=== PATIENT | male | born 1990 | race Caucasian/White ===

== ENCOUNTER 2016-10-09 20:04 | Emergency (ER) | payer OTHER ==
[2016-10-09 20:27] VITALS: BP 140/80; PULSE 103; RESP 18; TEMP 99.4
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
--- NOTE | 2016-10-09 21:24 | XR ---
EXAMINATION TYPE: XR foot complete LT DATE OF EXAM: 10/09/2016 9:04 PM COMPARISON: NONE HISTORY: Pain TECHNIQUE: 3 views FINDINGS: I see no fracture nor dislocation. Metatarsals are intact. There are no erosions. IMPRESSION: Negative left foot exam.
== END 2016-10-09 21:42 | disposition home or self-care (01) ==
LOC: EC 20:04
DX: S90.32XA Contusion of left foot, initial encounter (principal); W17.89XA Other fall from one level to another, initial encounter; F41.9 Anxiety disorder, unspecified; F32.9 Major depressive disorder, single episode, unspecified; F17.200 Nicotine dependence, unspecified, uncomplicated; F12.90 Cannabis use, unspecified, uncomplicated; Z91.030 Bee allergy status; Z88.8 Allergy status to other drugs, medicaments and biological substances; Z79.899 Other long term (current) drug therapy
CPT/HCPCS: 99283

== ENCOUNTER 2016-10-19 11:38 | Emergency (ER) | payer OTHER ==
[2016-10-19 11:59] VITALS: TEMP 97
[2016-10-19 15:32] VITALS: BP 145/68; PULSE 56; RESP 18
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
[2016-10-19] MEDS: ONDANSETRON 4 MG ODT STARTER PACK 2 TAB BTL PO STA (15:39)
== END 2016-10-19 15:43 | disposition home or self-care (01) ==
LOC: EC 11:38
DX: R11.2 Nausea with vomiting, unspecified (principal); F90.9 Attention-deficit hyperactivity disorder, unspecified type; F41.9 Anxiety disorder, unspecified; F32.9 Major depressive disorder, single episode, unspecified; F17.200 Nicotine dependence, unspecified, uncomplicated; Z79.899 Other long term (current) drug therapy; Z88.8 Allergy status to other drugs, medicaments and biological substances; Z91.030 Bee allergy status
CPT/HCPCS: 99283; S0119

== ENCOUNTER 2016-10-21 20:57 | Emergency (ER) | payer OTHER ==
[2016-10-21] MEDS ORDERED: SODIUM CHLORIDE 0.9% 2,000 ML IV STA (21:20)
[2016-10-21] MEDS ORDERED: METOCLOPRAMIDE 5 MG/ML 2 ML VIAL IVP STA (21:20)
[2016-10-21] MEDS ORDERED: diphenhydrAMINE 50 MG/ML 1 ML VIAL IVP STA (21:20)
[2016-10-21 22:06] LABS: Aty Lym Flag Moderate; CH 32.4; CHCM 35.5; HCT 42.4 % (39.0-53.0); HDW 2.37; HGB 14.9 gm/dL (13.0-17.5); Immature Gran Flag Slight; MCH 32.1 pg (25.0-35.0); MCV 91.5 fL (80.0-100.0); Mean Platelet Volume 7.6; RBC 4.63 m/uL (4.30-5.90); RDW 12.1 % (11.5-15.5); WBC 4.5 k/uL (3.8-10.6); WBC (Perox) 4.63
[2016-10-21 22:07] LABS: Appearance,Urine Clear (Clear); Bilirubin,Urine Negative (Negative); Glucose,Urine (UA) Negative (Negative); Ketones,Urine Negative (Negative); Leukocyte Esterase,Urine Negative (Negative); Nitrite,Urine Negative (Negative); PH, Urine 5.5 (5.0-8.0); Protein,Urine Trace (Negative); Specific Gravity,Urine 1.024 (1.001-1.035); UA Billing (MACRO vs. MICRO) CHEM
[2016-10-21 22:15] LABS: ALT 85 U/L (21-72); AST 98 U/L (17-59); Alkaline Phosphatase 82 U/L (38-126); Amylase 51 U/L (30-110); Anion Gap 14 mmol/L; Blood Urea Nitrogen 18 mg/dL (9-20); Calcium 8.7 mg/dL (8.4-10.2); Carbon Dioxide 22 mmol/L (22-30); Chloride 105 mmol/L (98-107); Glucose 101 mg/dL (74-99); Non-African American GFR(MDRD) >60 (>60 ml/min/1.73 sqM); Potassium 3.5 mmol/L (3.5-5.1); Sodium 141 mmol/L (137-145); Total Bilirubin 0.8 mg/dL (0.2-1.3); Total Protein 7.8 g/dL (6.3-8.2)
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
--- NOTE | 2016-10-21 22:25 | XR ---
EXAM: XR KUB, 2 views INDICATION: 26-year-old male with pain. COMPARISON: None. FINDINGS: Single frontal view of the abdomen demonstrates nonspecific air-fluid levels in the distribution of the large intestine which may represent ileus or a nonspecific colitis/enteritis. Distal colonic obstruction is felt less likely. No evidence of organomegaly, abnormal calcifications or obvious soft tissue masses. The osseous structures are intact. IMPRESSION: Nonspecific colonic air-fluid levels without evidence of colonic or small bowel dilatation. Findings may represent ileus or nonspecific colitis/enteritis. Distal colonic obstruction is felt less likely.
[2016-10-21 22:42] LABS: Add Differential Manual Differential
[2016-10-21 22:45] LABS: Nucleated Red Blood Cells 0 /100 WBC (0-0); Total Cells Counted 100
[2016-10-21 22:47] LABS: Manual Review Performed
[2016-10-21] MEDS ORDERED: ONDANSETRON 4 MG/2 ML VIAL IVP STA (22:59)
[2016-10-21 23:40] VITALS: BP 143/71; PULSE 87; RESP 18; TEMP 97.1
== END 2016-10-21 23:40 | disposition home or self-care (01) ==
LOC: EC 20:57
DX: K52.9 Noninfective gastroenteritis and colitis, unspecified (principal); F41.9 Anxiety disorder, unspecified; F32.9 Major depressive disorder, single episode, unspecified; F17.200 Nicotine dependence, unspecified, uncomplicated; Z79.899 Other long term (current) drug therapy; Z91.030 Bee allergy status; Z88.8 Allergy status to other drugs, medicaments and biological substances; F12.90 Cannabis use, unspecified, uncomplicated
CPT/HCPCS: 96374; 96375; 99284; 36415; 80053; 82150; 83690; 85025; 81003; 74000; 96361; J1200; J2765; J2405

== ENCOUNTER 2016-12-15 23:13 | Emergency (ER) | payer OTHER ==
[2016-12-15 23:30] VITALS: TEMP 100.3
[2016-12-16] MEDS ORDERED: cefTRIAXone 1,000 MG VIAL (IM USE) IM STA (00:22)
[2016-12-16] MEDS ORDERED: ACETAMINOPHEN TAB 500 MG TAB PO STA (00:26)
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
[2016-12-16 00:44] VITALS: BP 128/69; PULSE 101; RESP 18
--- NOTE | 2016-12-16 01:09 | XR ---
EXAM: XR Chest, 2 Views CLINICAL HISTORY: Reason: Cough/fever TECHNIQUE: Frontal and lateral views of the chest. COMPARISON: 04/08/16. FINDINGS: Lungs: Mild basilar opacities, possible atelectasis. No consolidation. Pleural space: Unremarkable. No pneumothorax. Heart: Unremarkable. Mediastinum: Unremarkable. Bones/joints: Unremarkable. IMPRESSION: Mild basilar opacities, possible atelectasis. No consolidation.
== END 2016-12-16 00:42 | disposition home or self-care (01) ==
LOC: EC 23:13
DX: J45.909 Unspecified asthma, uncomplicated (principal); R09.81 Nasal congestion; F90.9 Attention-deficit hyperactivity disorder, unspecified type; F32.9 Major depressive disorder, single episode, unspecified; F41.9 Anxiety disorder, unspecified; F17.200 Nicotine dependence, unspecified, uncomplicated; Z79.899 Other long term (current) drug therapy; Z91.030 Bee allergy status; Z88.8 Allergy status to other drugs, medicaments and biological substances
CPT/HCPCS: 71020; 99283; 96372; J0696

== ENCOUNTER → 2017-02-03 | Outpatient (CLI) | payer OTHER ==
--- NOTE | 2017-02-03 12:25 | CT ---
EXAMINATION TYPE: CT chest wo con DATE OF EXAM: 02/03/2017 COMPARISON: Radiographs 12/16/2016 HISTORY: 26-year-old male complains of cough and abnormal CXR. TECHNIQUE: Contiguous axial scanning of the chest without IV contrast. Coronal and sagittal reconstru ctions performed. CT DLP: 556 mGycm Automated exposure control for dose reduction was used. FINDINGS: The heart is normal size without pericardial effusion. Aorta is normal caliber with bovine configuration to the aortic arch. There is soft tissue density in the anterior mediastinum compatible with residual thymus in this rela tively young patient. No thoracic lymphadenopathy allowing for noncontrast technique. Evaluation of the lungs shows minimal diffuse bronchial wall thickening. No consolidation or pleural effusion. Visualized upper abdomen shows no gross abnormality. Bones: Disc/osteophyte complex at T12-L1 mildly narrowing the spinal canal. No osseous destructive pr ocess. No osseous destructive process. IMPRESSION: 1. MINIMAL BRONCHIAL WALL THICKENING COULD REFLECT BRONCHITIS OR CHRONIC ASTHMA. 2. OTHERWISE, NO SPECIFIC ABNORMALITY SEEN.
== END | disposition home or self-care (01) ==
LOC: RADCTMAIN 11:37
PROVIDERS: ATTEND Internal Medicine Pulmonary Disease
DX: J98.09 Other diseases of bronchus, not elsewhere classified (principal); R06.02 Shortness of breath; R05 Cough
CPT/HCPCS: 71250

== ENCOUNTER 2017-02-07 21:14 | Emergency (ER) | payer OTHER ==
[2017-02-07] MEDS ORDERED: KETOROLAC 30 MG/ML 1 ML VIAL IVP STA (21:34)
[2017-02-07] MEDS ORDERED: diphenhydrAMINE 50 MG/ML 1 ML VIAL IVP STA (21:34)
[2017-02-07] MEDS ORDERED: SODIUM CHLORIDE 0.9% 1,000 ML IV ONE ×2 (21:34→23:44)
[2017-02-07] MEDS ORDERED: METOCLOPRAMIDE 5 MG/ML 2 ML VIAL IVP STA (21:34)
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
[2017-02-08 00:18] VITALS: BP 142/63; PULSE 97; RESP 16; TEMP 97.9
== END 2017-02-08 00:17 | disposition home or self-care (01) ==
LOC: EC 21:14 → SUPCPDRO 21:14 → EC 02-08 00:17
DX: G43.909 Migraine, unspecified, not intractable, without status migrainosus (principal); J45.909 Unspecified asthma, uncomplicated; F41.9 Anxiety disorder, unspecified; F32.9 Major depressive disorder, single episode, unspecified; F90.9 Attention-deficit hyperactivity disorder, unspecified type; F17.200 Nicotine dependence, unspecified, uncomplicated; Z79.899 Other long term (current) drug therapy; Z79.51 Long term (current) use of inhaled steroids; Z91.030 Bee allergy status; Z88.8 Allergy status to other drugs, medicaments and biological substances
CPT/HCPCS: 99283 ×2; 96374 ×2; 96375 ×3; 96361 ×3; J1200; J2765; J1885

== ENCOUNTER 2017-02-09 19:35 | Emergency (ER) | payer OTHER ==
[2017-02-09 19:45] VITALS: TEMP 99
[2017-02-09] MEDS ORDERED: SODIUM CHLORIDE 0.9% 1,000 ML IV ONE (20:23)
[2017-02-09 20:42] LABS: Appearance,Urine Clear (Clear); Basophils % (A) 0 %; Bilirubin,Urine Negative (Negative); CH 32.5; CHCM 35.1; Eosinophils # (A) 0.2 k/uL (0-0.7); Eosinophils % (A) 2 %; Glucose,Urine (UA) Negative (Negative); HCT 37.8 % (39.0-53.0); HDW 2.22; HGB 13.1 gm/dL (13.0-17.5); Ketones,Urine Negative (Negative); Leukocyte Esterase,Urine Negative (Negative); Luc # (Auto) 0.33; Luc % (Auto) 4; Lymphocytes % (A) 23 %; MCH 32.2 pg (25.0-35.0); MCHC 34.7 g/dL (31.0-37.0); MCV 93.1 fL (80.0-100.0); Mean Platelet Volume 8.4; Monocytes # (A) 0.8 k/uL (0-1.0); Monocytes % (A) 9 %; Neutrophils # (A) 5.4 k/uL (1.3-7.7); Neutrophils % (A) 62 %; Nitrite,Urine Negative (Negative); PH, Urine 6.5 (5.0-8.0); Protein,Urine Trace (Negative); RBC 4.07 m/uL (4.30-5.90); RDW 13.3 % (11.5-15.5); Specific Gravity,Urine 1.024 (1.001-1.035); UA Billing (MACRO vs. MICRO) CHEM; WBC 8.7 k/uL (3.8-10.6); WBC (Perox) 8.86
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
[2017-02-09 20:51] LABS: ALT 29 U/L (21-72); AST 19 U/L (17-59); Alkaline Phosphatase 64 U/L (38-126); Amylase 48 U/L (30-110); Anion Gap 13 mmol/L; Blood Urea Nitrogen 15 mg/dL (9-20); Carbon Dioxide 25 mmol/L (22-30); Chloride 104 mmol/L (98-107); Glucose 96 mg/dL (74-99); Non-African American GFR(MDRD) >60 (>60 ml/min/1.73 sqM); Potassium 3.8 mmol/L (3.5-5.1); Sodium 142 mmol/L (137-145); Total Bilirubin 0.7 mg/dL (0.2-1.3); Total Protein 6.6 g/dL (6.3-8.2)
[2017-02-09 20:54] VITALS: BP 120/88; PULSE 86; RESP 18
== END 2017-02-09 21:30 | disposition home or self-care (01) ==
LOC: EC 19:35
DX: R11.2 Nausea with vomiting, unspecified (principal); J45.909 Unspecified asthma, uncomplicated; F90.9 Attention-deficit hyperactivity disorder, unspecified type; F32.9 Major depressive disorder, single episode, unspecified; F41.9 Anxiety disorder, unspecified; F17.200 Nicotine dependence, unspecified, uncomplicated; Z79.51 Long term (current) use of inhaled steroids; Z79.899 Other long term (current) drug therapy; Z91.030 Bee allergy status; Z88.8 Allergy status to other drugs, medicaments and biological substances
CPT/HCPCS: 36415; 80053; 81003; 82150; 83690; 85025; 96360; 99284

== ENCOUNTER 2017-03-03 16:55 | Emergency (ER) | payer OTHER ==
[2017-03-03 17:00] VITALS: BP 141/88; PULSE 110; RESP 18; TEMP 100.5
[2017-03-03] MEDS ORDERED: ONDANSETRON 4 MG/2 ML VIAL IVP STA (18:54)
[2017-03-03] MEDS ORDERED: SODIUM CHLORIDE 0.9% 1,000 ML IV STA (18:54)
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
--- NOTE | 2017-03-03 19:31 | XR ---
EXAMINATION TYPE: XR chest 2V DATE OF EXAM: 03/03/2017 COMPARISON: 12/16/2016 HISTORY: Abdominal pain and vomiting TECHNIQUE: Frontal and lateral views of the chest are obtained. FINDINGS: Heart and mediastinum are normal. Lungs are clear. Diaphragm is normal. There is probably an old left clavicle fracture. Bony thorax is intact. IMPRESSION: No active cardiopulmonary disease. No change.
--- NOTE | 2017-03-03 19:33 | XR ---
EXAMINATION TYPE: XR KUB DATE OF EXAM: 03/03/2017 COMPARISON: 10/21/2016 HISTORY: Abdominal pain TECHNIQUE: 2 views FINDINGS: Bowel gas pattern is normal. There is no sign of intestinal obstruction or pneumoperitoneum . Fecal pattern is normal. Lung bases are clear. There are no pathologic calcifications. IMPRESSION: Nonacute abdomen. There is clearing of the large bowel fluid levels compared to last exam .
[2017-03-03 19:35] LABS: Basophils % (A) 1 %; CH 33.1; CHCM 35.1; Eosinophils # (A) 0.2 k/uL (0-0.7); Eosinophils % (A) 2 %; HCT 45.9 % (39.0-53.0); HDW 2.13; HGB 15.4 gm/dL (13.0-17.5); Luc # (Auto) 0.24; Luc % (Auto) 3; Lymphocytes % (A) 27 %; MCH 31.8 pg (25.0-35.0); MCHC 33.6 g/dL (31.0-37.0); MCV 94.7 fL (80.0-100.0); Monocytes # (A) 0.5 k/uL (0-1.0); Monocytes % (A) 6 %; Neutrophils # (A) 4.6 k/uL (1.3-7.7); Neutrophils % (A) 61 %; RBC 4.85 m/uL (4.30-5.90); RDW 13.7 % (11.5-15.5); WBC 7.5 k/uL (3.8-10.6); WBC (Perox) 7.35
[2017-03-03 19:37] LABS: Appearance,Urine Clear (Clear); Bilirubin,Urine Negative (Negative); Glucose,Urine (UA) Negative (Negative); Ketones,Urine Negative (Negative); Leukocyte Esterase,Urine Negative (Negative); Nitrite,Urine Negative (Negative); PH, Urine 6.5 (5.0-8.0); Protein,Urine Negative (Negative); Specific Gravity,Urine 1.017 (1.001-1.035); UA Billing (MACRO vs. MICRO) CHEM; Urobilinogen,Urine <2.0 mg/dL (<2.0)
[2017-03-03 19:50] LABS: ALT 31 U/L (21-72); AST 18 U/L (17-59); Alkaline Phosphatase 69 U/L (38-126); Amylase 39 U/L (30-110); Anion Gap 13 mmol/L; Blood Urea Nitrogen 10 mg/dL (9-20); Calcium 9.4 mg/dL (8.4-10.2); Carbon Dioxide 23 mmol/L (22-30); Chloride 106 mmol/L (98-107); Glucose 88 mg/dL (74-99); Non-African American GFR(MDRD) >60 (>60 ml/min/1.73 sqM); Sodium 142 mmol/L (137-145); Total Bilirubin 0.6 mg/dL (0.2-1.3); Total Protein 7.3 g/dL (6.3-8.2)
== END 2017-03-03 20:33 | disposition home or self-care (01) ==
LOC: EC 16:55
DX: K21.9 Gastro-esophageal reflux disease without esophagitis (principal); R11.2 Nausea with vomiting, unspecified; J45.909 Unspecified asthma, uncomplicated; F90.9 Attention-deficit hyperactivity disorder, unspecified type; F32.9 Major depressive disorder, single episode, unspecified; F41.9 Anxiety disorder, unspecified; F17.200 Nicotine dependence, unspecified, uncomplicated; Z79.51 Long term (current) use of inhaled steroids; Z79.899 Other long term (current) drug therapy; Z88.8 Allergy status to other drugs, medicaments and biological substances; Z91.030 Bee allergy status
CPT/HCPCS: 36415; 93005; 80053; 82150; 83605; 83690; 85025; 81003; 87040; 71020; 74000; 99284; 96374; 96361; J2405

== ENCOUNTER 2017-03-09 19:05 | Inpatient (IN) | payer MEDICAID, OTHER ==
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
[2017-03-09] MEDS ORDERED: MAGNESIUM HYDROXIDE 2,400 MG/10 ML CUP PO PRN (23:17)
[2017-03-09] MEDS ORDERED: ZIPRASIDONE 20 MG VIAL IM PRN (23:17)
[2017-03-09] MEDS ORDERED: LORazepam 1 MG TAB PO PRN (23:17)
[2017-03-09] MEDS ORDERED: ACETAMINOPHEN TAB 325 MG TAB PO PRN (23:17)
[2017-03-09] MEDS ORDERED: MAG HYDROX/AL HYDROX/SIMETH 30 ML CUP PO PRN (23:17)
[2017-03-09 23:54] VITALS: BMI 21.5
[2017-03-10 08:40] LABS: Basophils % (A) 1 %; CH 33.1; CHCM 34.9; Eosinophils # (A) 0.2 k/uL (0-0.7); Eosinophils % (A) 5 %; HCT 44.5 % (39.0-53.0); HDW 2.19; HGB 15.1 gm/dL (13.0-17.5); Luc # (Auto) 0.22; Luc % (Auto) 4; Lymphocytes # (A) 2.1 k/uL (1.0-4.8); Lymphocytes % (A) 41 %; MCH 32.4 pg (25.0-35.0); MCV 95.1 fL (80.0-100.0); Mean Platelet Volume 8.2; Monocytes # (A) 0.4 k/uL (0-1.0); Monocytes % (A) 8 %; Neutrophils # (A) 2.1 k/uL (1.3-7.7); Neutrophils % (A) 41 %; RBC 4.68 m/uL (4.30-5.90); RDW 13.3 % (11.5-15.5); WBC 5.1 k/uL (3.8-10.6); WBC (Perox) 4.76
[2017-03-10 09:05] LABS: ALT 28 U/L (21-72); AST 14 U/L (17-59); Alkaline Phosphatase 58 U/L (38-126); Anion Gap 10 mmol/L; Bilirubin, Delta 0.2 mg/dL (0.0-0.2); Blood Urea Nitrogen 13 mg/dL (9-20); Calcium 9.4 mg/dL (8.4-10.2); Carbon Dioxide 27 mmol/L (22-30); Chloride 106 mmol/L (98-107); Glucose 85 mg/dL (74-99); Non-African American GFR(MDRD) >60 (>60 ml/min/1.73 sqM); Potassium 4.9 mmol/L (3.5-5.1); Sodium 143 mmol/L (137-145); Total Bilirubin 0.9 mg/dL (0.2-1.3); Total Protein 7.1 g/dL (6.3-8.2)
[2017-03-10] MEDS: NICOTINE 14MG/24HR PATCH TRANSDERM SCH (09:51)
[2017-03-10] MEDS: LISINOPRIL 5 MG TAB PO SCH (10:09)
[2017-03-10] MEDS: BECLOMETHASONE DIP 80 MCG/PUFF INHALER INHALATION SCH ×2 (12:26→19:05)
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
[2017-03-10] MEDS: ALBUTEROL INHALER 60 PUFF/8 GM INHALER INHALATION PRN (19:05)
[2017-03-10] MEDS: OXYBUTYNIN CHLORIDE 5 MG TAB PO SCH (20:54)
[2017-03-10] MEDS ORDERED: QUEtiapine 200 MG TAB PO SCH (21:00)
[2017-03-11] MEDS: OXYBUTYNIN CHLORIDE 5 MG TAB PO SCH ×2 (08:10→20:45)
[2017-03-11] MEDS: NICOTINE 14MG/24HR PATCH TRANSDERM SCH (08:10)
[2017-03-11] MEDS: LISINOPRIL 5 MG TAB PO SCH (08:10)
[2017-03-11] MEDS: BECLOMETHASONE DIP 80 MCG/PUFF INHALER INHALATION SCH (09:40)
[2017-03-11 09:57] LABS: Appearance,Urine Clear (Clear); Bilirubin,Urine Negative (Negative); Glucose,Urine (UA) Negative (Negative); Ketones,Urine Negative (Negative); Leukocyte Esterase,Urine Negative (Negative); Nitrite,Urine Negative (Negative); PH, Urine 6.5 (5.0-8.0); Protein,Urine Negative (Negative); Specific Gravity,Urine 1.028 (1.001-1.035); UA Billing (MACRO vs. MICRO) CHEM
[2017-03-11] MEDS: QUEtiapine 200 MG TAB PO SCH ×3 (13:43→20:45)
--- NOTE | 2017-03-12 08:03 | PN ---
PROGRESS NOTE DATE OF SERVICE: 03/11/2017. CHIEF COMPLAINT: The patient was admitted due to increasing depression with suicide thoughts. He had been living in a correction though was evicted. He stated he tried to hang himself on a tree but the branch broke. He has had a history of suicide attempts in the past. INTERVAL HISTORY: The patient has been doing fair. He had a quiet evening last night. He slept fair today. He has been up. He tends to isolate. He continues to have anxiety complaints. He notes that when he followed by [facility] he had been on Seroquel 400 mg a day which he felt helped mainly with sleep. Note that Dr. Klein restarted Seroquel with a plan to possibly titrate up on his medication. The patient states that he does feel that in the past Seroquel has helped him both with some of his anxiety and depression issues as well as sleepy. Also does have a history of apparent manic episodes and has been diagnosed with bipolar disorder. He says that Seroquel does not make him excessively sleepy in the daytime. He feels it helps keep his thoughts clear and somewhat slowed down. He has not had change in his general health. He tolerates the psychotropic medication. MENTAL STATUS: Patient gave fair eye contact. He was a little restless. Speech was clear. He answered questions with brief responses. He had a quiet manner. His affect was blunted. His mood reserved. He seemed somewhat distressed. ASSESSMENT: I will continue the current diagnosis and treatment plan. I will increase the patient's Seroquel I discussed with the patient that we could increase his dose to 200 mg 3 times a day. I encouraged the patient to monitor to see how he does as far as any daytime sedation. I discussed with the patient the importance of trying to make groups to help with addressing some of his stress issues and helping to develop coping skills. We will continue to focus on stabilization and discharge planning. MMGONZALESL / SARAYN: [id number] /
[2017-03-12] MEDS: LISINOPRIL 5 MG TAB PO SCH (08:20)
[2017-03-12] MEDS: OXYBUTYNIN CHLORIDE 5 MG TAB PO SCH ×2 (08:20→20:03)
[2017-03-12] MEDS: NICOTINE 14MG/24HR PATCH TRANSDERM SCH (08:20)
[2017-03-12] MEDS: BECLOMETHASONE DIP 80 MCG/PUFF INHALER INHALATION SCH ×3 (08:52→21:33)
[2017-03-12] MEDS: QUEtiapine 200 MG TAB PO SCH ×3 (09:50→20:03)
[2017-03-13] MEDS: LISINOPRIL 5 MG TAB PO SCH (08:33)
[2017-03-13] MEDS: NICOTINE 14MG/24HR PATCH TRANSDERM SCH (08:33)
[2017-03-13] MEDS: BECLOMETHASONE DIP 80 MCG/PUFF INHALER INHALATION SCH ×3 (08:59→21:13)
[2017-03-13] MEDS: OXYBUTYNIN CHLORIDE 5 MG TAB PO SCH ×2 (09:49→20:29)
--- NOTE | 2017-03-13 11:25 | PN ---
PROGRESS NOTE DATE OF SERVICE: 03/12/2017. CHIEF COMPLAINT: The patient was admitted due to increasing depression with suicide thoughts. He had been living in a longterm though was evicted. He stated he tried to hang himself on a tree but the branch broke. He has a history of suicide attempts in the past. INTERVAL HISTORY: The patient had a quiet evening last night. He slept through the night. He said he has been very tired today and has slept much of the day. He has not been attending groups. He tends to be withdrawn and keeps to himself. He will come out and socialize a little with others. He says that he has been quite tired much of the time and that this is been how things are for him for quite a while prior to coming into the hospital. He is not clear that medications may be causing sedation. He has not had change in his general health. He reports that he has had no problems with his medications. MENTAL STATUS: Patient sat without restlessness. Eye contact was fair. Psychomotor activity is slowed. Speech was monotone. He answered questions with brief responses. His thoughts were clear. Affect blunted. Mood reserved. He was somewhat distressed. ASSESSMENT: I will continue the current diagnosis and general treatment plan. I will change his Seroquel. Will give him Seroquel XR 100 mg in the morning, Seroquel XR 100 mg at 4:00 pm and regular Seroquel 200 mg at bedtime. The patient does note that the suicidal thoughts have abated. He says anxiety is less. We talked about discharge planning which would include setting up some kind of a family meeting or contact with a support person. Will continue to focus on stabilization and discharge planning. DALIA / SARAYN: [id number] / CLAIRE
--- NOTE | 2017-03-13 11:52 | P.PN ---
Progress Note - Text Interval History: Patient is a 26-year-old male who was seen today and he reports that he is still feeling depressed, stated this was because his brother visited yesterday was only able to stay for 5 minutes. Patient states that he continues to miss everyone who is dyed in his family or was close to him. Patient states that there is no change in his depression and he feels the same as he does on admission patient reported that he is not having any suicidal thoughts and no auditory hallucinations. Patient states that his stomach is upset today. Mental Status: Appearance/Attitude: Patient is appropriately dressed, makes intermittent eye contact and is cooperative. Behavior: Patient does not display any psychomotor agitation or retardation. Speech/Language: Patient's speech is spontaneous, normal volume and rhythm and is coherent. Thought Process: Patient was goal-directed, is no evidence of circumstantial or tangential thought no loose associations or flight of ideas. Thought Content: Patient denies any auditory or visual hallucinations no delusions or paranoid ideation were elicited. The patient reports that he continues to feel depressed, missing everyone who has and states that he feels the same as he did on admission. Patient states that he is eating and sleeping well. Suicidal/Homicidal Ideation: Patient denies any current suicidal or homicidal ideation. Sensorium/Cognition: Patient is alert and oriented to person, place, and time and his memory is grossly intact. Mood/Affect: Patient's mood remains depressed, and his affect is blunted. Insight/Judgement: Patient's insight and judgment are fair. Assessment: Patient continues to report feeling depressed, missing everyone who has in the past and upset that his brother can only visit for 5 minutes yesterday. Patient reports no complaints of side effects from the medication but states that he was given Seroquel during the day and is feeling a little sleepy this morning. Patient states that his stomach is upset today and he is unable to tell me why. Plan: Will discontinue Seroquel extended release twice a day during the day, he received 1 dose this morning he can receive 200 mg of Seroquel immediate release at bedtime and tomorrow will begin Seroquel 300 mg at bedtime. Patient was on a dose of 400 mg at bedtime in the past. Patient was encouraged to attend and participate in groups and activities. Patient continues to require hospitalization to stabilize his mood.
[2017-03-13] MEDS: QUEtiapine 200 MG TAB PO SCH (20:29)
[2017-03-14] MEDS: OXYBUTYNIN CHLORIDE 5 MG TAB PO SCH ×2 (08:30→21:10)
[2017-03-14] MEDS: NICOTINE 14MG/24HR PATCH TRANSDERM SCH (08:30)
[2017-03-14] MEDS: LISINOPRIL 5 MG TAB PO SCH (08:30)
[2017-03-14] MEDS: BECLOMETHASONE DIP 80 MCG/PUFF INHALER INHALATION SCH ×2 (09:30→21:23)
--- NOTE | 2017-03-14 13:17 | P.PN ---
Progress Note - Text Interval History: Patient is a 26-year-old male who was seen today and initially refused to speak with me but then did come back to the interview room. Patient reported that he did not sleep well last evening and had a dream in which he committed suicide. Patient states he has ongoing nightmares that disrupt his sleep. Patient also left his nicotine patch on last evening. Patient reports that he continues to feel depressed and irritable and has been spending time in his room due to the noise that is on the unit. Patient reports no current suicidal ideation but states he continues to feel depressed and irritable. Mental Status: Appearance/Attitude: Patient is neatly and appropriately dressed , makes good eye contact and is cooperative. Behavior: Patient does not display any psychomotor agitation or retardation. Speech/Language: Patient is spontaneous in his speech is of normal volume and rhythm and he is coherent. Thought Process: Patient is goal-directed and there is no evidence of circumstantial or tangential thought and no loose associations or flight of ideas Thought Content: Patient denies any auditory or visual hallucinations no delusions or paranoid ideation are elicited. Patient states his sleep is still disrupted by nightmares and last night he had one in which he committed suicide. Patient states that he continues to feel irritable and dislikes all the noise on the inpatient unit. Patient states his appetite is good. Suicidal/Homicidal Ideation: Patient denies any current suicidal or homicidal ideation. Sensorium/Cognition: Patient is alert and oriented to person, place, and time and his memory is grossly intact. Mood/Affect: Patient's mood is slightly irritable and his affect is blunted. Insight/Judgement: Patient's insight and judgment are fair. Assessment: Patient and I discussed his poor sleep and his continued nightmares that he states he has had for a number of years without any relief. Patient also kept his nicotine patch on through the out the evening as well. Patient reports he continues to feel irritable and has been avoiding going to groups and staying in his room due to the amount of noise on the inpatient unit. Patient is not reporting any side effects from the medication. Plan: Patient and I discussed increasing his Seroquel to 300 mg at bedtime tonight his prior dose was 400 mg. I also discussed with him removing his nicotine patch at night before he goes to bed. Because of his nightmares I discussed the use and side effects of prazosin with the patient and will begin 1 mg at bedtime the patient was cautioned to sit at the edge of the bed when he gets up at night as he is already on another antihypertensive medication. Patient will continue to remain in the hospital due to his continued depression , irritability.
[2017-03-14] MEDS ORDERED: QUEtiapine 100 MG TAB PO SCH (21:00)
[2017-03-14] MEDS: PRAZOSIN 1 MG CAP PO SCH (21:10)
[2017-03-14] MEDS: ALBUTEROL INHALER 60 PUFF/8 GM INHALER INHALATION PRN (21:23)
[2017-03-15] MEDS: NICOTINE 14MG/24HR PATCH TRANSDERM SCH (08:34)
[2017-03-15] MEDS: OXYBUTYNIN CHLORIDE 5 MG TAB PO SCH ×2 (08:34→20:47)
[2017-03-15] MEDS: LISINOPRIL 5 MG TAB PO SCH (08:34)
[2017-03-15] MEDS: BECLOMETHASONE DIP 80 MCG/PUFF INHALER INHALATION SCH ×2 (09:32→21:18)
--- NOTE | 2017-03-15 10:55 | P.PN ---
Progress Note - Text Interval History: Patient is 26-year-old male who is seen today and he reports that he had much fewer nightmares last evening after beginning presently. He states that he is no longer having any suicidal thoughts and is feeling much less depressed. Patient reports no side effects from the president seen and reports no complaints of dizziness or lightheadedness. He states his sleep was interrupted due to staff coming into the room at night to check on patient's. Patient states that he is eating well. Patient continues to not attend groups stating that he doesn't like to be around a lot of people. Patient states that he is waiting for a intake to [facility] for inpatient rehab. Mental Status: Appearance/Attitude: Patient is appropriately dressed, makes good eye contact and is cooperative. Behavior: Patient does not display any psychomotor agitation or retardation. Speech/Language: Patient's speech is spontaneous and of normal volume and rhythm and he is coherent. Thought Process: Patient is goal directed and there is no evidence of circumstantial or tangential thought and no loose associations or flight of ideas. Thought Content: Patient denies any auditory or visual hallucinations no delusions or paranoid ideation were elicited. Patient states that he is feeling less depressed, reports much fewer nightmares last evening but states his sleep is still interrupted due to staff checking on patient's. Suicidal/Homicidal Ideation: Patient denies any current suicidal or homicidal ideation. Sensorium/Cognition: Patient is alert and oriented to person, place, and time and his memory is grossly intact. Mood/Affect: Patient's mood is less depressed and his affect is slightly brighter. Insight/Judgement: Patient's insight and judgment are fair. Assessment: Patient reports a good response to president seen with a decrease in the number of nightmares that he had last evening but his sleep is still interrupted, he reports no suicidal ideation and states that he is feeling less depressed. Patient voiced that he wishes to consider inpatient rehab at [facility] and is waiting for a call back from them for an intake date. Patient states he used marijuana and alcohol to cope. Plan: Patient will continue on prazosin 1 mg at bedtime to target his nightmares and will increase his Seroquel to 400 mg at bedtime his prior dose to target his depression. Patient and I discussed discharge plans he states that he will be living in a custodial but has contacted [facility] and is waiting for a call back for an intake appointment to go to inpatient rehab care. Patient and I discussed possible discharge plans as Monday. Patient was encouraged to attend groups and activities]
[2017-03-15] MEDS: PRAZOSIN 1 MG CAP PO SCH (20:47)
[2017-03-15 20:51] VITALS: RESP 16
[2017-03-15] MEDS ORDERED: QUEtiapine 400 MG TAB PO SCH (21:00)
[2017-03-16 06:54] VITALS: TEMP 98
[2017-03-16] MEDS: LISINOPRIL 5 MG TAB PO SCH (08:07)
[2017-03-16] MEDS: NICOTINE 14MG/24HR PATCH TRANSDERM SCH (08:07)
[2017-03-16] MEDS: OXYBUTYNIN CHLORIDE 5 MG TAB PO SCH (08:08)
[2017-03-16] MEDS: BECLOMETHASONE DIP 80 MCG/PUFF INHALER INHALATION SCH (08:22)
--- NOTE | 2017-03-16 09:55 | P.DS ---
Providers Date of admission: 03/09/17 22:50 Expected date of discharge: 03/16/17 Attending physician: Lesley Frias MD Consults: 03/09/17 23:17 Consult Physician Routine Consulting Provider: Froylan Clement Consult Reason/Comments: medical management Do you want consulting provider notified?: Yes, Notify in am Primary care physician: Sofy Marie [facility] Course: Discharge Diagnoses: Bipolar type I disorder, current episode depressed; cannabis use disorder in early remission; alcohol use disorder in early remission Reason for Admission: Patient is a 26-year-old male who presented to the emergency room reporting that he had suicidal ideation and a recent attempt to try to hang himself from a tree branch but it broke and a friend called EMS. Patient states that he been living in a fci and they had asked him to leave prior to admission when they stated that he lied to them about being at [facility] yesterday, apparently they wanted the patient to assist in filling envelopes with flyers. Patient reported that he had seen his therapist at [facility] but had not been taking his medications for the last month. Patient had been living at [facility] from May until the beginning of February 2017 when he left there. Patient states after he left he did have an episode of drinking alcohol that was laced with Ambien and lost his medications at the friend's house. Patient states he had not taken any of his medications even though he did refill the prescription since early February. Patient states he been feeling depressed off the medication and attempted to hang himself from a tree branch but the branch broke. Patient has a history of multiple suicide attempts in the past at least 10 times by his estimation. This is his fourth hospital stay and his last was in April 2016. Patient had been followed at [facility] and had been taking Seroquel 400 mg at bedtime and using Neurontin for the pain in his leg but he reported it was not effective. Hospital Course: Patient was admitted on a voluntary basis, routine laboratory studies were ordered, medical consultation was obtained and the patient was placed on routine observation. Patient was ordered group and activity therapy which she attended infrequently due to not liking being in groups. Patient and I reviewed his medication and we discussed restarting the Seroquel which was slowly titrated to his prior dose of 400 mg at bedtime. His Neurontin was not restarted as the patient did not feel it was helpful for him. Patient reported that he was having nightmares about prior traumas and so was begun on prazosin 1 mg at bedtime. Patient was also continued on his lisinopril, inhalers and Ditropan for his medical problems. Patient responded well to the prazosin with reported no further nightmares and his sleep improved. Patient on the Seroquel slowly improved, no further suicidal ideation and he reported he was no longer feeling depressed. Patient was sleeping and eating well. Patient continued to spend most of his time in his room stating that he disliked the noise on the unit as well as not liking group and activity therapy. Discharge Mental Status:Appearance/Attitude: Patient is neatly and appropriately dressed, makes good eye contact and is cooperative. Behavior: Patient does not display any psychomotor agitation or retardation. Speech/Language: Patient's speech is spontaneous and of normal volume and rhythm and he is coherent. Thought Process: Patient is goal directed, is no evidence of circumstantial or tangential thought and no loose associations or flight of ideas. Thought Content: Patient denies any auditory or visual hallucinations no delusions or paranoid ideation are elicited. Patient reports that he is no longer having any nightmares about prior traumas and his sleep has improved. Patient remains somewhat isolative stating that he doesn't like the noise on the unit and dislikes groups. Patient is eating well. Suicidal/Homicidal Ideation: Patient denies any current suicidal or homicidal ideation. Sensorium/Cognition: Patient is alert and oriented to person, place, and time and his memory is grossly intact. Mood/Affect: Patient's mood is euthymic and his affect is slightly blunted. Patient states he is no longer feeling depressed. Insight/Judgement: Patient's insight and judgment are fair. Laboratory Last Values WBC 5.1 k/uL (3.8-10.6) 03/10/17 07:57 RBC 4.68 m/uL (4.30-5.90) 03/10/17 07:57 Hgb 15.1 gm/dL (13.0-17.5) 03/10/17 07:57 Hct 44.5 % (39.0-53.0) 03/10/17 07:57 MCV 95.1 fL (80.0-100.0) 03/10/17 07:57 MCH 32.4 pg (25.0-35.0) 03/10/17 07:57 MCHC 34.0 g/dL (31.0-37.0) 03/10/17 07:57 RDW 13.3 % (11.5-15.5) 03/10/17 07:57 Plt Count 198 k/uL (150-450) 03/10/17 07:57 Neutrophils % 41 % 03/10/17 07:57 Lymphocytes % 41 % 03/10/17 07:57 Monocytes % 8 % 03/10/17 07:57 Eosinophils % 5 % 03/10/17 07:57 Basophils % 1 % 03/10/17 07:57 Neutrophils # 2.1 k/uL (1.3-7.7) 03/10/17 07:57 Lymphocytes # 2.1 k/uL (1.0-4.8) 03/10/17 07:57 Monocytes # 0.4 k/uL (0-1.0) 03/10/17 07:57 Eosinophils # 0.2 k/uL (0-0.7) 03/10/17 07:57 Basophils # 0.0 k/uL (0-0.2) 03/10/17 07:57 Sodium 143 mmol/L (137-145) 03/10/17 07:57 Potassium 4.9 mmol/L (3.5-5.1) 03/10/17 07:57 Chloride 106 mmol/L (98-107) 03/10/17 07:57 Carbon Dioxide 27 mmol/L (22-30) 03/10/17 07:57 Anion Gap 10 mmol/L 03/10/17 07:57 BUN 13 mg/dL (9-20) 03/10/17 07:57 Creatinine 0.93 mg/dL (0.66-1.25) 03/10/17 07:57 Est GFR (MDRD) Af Amer >60 (>60 ml/min/1.73 sqM) 03/10/17 07:57 Est GFR (MDRD) Non-Af >60 (>60 ml/min/1.73 sqM) 03/10/17 07:57 Glucose 85 mg/dL (74-99) 03/10/17 07:57 Calcium 9.4 mg/dL (8.4-10.2) 03/10/17 07:57 Total Bilirubin 0.9 mg/dL (0.2-1.3) 03/10/17 07:57 Conjugated Bilirubin 0.0 mg/dL (0.0-0.3) 03/10/17 07:57 Unconjugated Bilirubin 0.7 mg/dL (0.0-1.1) 03/10/17 07:57 Delta Bilirubin 0.2 mg/dL (0.0-0.2) 03/10/17 07:57 AST 14 U/L (17-59) L 03/10/17 07:57 ALT 28 U/L (21-72) 03/10/17 07:57 Alkaline Phosphatase 58 U/L (38-126) 03/10/17 07:57 Total Protein 7.1 g/dL (6.3-8.2) 03/10/17 07:57 Albumin 4.4 g/dL (3.5-5.0) 03/10/17 07:57 TSH 2.060 mIU/L (0.465-4.680) 03/10/17 07:57 Urine Color Yellow 03/11/17 09:45 Urine Appearance Clear (Clear) 03/11/17 09:45 Urine pH 6.5 (5.0-8.0) 03/11/17 09:45 Ur Specific [place] 1.028 (1.001-1.035) 03/11/17 09:45 Urine Protein Negative (Negative) 03/11/17 09:45 Urine Glucose (UA) Negative (Negative) 03/11/17 09:45 Urine Ketones Negative (Negative) 03/11/17 09:45 Urine Blood Negative (Negative) 03/11/17 09:45 Urine Nitrite Negative (Negative) 03/11/17 09:45 Urine Bilirubin Negative (Negative) 03/11/17 09:45 Urine Urobilinogen 2.0 mg/dL (<2.0) 03/11/17 09:45 Ur Leukocyte Esterase Negative (Negative) 03/11/17 09:45 Urine Opiates Screen Not Detected (NotDetected) 03/09/17 19:23 Ur Oxycodone Screen Not Detected (NotDetected) 03/09/17 19:23 Urine Methadone Screen Not Detected (NotDetected) 03/09/17 19:23 Ur Propoxyphene Screen Not Detected (NotDetected) 03/09/17 19:23 Ur Barbiturates Screen Not Detected (NotDetected) 03/09/17 19:23 U Tricyclic Antidepress Not Detected (NotDetected) 03/09/17 19:23 Ur Phencyclidine Scrn Not Detected (NotDetected) 03/09/17 19:23 Ur Amphetamines Screen Not Detected (NotDetected) 03/09/17 19:23 U Methamphetamines Scrn Not Detected (NotDetected) 03/09/17 19:23 U Benzodiazepines Scrn Not Detected (NotDetected) 03/09/17 19:23 Urine Cocaine Screen Not Detected (NotDetected) 03/09/17 19:23 U Marijuana (THC) Screen Not Detected (NotDetected) 03/09/17 19:23 Risk Assessment: Patient's risk for self-harm remains high due to his prior suicide attempts, prior use of alcohol and drugs and noncompliance with medication Discharge Plan: Patient states he will be living in a fci as he has no place to live. Patient and I also discussed the need for follow-up at [facility] and compliance with his medication. Patient will continue on Seroquel 400 mg at bedtime, prazosin 1 mg at bedtime and will also continue on lisinopril, his inhalers and Ditropan for his medical problems. Patient also requested nicotine patches as he wishes to stop smoking. Patient and I also discussed the importance of remaining sober and not drinking or using drugs. Patient will be followed up at [facility] and he was encouraged to be compliant with medications and appointments.Patient was also encouraged to followup with his PCP in the next week. Patient Condition at Discharge: Stable Plan - Discharge Summary New Discharge Prescriptions: New Nicotine 14Mg/24Hr Patch [Habitrol] 1 patch TRANSDERM DAILY #14 patch Prazosin [Minipress] 1 mg PO HS #14 cap Continue Albuterol Inhaler [Ventolin Hfa Inhaler] 1 - 2 puff INHALATION RT-Q4H PRN 30 Days PRN Reason: Shortness Of Breath Beclomethasone Dipropionate [Qvar 80 mcg] 2 puff INHALATION RT-BID 30 Days Lisinopril [Prinivil] 5 mg PO DAILY #14 Oxybutynin Chloride 5 mg PO BID #28 QUEtiapine FUMARATE [SEROquel] 400 mg PO HS #14 Discontinued Gabapentin [Neurontin] 300 mg PO QAM Gabapentin [Neurontin] 600 mg PO HS Omeprazole [PriLOSEC] 20 mg PO AC-BRKFST #14 cap Ondansetron Odt [Zofran Odt] 4 mg PO Q8HR PRN #10 tab PRN Reason: Nausea Discharge Medication List Albuterol Inhaler [Ventolin Hfa Inhaler] 1 - 2 puff INHALATION RT-Q4H PRN 30 Days 03/16/17 [Rx] Beclomethasone Dipropionate [Qvar 80 mcg] 2 puff INHALATION RT-BID 30 Days 03/16 [Rx] Lisinopril [Prinivil] 5 mg PO DAILY #14 03/16/17 [Rx] Nicotine 14Mg/24Hr Patch [Habitrol] 1 patch TRANSDERM DAILY #14 patch 03/16/17 [ Rx] Oxybutynin Chloride 5 mg PO BID #28 03/16/17 [Rx] Prazosin [Minipress] 1 mg PO HS #14 cap 03/16/17 [Rx] QUEtiapine FUMARATE [SEROquel] 400 mg PO HS #14 03/16/17 [Rx] Follow up Appointment(s)/Referral(s): Sofy Marie MD [Primary Care Provider] - 1-2 days Discharge Disposition: HOME SELF-CARE
[2017-03-16 10:04] VITALS: BP 119/69; PULSE 79
== END 2017-03-16 13:31 | disposition home or self-care (01) | DRG 885 ==
LOC: EC 19:05 → 3MHU 22:50
PROVIDERS: ADMIT Psychiatry & Neurology Psychiatry; ATTEND Psychiatry & Neurology Psychiatry
DX: F31.9 Bipolar disorder, unspecified (principal); D72.1 Eosinophilia; R45.851 Suicidal ideations; I10 Essential (primary) hypertension; F43.10 Post-traumatic stress disorder, unspecified; F90.9 Attention-deficit hyperactivity disorder, unspecified type; J45.991 Cough variant asthma; N32.81 Overactive bladder; F17.200 Nicotine dependence, unspecified, uncomplicated; F20.9 Schizophrenia, unspecified; F12.90 Cannabis use, unspecified, uncomplicated; Z79.899 Other long term (current) drug therapy; Z83.3 Family history of diabetes mellitus; Z91.14 Patient's other noncompliance with medication regimen; Z91.5 Personal history of self-harm; Z81.8 Family history of other mental and behavioral disorders; Z81.4 Family history of other substance abuse and dependence; Z88.8 Allergy status to other drugs, medicaments and biological substances; Z91.030 Bee allergy status; Z91.19 Patient's noncompliance with other medical treatment and regimen; F41.9 Anxiety disorder, unspecified
CPT/HCPCS: 80053; 80306; 81003; 82075; 82248; 84443; 85025; 94640; 99285

== ENCOUNTER 2017-05-18 12:19 | Emergency (ER) | payer OTHER ==
[2017-05-18] MEDS ORDERED: ONDANSETRON 4 MG/2 ML VIAL IVP STA (13:08)
[2017-05-18] MEDS ORDERED: SODIUM CHLORIDE 0.9% 1,000 ML IV ONE (13:08)
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
[2017-05-18 13:22] LABS: Basophils % (A) 0 %; CH 32.1; CHCM 34.1; Eosinophils # (A) 0.1 k/uL (0-0.7); Eosinophils % (A) 2 %; HCT 43.4 % (39.0-53.0); HDW 2.12; HGB 14.4 gm/dL (13.0-17.5); Luc # (Auto) 0.14; Luc % (Auto) 2; Lymphocytes # (A) 1.6 k/uL (1.0-4.8); Lymphocytes % (A) 25 %; MCH 31.4 pg (25.0-35.0); MCHC 33.3 g/dL (31.0-37.0); MCV 94.4 fL (80.0-100.0); Mean Platelet Volume 7.5; Monocytes # (A) 0.5 k/uL (0-1.0); Monocytes % (A) 8 %; Neutrophils % (A) 62 %; RBC 4.59 m/uL (4.30-5.90); RDW 12.1 % (11.5-15.5); WBC 6.4 k/uL (3.8-10.6); WBC (Perox) 6.33
[2017-05-18 13:34] LABS: ALT 27 U/L (21-72); AST 16 U/L (17-59); Alkaline Phosphatase 63 U/L (38-126); Anion Gap 11 mmol/L; Blood Urea Nitrogen 12 mg/dL (9-20); Calcium 9.3 mg/dL (8.4-10.2); Carbon Dioxide 28 mmol/L (22-30); Chloride 102 mmol/L (98-107); Glucose 92 mg/dL (74-99); Non-African American GFR(MDRD) >60 (>60 ml/min/1.73 sqM); Potassium 3.6 mmol/L (3.5-5.1); Sodium 141 mmol/L (137-145); Total Bilirubin 0.5 mg/dL (0.2-1.3); Total Protein 7.6 g/dL (6.3-8.2)
[2017-05-18] MEDS ORDERED: ONDANSETRON 4 MG ODT STARTER PACK 2 TAB BTL PO STA (14:29)
[2017-05-18 14:36] VITALS: BP 119/62; PULSE 88; RESP 16; TEMP 97
== END 2017-05-18 14:37 | disposition home or self-care (01) ==
LOC: EC 12:19
DX: K52.9 Noninfective gastroenteritis and colitis, unspecified (principal); F17.200 Nicotine dependence, unspecified, uncomplicated; Z88.8 Allergy status to other drugs, medicaments and biological substances; Z91.030 Bee allergy status
CPT/HCPCS: 36415; 80053; 85025; 99284; 96374; 96361; J2405; S0119

== ENCOUNTER 2017-08-29 14:24 | Emergency (ER) | payer OTHER ==
[2017-08-29 14:29] VITALS: BP 127/88; PULSE 96; RESP 18; TEMP 98.3
[2017-08-29] MEDS ORDERED: FAMOTIDINE 20 MG TAB PO STA (14:41)
[2017-08-29] MEDS ORDERED: diphenhydrAMINE 25 MG CAP PO STA (14:41)
[2017-08-29] MEDS ORDERED: predniSONE 50 MG TAB PO STA (14:41)
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
== END 2017-08-29 15:06 | disposition home or self-care (01) ==
LOC: EC 14:24
DX: T78.40XA Allergy, unspecified, initial encounter (principal); F17.200 Nicotine dependence, unspecified, uncomplicated; Z91.030 Bee allergy status; Z88.8 Allergy status to other drugs, medicaments and biological substances
CPT/HCPCS: 99283; J7512

== ENCOUNTER 2017-09-07 23:26 | Emergency (ER) | payer OTHER ==
[2017-09-07 23:30] VITALS: RESP 16; TEMP 98.9
[2017-09-07] MEDS ORDERED: METOCLOPRAMIDE 5 MG/ML 2 ML VIAL IVP STA (23:57)
[2017-09-07] MEDS ORDERED: SUMAtriptan SUCCINATE 6 MG/0.5 ML VIAL SQ STA (23:57)
[2017-09-07] MEDS ORDERED: diphenhydrAMINE 50 MG/ML 1 ML VIAL IVP STA (23:57)
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
[2017-09-08 01:09] VITALS: BP 117/59; PULSE 90
== END 2017-09-08 01:08 | disposition home or self-care (01) ==
LOC: EC 23:26
DX: G43.909 Migraine, unspecified, not intractable, without status migrainosus (principal); F17.200 Nicotine dependence, unspecified, uncomplicated; Z88.8 Allergy status to other drugs, medicaments and biological substances; Z91.030 Bee allergy status
CPT/HCPCS: 99283; 96374; 96375; 96372; J3030; J1200; J2765

== ENCOUNTER 2017-09-12 15:38 | Emergency (ER) | payer OTHER ==
[2017-09-12 15:49] VITALS: TEMP 98.1
[2017-09-12 16:33] LABS: Basophils % (A) 1 %; Eosinophils # (A) 0.2 k/uL (0-0.7); Eosinophils % (A) 2 %; HCT 44.9 % (39.0-53.0); HGB 15.4 gm/dL (13.0-17.5); Lymphocytes # (A) 2.4 k/uL (1.0-4.8); Lymphocytes % (A) 35 %; MCH 31.1 pg (25.0-35.0); MCHC 34.4 g/dL (31.0-37.0); MCV 90.4 fL (80.0-100.0); Mean Platelet Volume 7.5; Monocytes # (A) 0.6 k/uL (0-1.0); Monocytes % (A) 8 %; Neutrophils # (A) 3.5 k/uL (1.3-7.7); Neutrophils % (A) 51 %; Platelet Count 265 k/uL (150-450); RBC 4.97 m/uL (4.30-5.90); RDW 12.5 % (11.5-15.5); WBC 6.9 k/uL (3.8-10.6)
[2017-09-12 16:42] LABS: ALT 25 U/L (21-72); AST 21 U/L (17-59); Albumin 4.8 g/dL (3.5-5.0); Alkaline Phosphatase 81 U/L (38-126); Amylase 60 U/L (30-110); Anion Gap 13 mmol/L; Blood Urea Nitrogen 15 mg/dL (9-20); Calcium 9.6 mg/dL (8.4-10.2); Carbon Dioxide 25 mmol/L (22-30); Chloride 105 mmol/L (98-107); Glucose 88 mg/dL (74-99); Lipase 146 U/L (23-300); Potassium 3.8 mmol/L (3.5-5.1); Sodium 143 mmol/L (137-145); Total Bilirubin 0.7 mg/dL (0.2-1.3)
[2017-09-12 16:51] LABS: INR 1.1 (<1.2); Prothrombin Time 10.4 sec (9.0-12.0)
[2017-09-12 16:55] LABS: Creatine Kinase 154 U/L (55-170)
[2017-09-12 16:56] VITALS: RESP 18
[2017-09-12 17:09] LABS: Creatine Kinase MB 0.7 ng/mL (0.0-2.4); Troponin I <0.012 ng/mL (0.000-0.034)
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
[2017-09-12] MEDS ORDERED: cloNIDine 0.1 MG/24HR PATCH 1 PATCH PATCH TRANSDERM STA (17:21)
--- NOTE | 2017-09-12 17:34 | XR ---
EXAMINATION: XR chest 2V DATE AND TIME: 09/12/2017 5:11 PM ORDERING PROVIDER: Alexis Carrera CLINICAL INDICATION: Chest Pain with tightness, nausea TECHNIQUE: PA and lateral COMPARISON: 03/03/2017 DESCRIPTION: The lungs are clear. The pleural spaces are negative. The cardiac silhouette is not enlarged. The mediastinal and pleural silhouettes are unremarkable. The skeletal structures are intact without focal findings. The soft tissues are unremarkable. IMPRESSION: NO ACUTE PROCESS.
[2017-09-12 17:42] VITALS: BP 144/80; PULSE 78
== END 2017-09-12 17:52 | disposition home or self-care (01) ==
LOC: EC 15:38
DX: F19.939 Other psychoactive substance use, unspecified with withdrawal, unspecified (principal); F14.90 Cocaine use, unspecified, uncomplicated; F10.239 Alcohol dependence with withdrawal, unspecified; R07.9 Chest pain, unspecified; F17.200 Nicotine dependence, unspecified, uncomplicated; Z79.899 Other long term (current) drug therapy; Z88.8 Allergy status to other drugs, medicaments and biological substances; Z91.030 Bee allergy status
CPT/HCPCS: 36415; 71046; 80053; 82150; 82550; 82553; 83690; 83735; 84484; 85025; 85610; 85730; 93005; 99285

== ENCOUNTER 2017-11-24 08:22 | Emergency (ER) | payer OTHER ==
[2017-11-24 08:36] VITALS: BP 156/90; RESP 16; TEMP 97.8
[2017-11-24] MEDS ORDERED: ALBUTEROL NEBULIZED 2.5 MG/3 ML INHALATION STA (08:41)
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
[2017-11-24 09:01] VITALS: PULSE 72
--- NOTE | 2017-11-24 09:17 | XR ---
EXAMINATION TYPE: XR chest 1V portable DATE OF EXAM: 11/24/2017 COMPARISON: 09/12/2017 HISTORY: Chest pain TECHNIQUE: Single frontal view of the chest is obtained. FINDINGS: There is no focal air space opacity, pleural effusion, or pneumothorax seen. The cardiac silhouette size is within normal limits. The osseous structures are intact. IMPRESSION: No acute cardiopulmonary process, unchanged from the prior.
== END 2017-11-24 09:41 | disposition home or self-care (01) ==
LOC: EC 08:22
DX: J06.9 Acute upper respiratory infection, unspecified (principal); J45.909 Unspecified asthma, uncomplicated; F17.200 Nicotine dependence, unspecified, uncomplicated; Z88.8 Allergy status to other drugs, medicaments and biological substances; Z91.030 Bee allergy status
CPT/HCPCS: 71045; 94640; 99284

== ENCOUNTER 2017-12-05 13:10 | Inpatient (IN) | payer MEDICAID, OTHER ==
[2017-12-05] MEDS ORDERED: DIPH,PERTUS(ACELL)TETVAC-LF 0.5 ML VIAL IM ONE (13:32)
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
[2017-12-05 13:58] LABS: Amphetamine Screen,Urine Not Detected (NotDetected); Barbiturate Screen,Urine Not Detected (NotDetected); Benzodiazepines Screen,Urine Not Detected (NotDetected); Cocaine Screen,Urine Not Detected (NotDetected); Methadone Screen, Urine Not Detected (NotDetected); Opiate Screen,Urine Not Detected (NotDetected); Oxycodone Screen, Urine Not Detected (NotDetected); Phencyclidine Screen,Urine Not Detected (NotDetected); Tricyclic Antidepressant,Urine Not Detected (NotDetected); Urn Cannabinoid Scrn Detected (NotDetected)
[2017-12-05] MEDS ORDERED: ACETAMINOPHEN TAB 325 MG TAB PO PRN (17:59)
[2017-12-05] MEDS ORDERED: ZIPRASIDONE 20 MG VIAL IM PRN (17:59)
[2017-12-05] MEDS ORDERED: MAGNESIUM HYDROXIDE 2,400 MG/10 ML CUP PO PRN (17:59)
[2017-12-05] MEDS ORDERED: MAG HYDROX/AL HYDROX/SIMETH 30 ML CUP PO PRN (17:59)
[2017-12-05] MEDS ORDERED: ASPIRIN-ACET-CAFF 250-250-65MG 1 EACH TAB PO PRN (18:01)
[2017-12-05 18:18] LABS: Appearance,Urine Clear (Clear); Bilirubin,Urine Negative (Negative); Blood,Urine Negative (Negative); Color,Urine Yellow; Glucose,Urine (UA) Negative (Negative); Ketones,Urine Negative (Negative); Leukocyte Esterase,Urine Negative (Negative); Nitrite,Urine Negative (Negative); PH, Urine 8.5 (5.0-8.0); Protein,Urine Negative (Negative); Specific Gravity,Urine 1.018 (1.001-1.035); Urobilinogen,Urine <2.0 mg/dL (<2.0)
[2017-12-05 19:11] VITALS: BMI 19.5
[2017-12-05] MEDS ORDERED: hydrOXYzine PAMOATE 25 MG CAP PO STA (21:54)
[2017-12-06] MEDS ORDERED: IBUPROFEN 600 MG TAB PO PRN (08:22)
[2017-12-06] MEDS: NICOTINE 21MG/24HR PATCH TRANSDERM SCH (08:49)
[2017-12-06 11:23] LABS: Basophils % (A) 0 %; Eosinophils # (A) 0.2 k/uL (0-0.7); Eosinophils % (A) 4 %; HCT 45.4 % (39.0-53.0); HGB 15.3 gm/dL (13.0-17.5); Lymphocytes # (A) 1.9 k/uL (1.0-4.8); Lymphocytes % (A) 36 %; MCH 31.8 pg (25.0-35.0); MCHC 33.8 g/dL (31.0-37.0); MCV 93.9 fL (80.0-100.0); Monocytes # (A) 0.5 k/uL (0-1.0); Monocytes % (A) 9 %; Neutrophils # (A) 2.5 k/uL (1.3-7.7); Neutrophils % (A) 47 %; Platelet Count 264 k/uL (150-450); RBC 4.83 m/uL (4.30-5.90); RDW 12.9 % (11.5-15.5); WBC 5.3 k/uL (3.8-10.6)
[2017-12-06 11:30] LABS: ALT 27 U/L (21-72); AST 16 U/L (17-59); Albumin 4.8 g/dL (3.5-5.0); Alkaline Phosphatase 55 U/L (38-126); Anion Gap 14 mmol/L; Blood Urea Nitrogen 13 mg/dL (9-20); Calcium 9.5 mg/dL (8.4-10.2); Carbon Dioxide 24 mmol/L (22-30); Chloride 104 mmol/L (98-107); Glucose 87 mg/dL (74-99); Potassium 4.4 mmol/L (3.5-5.1); Sodium 142 mmol/L (137-145); Total Bilirubin 0.7 mg/dL (0.2-1.3); Total Protein 7.6 g/dL (6.3-8.2)
[2017-12-06] MEDS: SUMAtriptan SUCCINATE 50 MG TAB PO PRN (12:47)
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
[2017-12-06] MEDS ORDERED: hydrOXYzine PAMOATE 25 MG CAP PO PRN (15:44)
[2017-12-06] MEDS ORDERED: QUEtiapine 50 MG TAB PO PRN (15:48)
[2017-12-06] MEDS ORDERED: QUEtiapine 200 MG TAB PO SCH (21:00)
[2017-12-07] MEDS: NICOTINE 21MG/24HR PATCH TRANSDERM SCH (08:48)
[2017-12-07] MEDS: hydrOXYzine PAMOATE 25 MG CAP PO PRN (12:39)
--- NOTE | 2017-12-07 13:58 | P.PN ---
Subjective Progress Note Date: 12/07/17 Principal diagnosis: Unspecified depressive disorder, cannabis use disorder, methamphetamine use disorder, opiate use disorder, antisocial personality disorder I reviewed the medical record, interviewed the patient and discuss his treatment and treatment plan during team meeting. He told the manager social responsibility that he will not return to a long-term and plans to contact family for assistance after his discharge. He complained about leg pain and gave a dramatic description to emphasize the severity of the pain. He appeared to accept my explanation that I would not prescribe opiate pain medication unless recommended by the medical practice manager. He complained about the behavior of a patient on the unit. He complained that she "is upsetting me" and requested "something other than Seroquel" to "calm me down". He becamse acutely distressed when I asked him if he knew that [facility] plans to submit a petition to probate court for substance abuse treatment. He repeatedly denied that he has a substance use problem. He smokes marijuana to treat his chronic pain and takes hallucinogenic 's because he is "part ". He denied the need for substance abuse treatment and expressed frustration with [facility]. We discussed treatment options for his complaints of subjective distress and agreed to discontinue when necessary Seroquel and began a trial of Vistaril 50 mg every 8 hours when necessary. Objective - Vital Signs Vital signs: Vital Signs Temp 97.4 F L 12/07/17 06:17 Pulse 47 L 12/07/17 06:17 Resp 16 12/07/17 06:17 BP 95/56 12/07/17 06:17 Pulse Ox 98 12/05/17 18:55 Intake & Output 12/06/17 12/07/17 12/07/17 18:59 06:59 18:59 Weight 63.758 kg - Psychiatric Psychiatric Comment(s): He presented as a thin casually groomed young male who was pleasant on approach. He made eye contact and attended to the interview. He had no distinguishing features or prominent physical abnormalities. He had a blunted facial expression. He is alert and oriented to person, place and time. He showed no abnormality of psychomotor activity and no abnormal movements. His speech was spontaneous and the rate, rhythm and volume were consistent with his affect. He was angry and labile. He denied current suicidal ideation or wishes. He denied homicidal ideation. He denied feeling hopeless, helpless or worthless. He ruminated about his pain, need for narcotic pain medications and feelings that he is misjudged and misunderstood. He did not express phobias, ideas reference, paranoid ideation or delusional thoughts. His thinking was abstract and associations were coherent, logical and goal directed. He did not express clang associations, perseverations, neologisms or blocking. He denied hallucinations and did not appear to be responding to internal stimuli - Labs CBC & Chem 7: 12/06/17 11:00 12/06/17 11:00 Assessment and Plan (1) Depression Current Visit: No Status: Acute Priority: Medium Code(s): F32.9 - MAJOR DEPRESSIVE DISORDER, SINGLE EPISODE, UNSPECIFIED SNOMED Code(s): 46395512 (2) Suicidal ideation Current Visit: No Status: Resolved Priority: Low Code(s): R45.851 - SUICIDAL IDEATIONS SNOMED Code(s): 4847254 (3) Cannabis use disorder, mild, abuse Current Visit: Yes Status: Chronic Priority: Medium Code(s): F12.10 - CANNABIS ABUSE, UNCOMPLICATED SNOMED Code(s): 81697093 Plan: Continue inpatient psychiatric hospitalization due to continued irritability and mood lability. Increase Seroquel to 400 mg at bedtime. Discontinue Seroquel 50 mg twice a day when necessary for anxiety or agitation. Begin Vistaril 50 milligrams by mouth every 8 hours when necessary for anxiety. Avoid use of narcotic medications. Encourage continued participation in therapeutic groups and activities. Consider discharge 12/08/2017 with follow- up through [facility]. Evaluate clinical status response to treatment on a daily basis.
[2017-12-07] MEDS ORDERED: QUEtiapine 400 MG TAB PO SCH (21:00)
[2017-12-08 06:43] VITALS: BP 105/65; PULSE 52; RESP 14; TEMP 97.3
[2017-12-08] MEDS: SUMAtriptan SUCCINATE 50 MG TAB PO PRN (07:05)
[2017-12-08] MEDS: NICOTINE 21MG/24HR PATCH TRANSDERM SCH (08:37)
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
[2017-12-08] MEDS: hydrOXYzine PAMOATE 25 MG CAP PO PRN (11:57)
[2017-12-08] MEDS ORDERED: QUEtiapine 200 MG TAB PO SCH (21:00)
== END 2017-12-08 12:10 | disposition home or self-care (01) | DRG 881 ==
LOC: EC 13:10 → 3MHU 17:35
PROVIDERS: ADMIT Psychiatry & Neurology Psychiatry; ATTEND Psychiatry & Neurology Psychiatry
DX: F32.9 Major depressive disorder, single episode, unspecified (principal); R45.851 Suicidal ideations; Q21.1 Atrial septal defect; F11.10 Opioid abuse, uncomplicated; F12.10 Cannabis abuse, uncomplicated; F15.10 Other stimulant abuse, uncomplicated; F17.200 Nicotine dependence, unspecified, uncomplicated; F43.10 Post-traumatic stress disorder, unspecified; F51.04 Psychophysiologic insomnia; F60.2 Antisocial personality disorder; F90.9 Attention-deficit hyperactivity disorder, unspecified type; G43.909 Migraine, unspecified, not intractable, without status migrainosus; G89.29 Other chronic pain; Z59.0 Homelessness; Z79.899 Other long term (current) drug therapy; Z81.8 Family history of other mental and behavioral disorders; Z83.3 Family history of diabetes mellitus; W34.00XS Accidental discharge from unspecified firearms or gun, sequela; Z79.82 Long term (current) use of aspirin; M79.605 Pain in left leg; K21.9 Gastro-esophageal reflux disease without esophagitis; Z56.0 Unemployment, unspecified; Z76.5 Malingerer [conscious simulation]; G62.9 Polyneuropathy, unspecified; F41.9 Anxiety disorder, unspecified; Z88.8 Allergy status to other drugs, medicaments and biological substances; Z91.030 Bee allergy status; Z71.6 Tobacco abuse counseling
CPT/HCPCS: 80053; 80306; 81003; 82075; 84443; 85025; 99285

== ENCOUNTER 2018-01-03 14:06 | Emergency (ER) | payer OTHER ==
[2018-01-03 14:28] VITALS: RESP 18; TEMP 98.2
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
--- NOTE | 2018-01-03 15:18 | CT ---
EXAMINATION TYPE: CT brain wo con DATE OF EXAM: 01/03/2018 COMPARISON: 04/08/2016 HISTORY: [place] after fall with head injury x1 day ago CT DLP: 1043.[address] of the brain was performed. The ventricles, basal cisterns and sulci overlying the cerebral convexities demonstrate a normal appe arance. There is no evidence for intracranial hemorrhage or sulcal effacement. No mass effects are seen. Osseous calvarium is intact. Chronic sinusitis changes. If symptoms persist consider MRI as clinically warranted. IMPRESSION: 1. No acute intracranial process is seen at this time.
[2018-01-03 15:34] VITALS: BP 126/74; PULSE 84
== END 2018-01-03 15:38 | disposition home or self-care (01) ==
LOC: EC 14:06
DX: S09.90XA Unspecified injury of head, initial encounter (principal); R11.10 Vomiting, unspecified; F17.200 Nicotine dependence, unspecified, uncomplicated; Z79.899 Other long term (current) drug therapy; Z88.8 Allergy status to other drugs, medicaments and biological substances; Z91.030 Bee allergy status; W01.190A Fall on same level from slipping, tripping and stumbling with subsequent striking against furniture, initial encounter; Y92.000 Kitchen of unspecified non-institutional (private) residence as the place of occurrence of the external cause
CPT/HCPCS: 70450; 99283

== ENCOUNTER 2018-01-19 10:55 | Emergency (ER) | payer OTHER ==
[2018-01-19 11:02] VITALS: BP 136/90; PULSE 71; RESP 16; TEMP 98.2
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
--- NOTE | 2018-01-19 11:39 | XR ---
EXAMINATION TYPE: XR chest 2V DATE OF EXAM: 01/19/2018 COMPARISON: NONE HISTORY: Chest pain TECHNIQUE: Frontal and lateral views of the chest are obtained. FINDINGS: There is no focal air space opacity. No evidence for pneumothorax. No pleural effusion. The cardiac silhouette size is within normal limits. The osseous structures are grossly intact. IMPRESSION: 1. No acute cardiopulmonary process.
== END 2018-01-19 11:57 | disposition home or self-care (01) ==
LOC: EC 10:55
DX: J20.9 Acute bronchitis, unspecified (principal); F17.200 Nicotine dependence, unspecified, uncomplicated; Z79.899 Other long term (current) drug therapy; Z88.8 Allergy status to other drugs, medicaments and biological substances; Z91.030 Bee allergy status
CPT/HCPCS: 71046; 99283

== ENCOUNTER 2018-11-19 22:07 | Emergency (ER) | payer OTHER ==
[2018-11-19 22:11] VITALS: RESP 18
[2018-11-19] MEDS ORDERED: SODIUM CHLORIDE 0.9% 1,000 ML IV STA (23:07)
[2018-11-19] MEDS ORDERED: KETOROLAC 30 MG/ML 1 ML VIAL IVP STA (23:07)
[2018-11-19] MEDS ORDERED: ONDANSETRON 4 MG/2 ML VIAL IVP STA (23:07)
[2018-11-19] MEDS ORDERED: SODIUM CHLORIDE 0.9% 500 ML 500 ML IV STA (23:07)
[2018-11-19 23:39] LABS: Basophils % (A) 0 %; Eosinophils # (A) 0.3 k/uL (0-0.7); Eosinophils % (A) 4 %; HCT 42.3 % (39.0-53.0); HGB 14.3 gm/dL (13.0-17.5); Lymphocytes # (A) 2.3 k/uL (1.0-4.8); Lymphocytes % (A) 34 %; MCH 31.4 pg (25.0-35.0); MCHC 33.9 g/dL (31.0-37.0); MCV 92.7 fL (80.0-100.0); Mean Platelet Volume 7.7; Monocytes # (A) 0.5 k/uL (0-1.0); Monocytes % (A) 7 %; Neutrophils # (A) 3.6 k/uL (1.3-7.7); Neutrophils % (A) 53 %; Platelet Count 230 k/uL (150-450); RBC 4.56 m/uL (4.30-5.90); RDW 13.6 % (11.5-15.5); WBC 6.7 k/uL (3.8-10.6)
[2018-11-19 23:55] LABS: ALT 17 U/L (21-72); AST 27 U/L (17-59); Albumin 4.4 g/dL (3.5-5.0); Alkaline Phosphatase 52 U/L (38-126); Amylase 101 U/L (30-110); Anion Gap 11 mmol/L; Blood Urea Nitrogen 8 mg/dL (9-20); Calcium 9.2 mg/dL (8.4-10.2); Carbon Dioxide 21 mmol/L (22-30); Chloride 107 mmol/L (98-107); Glucose 85 mg/dL (74-99); Lipase 751 U/L (23-300); Potassium 4.2 mmol/L (3.5-5.1); Sodium 139 mmol/L (137-145); Total Bilirubin 0.7 mg/dL (0.2-1.3); Total Protein 6.9 g/dL (6.3-8.2)
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
[2018-11-20 01:19] LABS: Amphetamine Screen,Urine Not Detected (NotDetected); Barbiturate Screen,Urine Detected (NotDetected); Benzodiazepines Screen,Urine Not Detected (NotDetected); Cocaine Screen,Urine Not Detected (NotDetected); Methadone Screen, Urine Not Detected (NotDetected); Opiate Screen,Urine Not Detected (NotDetected); Oxycodone Screen, Urine Not Detected (NotDetected); Phencyclidine Screen,Urine Not Detected (NotDetected); Tricyclic Antidepressant,Urine Not Detected (NotDetected); Urn Cannabinoid Scrn Detected (NotDetected)
[2018-11-20 01:20] LABS: Appearance,Urine Clear (Clear); Bilirubin,Urine Negative (Negative); Blood,Urine Negative (Negative); Color,Urine Yellow; Glucose,Urine (UA) Negative (Negative); Ketones,Urine Trace (Negative); PH, Urine 6.5 (5.0-8.0); Protein,Urine Negative (Negative); Specific Gravity,Urine 1.018 (1.001-1.035)
[2018-11-20 01:21] LABS: Leukocyte Esterase,Urine Negative (Negative); Nitrite,Urine Negative (Negative); Urobilinogen,Urine <2.0 mg/dL (<2.0)
[2018-11-20] MEDS ORDERED: IBUPROFEN 600 MG STARTER PACK 4 TAB BTL PO STA (02:10)
[2018-11-20 02:51] VITALS: BP 122/76; PULSE 73; TEMP 98.4
== END 2018-11-20 02:41 | disposition home or self-care (01) ==
LOC: EC 22:07
DX: B34.9 Viral infection, unspecified (principal); R00.1 Bradycardia, unspecified; R20.2 Paresthesia of skin; Z87.891 Personal history of nicotine dependence; Z88.8 Allergy status to other drugs, medicaments and biological substances; Z91.030 Bee allergy status; Z79.899 Other long term (current) drug therapy
CPT/HCPCS: 36415; 93005; 80053; 82150; 82550; 83690; 85025; 81003; 80306; 99284; 96374; 96375; 96361 ×2; J2405; J1885

== ENCOUNTER 2018-11-30 11:20 | Inpatient (IN) | payer MEDICAID, OTHER ==
[2018-11-30] MEDS ORDERED: SODIUM CHLORIDE 0.9% 1,000 ML IV STA (11:28)
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
[2018-11-30 11:59] LABS: Basophils % (A) 1 %; Eosinophils # (A) 0.2 k/uL (0-0.7); Eosinophils % (A) 4 %; HCT 40.6 % (39.0-53.0); HGB 13.4 gm/dL (13.0-17.5); Lymphocytes # (A) 1.9 k/uL (1.0-4.8); Lymphocytes % (A) 34 %; MCH 30.6 pg (25.0-35.0); MCHC 33.1 g/dL (31.0-37.0); MCV 92.4 fL (80.0-100.0); Mean Platelet Volume 7.2; Monocytes # (A) 0.4 k/uL (0-1.0); Monocytes % (A) 7 %; Neutrophils # (A) 2.9 k/uL (1.3-7.7); Neutrophils % (A) 52 %; Platelet Count 196 k/uL (150-450); RBC 4.39 m/uL (4.30-5.90); WBC 5.5 k/uL (3.8-10.6)
[2018-11-30 12:02] LABS: Appearance,Urine Clear (Clear); Bilirubin,Urine Negative (Negative); Blood,Urine Negative (Negative); Color,Urine Light Yellow; Glucose,Urine (UA) Negative (Negative); Ketones,Urine Negative (Negative); Leukocyte Esterase,Urine Negative (Negative); Nitrite,Urine Negative (Negative); PH, Urine 7.5 (5.0-8.0); Protein,Urine Negative (Negative); Specific Gravity,Urine 1.008 (1.001-1.035); Urobilinogen,Urine <2.0 mg/dL (<2.0)
[2018-11-30 12:13] LABS: Amphetamine Screen,Urine Not Detected (NotDetected); Barbiturate Screen,Urine Not Detected (NotDetected); Benzodiazepines Screen,Urine Detected (NotDetected); Cocaine Screen,Urine Not Detected (NotDetected); Methadone Screen, Urine Not Detected (NotDetected); Opiate Screen,Urine Not Detected (NotDetected); Oxycodone Screen, Urine Not Detected (NotDetected); Phencyclidine Screen,Urine Not Detected (NotDetected); Tricyclic Antidepressant,Urine Not Detected (NotDetected); Urn Cannabinoid Scrn Detected (NotDetected)
[2018-11-30 12:14] LABS: ALT 14 U/L (21-72); AST 16 U/L (17-59); Acetaminophen <10.0 ug/mL; Albumin 3.8 g/dL (3.5-5.0); Alcohol <10 mg/dL; Alkaline Phosphatase 46 U/L (38-126); Anion Gap 5 mmol/L; Blood Urea Nitrogen 13 mg/dL (9-20); Calcium 8.9 mg/dL (8.4-10.2); Carbon Dioxide 26 mmol/L (22-30); Chloride 109 mmol/L (98-107); Glucose 87 mg/dL (74-99); Potassium 4.3 mmol/L (3.5-5.1); Salicylate <1.0 mg/dL; Sodium 140 mmol/L (137-145); Total Bilirubin 0.5 mg/dL (0.2-1.3)
[2018-11-30] MEDS ORDERED: ZIPRASIDONE 20 MG VIAL IM PRN ×2 (17:38→18:31)
[2018-11-30] MEDS ORDERED: MAG HYDROX/AL HYDROX/SIMETH 30 ML CUP PO PRN ×2 (17:38→18:31)
[2018-11-30] MEDS ORDERED: NICOTINE 14MG/24HR PATCH TRANSDERM SCH (17:45)
[2018-11-30] MEDS ORDERED: MAGNESIUM HYDROXIDE 2,400 MG/10 ML CUP PO PRN (18:31)
[2018-11-30 18:58] VITALS: BMI 19.3
[2018-12-01 08:13] LABS: ALT 18 U/L (21-72); AST 20 U/L (17-59); Albumin 3.8 g/dL (3.5-5.0); Alkaline Phosphatase 50 U/L (38-126); Anion Gap 5 mmol/L; Blood Urea Nitrogen 15 mg/dL (9-20); Calcium 8.7 mg/dL (8.4-10.2); Carbon Dioxide 28 mmol/L (22-30); Chloride 108 mmol/L (98-107); Cholesterol 110 mg/dL (<200); Glucose 81 mg/dL (74-99); HDL Cholesterol 36 mg/dL (40-60); LDL Cholesterol,Calculated 59 mg/dL (0-99); Potassium 4.7 mmol/L (3.5-5.1); Sodium 141 mmol/L (137-145); Total Bilirubin 0.3 mg/dL (0.2-1.3); Triglycerides 76 mg/dL (<150)
[2018-12-01] MEDS: NICOTINE 14MG/24HR PATCH TRANSDERM SCH (08:51)
[2018-12-01] MEDS: OLANZapine 2.5 MG TAB PO SCH ×3 (11:34→21:55)
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
[2018-12-01] MEDS: IBUPROFEN 600 MG TAB PO PRN (14:20)
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
[2018-12-01 18:58] LABS: Hemoglobin A1C 5.6 % (4.0-6.0)
[2018-12-02] MEDS: NICOTINE 14MG/24HR PATCH TRANSDERM SCH (08:53)
[2018-12-02] MEDS: OLANZapine 2.5 MG TAB PO SCH ×2 (08:53→16:49)
[2018-12-02] MEDS: IBUPROFEN 600 MG TAB PO PRN ×2 (14:26→19:20)
[2018-12-02] MEDS: OLANZapine 5 MG TAB PO SCH (21:25)
--- NOTE | 2018-12-02 21:25 | PN ---
DATE OF SERVICE : 12/02/2018 PROGRESS NOTE CHIEF COMPLAINT: The patient was anxious and depressed. He had taken about 30 tablets of Klonopin 0.5 mg over a 12 hour. He was sedated. INTERVAL HISTORY: Patient has been doing fair. He had a quiet evening for the most part last night. He comes out in the day area. Sometimes he can get loud and intense. His mood fluctuates. He slept fairly well last night. Today he has been up. He attends groups and generally is appropriate in groups. When he is out in the milieu, he can tend to get into intense conversations where he is laughing and joking. He minimizes problems and issues that he has had including issues precipitating his hospitalization. He has not shown much insight in regards to the several hospitalizations he has had over the last 4 years. Sometimes he will have regressive behavior. At other times he can be fairly grandiose. His moods seem to reflect his thought process and he does have some ups and downs in moods. He tolerates his psychotropic medications. MENTAL STATUS: Patient gave fair eye contact. Psychomotor activity was restless. He answered questions appropriately. His thoughts were clear. It is noted that he continues to speak in a somewhat slow measured voice and continues to show some slurring. Whether or not this is related to his baseline speech pattern or whether this continues to be the affect of Klonopin over exposure remains to be seen. His affect was intense. His mood dysphoric. He seemed moderately distressed. He continues to show some disordered thinking and his cognition was clear. ASSESSMENT: I will continue the current diagnosis and treatment plan. I will increase Zyprexa to 2.5 mg twice a day, 5 mg at bedtime. I would look to titrate up further as appropriate. I discussed his medication and treatment planning. We will continue to focus on stabilization and discharge planning. MMODL / IJN: [id number] / CLAIRE
[2018-12-03] MEDS: NICOTINE 14MG/24HR PATCH TRANSDERM SCH (08:56)
[2018-12-03] MEDS ORDERED: OLANZapine 2.5 MG TAB PO SCH (09:00)
[2018-12-03] MEDS: NICOTINE 21MG/24HR PATCH TRANSDERM SCH (12:31)
[2018-12-03] MEDS: OLANZapine 2.5 MG TAB PO SCH (14:52)
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
[2018-12-03] MEDS: OLANZapine 5 MG TAB PO SCH (19:32)
[2018-12-03] MEDS: IBUPROFEN 600 MG TAB PO PRN (21:45)
[2018-12-04] MEDS: NICOTINE 21MG/24HR PATCH TRANSDERM SCH (09:27)
[2018-12-04] MEDS: OLANZapine 2.5 MG TAB PO SCH ×2 (09:27→14:30)
[2018-12-04] MEDS: IBUPROFEN 600 MG TAB PO PRN ×2 (09:28→14:31)
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
[2018-12-04] MEDS: OLANZapine 5 MG TAB PO SCH (20:02)
[2018-12-05 06:15] VITALS: TEMP 97.6
[2018-12-05] MEDS: OLANZapine 2.5 MG TAB PO SCH ×2 (08:12→13:36)
[2018-12-05] MEDS: NICOTINE 21MG/24HR PATCH TRANSDERM SCH (08:12)
--- NOTE | 2018-12-05 10:53 | P.PN ---
Progress Note - Text Interval history: The patient's found in group he follows me to an interview room. He indicates his mood is stabilizing. He states he realizes that he cannot take Klonopin again. Staff report that the patient has been cooperative in groups. I reviewed his psychiatric evaluation and subsequent progress notes. Medications were reviewed. He speaks at length about being prescribed numerous medications in the past. Mental status exam: The patient is a thin male appearing his stated age. He has adequate hygiene grooming. Eye contact is appropriate speech is fluent spontaneous nonpressured. He reports currently no suicidal or homicidal ideation intent or plan. It's possible that he does have some delusional thought content. Thought process can be circumstantial, linear at times. He demonstrates no verbal or physical aggressiveness. Insight and judgment limited. He is reporting no auditory or visual hallucinations. Plan: The patient will continue on the Zyprexa as written. We will monitor him for safety. I am now assuming his care and will observe his behavior over the next 24 hours. We'll consider discharging him as soon as tomorrow. Vital signs reviewed.
[2018-12-05] MEDS: IBUPROFEN 600 MG TAB PO PRN (21:57)
[2018-12-05] MEDS: OLANZapine 5 MG TAB PO SCH (21:57)
[2018-12-06 07:02] VITALS: BP 108/58; PULSE 53; RESP 16
[2018-12-06] MEDS: NICOTINE 21MG/24HR PATCH TRANSDERM SCH (09:34)
--- NOTE | 2018-12-06 09:34 | P.DS ---
Providers Date of admission: 11/30/18 17:32 Expected date of discharge: 12/06/18 Attending physician: Saran Talbert Consults: 11/30/18 18:31 Consult Physician Routine Consulting Provider: Castro Galvan Consult Reason/Comments: H&P FOR MENTAL HEALTH CONSULT Do you want consulting provider notified?: Yes Primary care physician: Castro Galvan - Discharge Diagnosis(es) (1) Depression Current Visit: Yes Status: Acute Priority: High (2) Cannabis use disorder, moderate, dependence Current Visit: Yes Status: Acute Priority: Medium Hospital Course: Brief summary of admission note: This patient is a 28-year-old male who was brought to the hospital by police. It was reported that he had overdosed with approximately 30 tablets of Klonopin over a 12 hour period. Once he was medically cleared he was admitted to the psychiatric unit. He has had other psychiatric admissions in the past and his diagnoses have included major depressive disorder bipolar disorder and substance use disorder. He had indicated that the Klonopin was recently prescribed to him by his primary care physician Dr. Galvan. On the Monday prior to his admission the patient had been feeling down. He reported that his girlfriend had been demonstrating some concerning behavior and he was troubled by this. He reports he started taking a few the Klonopin and as the day progressed he continued taking them. At some time during that day he had superficially cut his left anterior forearm. He reported he had no idea how he got to the hospital and did not remember taking all the pills. For full details please refer to the psychiatric evaluation note. Summary of hospital course: The patient was admitted to the mental health unit voluntarily. He was initially evaluated and treated by Dr. Melara. The patient was started on Zyprexa and the dosage was titrated during the course of the admission. The patient's has been participating in group activities he has reported a progressive improvement of symptoms while here. I assumed care of the patient starting yesterday. He states that he has no suicidal or homicidal ideation. He has been demonstrating an ability to meet his own activities of daily living. He was seen by his primary care physician while admitted to the mental health unit. He is demonstrated no agitated behavior. He indicates having no one available to participate in a support meeting. He plans to return to the same home where he rents a room. He states that it his plan to secure a vehicle and then permanently moved to [place] to be with his brother. He will reside in the area until then. Mental status exam: The patient is alert he is a thin male appearing his stated age. He is dressed in his own clothing hygiene grooming adequate. Speech is fluent spontaneous nonpressured. He is pleasant and cooperative throughout the interaction. He is reporting no suicidal or homicidal ideation intent or plan. His superficial laceration wounds are healing without sign of infection. He is reporting no auditory or visual hallucinations or any specific delusions. There is no observed evidence of psychosis. He does not appear hypomanic or manic. He remains oriented to person place and date. He demonstrates no verbal or physical aggressiveness he demonstrates no involuntary repetitive movements. Affect is euthymic and appropriately expressive. Insight and judgment grossly intact. Impressions 1. Depression unspecified, rule out major depressive disorder, rule out bipolar disorder, rule out ADHD, marijuana use disorder, history of alcohol use disorder in remission 2. Reported history of head injuries Plan: The patient will be discharged mental health unit today. He plans to reside to the same residence where he rents a room on by his uncle. He will continue on Zyprexa we will reduce the dose to 15 mg at bedtime. He is instructed to abstain from any use of alcohol marijuana or any illicit drugs. H e indicates he will likely not stop using marijuana. We discussed that use of substances can precipitate mood symptoms and elevate his safety risk. He does not wish to participate in inpatient chemical dependency treatment. Social work will arrange his outpatient mental health follow-up. At this time there is no imminent safety risk is appropriate for transition to outpatient care. He is instructed to return to the hospital with any acute safety concerns. Patient Condition at Discharge: Stable Plan - Discharge Summary Discharge Rx Participant: No New Discharge Prescriptions: New Nicotine 21Mg/24Hr Patch [Habitrol] 1 patch TRANSDERM DAILY #14 patch OLANZapine [ZyPREXA] 15 mg PO HS #30 tablet Discontinued clonazePAM [KlonoPIN] 0.5 mg PO TID PRN PRN Reason: Anxiety Butalb/APAP/Caff 50-325-40Mg [Fioricet 50-325-40] 1 tab PO DAILY PRN PRN Reason: Migraine Headache SUMAtriptan SUCCINATE [Imitrex] 100 mg PO DAILY PRN PRN Reason: Migraine Headache Discharge Medication List Nicotine 21Mg/24Hr Patch [Habitrol] 1 patch TRANSDERM DAILY #14 patch 12/06/18 [Rx] OLANZapine [ZyPREXA] 15 mg PO HS #30 tablet 12/06/18 [Rx] Follow up Appointment(s)/Referral(s): Castro Galvan MD [Primary Care Provider] - 1-2 days Patient Instructions/Handouts: Depression (DC), Suicide Prevention (DC) Activity/Diet/Wound Care/Special Instructions: Activity and diet as tolerated. Avoid the use of street drugs and alcohol. Take all medications as prescribed. When you are in need of refills on your medications please contact your medical provider and/or outpatient psychiatrist to have this done. Please go to scheduled outpatient appointment for aftercare treatment. If symptoms return or become worse, call the crisis line at and/or go to the nearest emergency room for evaluation.
[2018-12-06] MEDS: OLANZapine 2.5 MG TAB PO SCH (09:35)
== END 2018-12-06 11:29 | disposition home or self-care (01) | DRG 881 ==
LOC: EC 11:20 → 3MHU 17:32
PROVIDERS: ADMIT Psychiatry & Neurology Psychiatry; ATTEND Psychiatry & Neurology Psychiatry
DX: F32.9 Major depressive disorder, single episode, unspecified (principal); Q21.1 Atrial septal defect; T50.902A Poisoning by unspecified drugs, medicaments and biological substances, intentional self-harm, initial encounter; F10.21 Alcohol dependence, in remission; F12.23 Cannabis dependence with withdrawal; F43.10 Post-traumatic stress disorder, unspecified; F90.9 Attention-deficit hyperactivity disorder, unspecified type; J45.909 Unspecified asthma, uncomplicated; K21.9 Gastro-esophageal reflux disease without esophagitis; S81.809S Unspecified open wound, unspecified lower leg, sequela; Z87.820 Personal history of traumatic brain injury; S41.112A Laceration without foreign body of left upper arm, initial encounter; Z83.3 Family history of diabetes mellitus; Z87.891 Personal history of nicotine dependence; F14.10 Cocaine abuse, uncomplicated; F15.10 Other stimulant abuse, uncomplicated; G62.9 Polyneuropathy, unspecified; Z88.8 Allergy status to other drugs, medicaments and biological substances; Z91.030 Bee allergy status; Z81.8 Family history of other mental and behavioral disorders; Z71.51 Drug abuse counseling and surveillance of drug abuser; Z79.899 Other long term (current) drug therapy
CPT/HCPCS: 36415; 80053; 80061; 80306; 80320; 80329; 81003; 83036; 83520; 84443; 85025; 93005; 96365; 96366; 99285

== ENCOUNTER 2018-12-08 09:20 | Emergency (ER) | payer OTHER ==
[2018-12-08 09:35] VITALS: BP 153/86; PULSE 95; RESP 18; TEMP 98.5
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
--- NOTE | 2018-12-08 10:35 | XR ---
EXAMINATION TYPE: XR hand complete RT , 3 VIEWS DATE OF EXAM ORDERED: 12/08/2018 HISTORY: Pain. COMPARISON: None. FINDINGS: No fracture, dislocation or other acute osseous lesion is seen. IMPRESSION: NO ACUTE OSSEOUS LESION.
[2018-12-08 11:19] LABS: Amphetamine Screen,Urine Not Detected (NotDetected); Barbiturate Screen,Urine Detected (NotDetected); Benzodiazepines Screen,Urine Not Detected (NotDetected); Cocaine Screen,Urine Not Detected (NotDetected); Methadone Screen, Urine Not Detected (NotDetected); Opiate Screen,Urine Not Detected (NotDetected); Oxycodone Screen, Urine Not Detected (NotDetected); Phencyclidine Screen,Urine Not Detected (NotDetected); Tricyclic Antidepressant,Urine Not Detected (NotDetected); Urn Cannabinoid Scrn Detected (NotDetected)
[2018-12-08] MEDS ORDERED: OLANZapine 5 MG TAB PO STA (14:05)
[2018-12-08] MEDS ORDERED: OLANZapine 5 MG TAB PO SCH (14:15)
[2018-12-09] MEDS ORDERED: OLANZapine 5 MG TAB PO SCH (09:00)
== END 2018-12-08 14:24 | disposition home or self-care (01) ==
LOC: EC 09:20
DX: F31.30 Bipolar disorder, current episode depressed, mild or moderate severity, unspecified (principal); R45.851 Suicidal ideations; H55.00 Unspecified nystagmus; M79.89 Other specified soft tissue disorders; Z87.891 Personal history of nicotine dependence; Z88.8 Allergy status to other drugs, medicaments and biological substances; Z91.030 Bee allergy status; Z81.8 Family history of other mental and behavioral disorders
CPT/HCPCS: 80306; 82075; 99285

== ENCOUNTER 2019-04-18 02:56 | Inpatient (IN) | payer MEDICAID, OTHER ==
[2019-04-18] MEDS ORDERED: ALBUTEROL NEBULIZED 2.5 MG/3 ML INHALATION STA (03:32)
[2019-04-18] MEDS ORDERED: predniSONE 20 MG TAB PO STA (03:32)
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
[2019-04-18 05:22] LABS: Amphetamine Screen,Urine Not Detected (NotDetected); Barbiturate Screen,Urine Not Detected (NotDetected); Benzodiazepines Screen,Urine Not Detected (NotDetected); Cocaine Screen,Urine Not Detected (NotDetected); Methadone Screen, Urine Not Detected (NotDetected); Opiate Screen,Urine Not Detected (NotDetected); Oxycodone Screen, Urine Not Detected (NotDetected); Phencyclidine Screen,Urine Not Detected (NotDetected); Tricyclic Antidepressant,Urine Not Detected (NotDetected); Urn Cannabinoid Scrn Detected (NotDetected)
[2019-04-18] MEDS ORDERED: MAG HYDROX/AL HYDROX/SIMETH 30 ML CUP PO PRN (05:36)
[2019-04-18] MEDS ORDERED: ACETAMINOPHEN TAB 325 MG TAB PO PRN (05:36)
[2019-04-18] MEDS ORDERED: MAGNESIUM HYDROXIDE 2,400 MG/10 ML CUP PO PRN (05:36)
[2019-04-18] MEDS ORDERED: ZIPRASIDONE 20 MG VIAL IM PRN (05:36)
[2019-04-18 07:25] LABS: Appearance,Urine Cloudy (Clear); Bilirubin,Urine Negative (Negative); Blood,Urine Negative (Negative); Color,Urine Yellow; Glucose,Urine (UA) Negative (Negative); Ketones,Urine Trace (Negative); Leukocyte Esterase,Urine Negative (Negative); Mucus,Urine Rare /hpf; Nitrite,Urine Negative (Negative); Protein,Urine Negative (Negative); RBC,Urine 1 /hpf (0-5); Specific Gravity,Urine 1.027 (1.001-1.035); Uric Acid Crystals,Urine Occasional /hpf; Urobilinogen,Urine <2.0 mg/dL (<2.0); WBC,Urine 1 /hpf (0-5)
[2019-04-18] MEDS: NICOTINE 14MG/24HR PATCH TRANSDERM SCH ×2 (08:49→15:37)
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
[2019-04-18] MEDS ORDERED: SUMAtriptan SUCCINATE 25 MG TAB PO PRN (12:28)
[2019-04-18] MEDS: guaiFENesin SYRUP 100MG/5ML 200 MG/10 ML CUP PO PRN (13:55)
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
--- NOTE | 2019-04-18 14:18 | XR ---
EXAMINATION TYPE: XR chest 2V DATE OF EXAM: 04/18/2019 COMPARISON: Chest x-ray January 19, 2018 HISTORY: Productive cough. TECHNIQUE: Frontal and lateral views of the chest are obtained. FINDINGS: There is no focal air space opacity, pleural effusion, or pneumothorax seen. The cardiac silhouette size is within normal limits. The osseous structures are intact. IMPRESSION: No suspicious acute infiltrate.
[2019-04-18] MEDS: ALBUTEROL NEBULIZED 2.5 MG/3 ML INHALATION PRN (20:35)
[2019-04-18] MEDS ORDERED: OLANZapine 5 MG TAB PO SCH (21:00)
[2019-04-19] MEDS: NICOTINE 14MG/24HR PATCH TRANSDERM SCH ×2 (08:46→11:14)
[2019-04-19 09:35] LABS: ALT 21 U/L (21-72); AST 24 U/L (17-59); African American GFR (CKD) >90 (>60 ml/min/1.73 sqM); Albumin 4.6 g/dL (3.5-5.0); Alkaline Phosphatase 52 U/L (38-126); Anion Gap 9 mmol/L; Bilirubin, Delta 0.1 mg/dL (0.0-0.2); Bilirubin,Unconjugated 0.8 mg/dL (0.0-1.1); Blood Urea Nitrogen 18 mg/dL (9-20); Calcium 9.3 mg/dL (8.4-10.2); Carbon Dioxide 29 mmol/L (22-30); Chloride 101 mmol/L (98-107); Cholesterol 153 mg/dL (<200); Glucose 129 mg/dL (74-99); HDL Cholesterol 53 mg/dL (40-60); LDL Cholesterol,Calculated 81 mg/dL (0-99); Non-African American GFR(CKD) >90 (>60 ml/min/1.73 sqM); Potassium 4.3 mmol/L (3.5-5.1); Sodium 139 mmol/L (137-145); Total Bilirubin 0.9 mg/dL (0.2-1.3); Total Protein 7.4 g/dL (6.3-8.2); Triglycerides 97 mg/dL (<150)
[2019-04-19 09:36] LABS: Basophils # (A) 0.1 k/uL (0-0.2); Basophils % (A) 1 %; Eosinophils # (A) 0.2 k/uL (0-0.7); Eosinophils % (A) 5 %; HCT 46.2 % (39.0-53.0); HGB 15.6 gm/dL (13.0-17.5); Lymphocytes # (A) 1.9 k/uL (1.0-4.8); Lymphocytes % (A) 44 %; MCH 32.5 pg (25.0-35.0); MCHC 33.6 g/dL (31.0-37.0); MCV 96.7 fL (80.0-100.0); Mean Platelet Volume 6.4; Monocytes # (A) 0.4 k/uL (0-1.0); Monocytes % (A) 9 %; Neutrophils # (A) 1.6 k/uL (1.3-7.7); Neutrophils % (A) 37 %; Platelet Count 244 k/uL (150-450); RBC 4.78 m/uL (4.30-5.90); RDW 12.3 % (11.5-15.5); WBC 4.4 k/uL (3.8-10.6)
[2019-04-19] MEDS ORDERED: SUMAtriptan SUCCINATE 25 MG TAB PO STA (11:03)
[2019-04-19] MEDS: LORazepam 1 MG TAB PO PRN ×2 (11:14→20:39)
--- NOTE | 2019-04-19 11:31 | P.PN ---
Progress Note - Text Progress Note Date: 04/19/19 Interval History Patient was seen wandering the hallways and was agreeable bilingual speech language pathologist in the office. Patient states that he is "pissed off" today and feels very anxious as he missed his court date after being subpoenaed. He states that he doesn't know if he is in trouble or not and has been thinking about it all night. He states that he tried to call his dad yesterday and his dad was not being very supportive for him until he got upset. Patient also claims that he spoke with his fiance who has gone back with her ex- which is also making him upset. He claims that the medications did help a little bit with his irritability and mood. He states that he did not sleep very well last night. He has fair energy and fair appetite. At this time patient denies any suicidal or homical ideations, intent or plan. Patient denies any auditory, visual hallucinations and denies any paranoia or delusions. Patient denies any side effects from the medications and has been compliant with meds. Mental Status Exam: General Appearance: Patient appears to be stated age is alert, irritable. Patient has poor hygiene and poor grooming and has poor eye contact. Behavior: Patient is seated without any agitated behavior. Speech: Patient's speech is fluent and nonpressured. Mood/Affect: Patient reports their mood is depressed, affect is congruent and constricted. Suicidality/Homicidality: Patient denies having any suicidal or homicidal ideation intent or plan. Perceptions: Patient denies any auditory or visual hallucinations. Though content/process: There is no evidence of any delusional thought content and thought process is linear and goal-directed. preoccupied with court and his fiance. Memory and concentration: AOX3, grossly intact for the purposes of this session Judgment and insight: Poor/superficial, improving mildly Assessment Depressiveisorder unspecified, rule out bipolar depression Cannabis use disorder Methamphetamines/stimulant abuse Alcohol use disorder Nicotine dependence Plan: -Patient continues to meet criteria for inpatient psychiatric admission for sytom stabilization and safety. Patient has signed adult vountary form an medication consent and was placed in kristin's chart. -Medications: will increase Zyprexa to 7.[address] mood [address] abilization/insomnia. -When necessary Geodon and Ativan for agitation/aggression. -thiamine, MVM for etoh use -Increased Imitrex to twice a day dosing for migraines. -Chest x-ray done on 04/18/2019 revealed no acute infiltrates. -NRT - nicotine patch -SW on board for discharge planning. We'll attempt to offer patient substance use rehab prior to discharge.
[2019-04-19] MEDS: ALBUTEROL NEBULIZED 2.5 MG/3 ML INHALATION PRN ×2 (12:14→20:51)
[2019-04-19 20:22] LABS: Hemoglobin A1C 5.3 % (4.0-6.0)
[2019-04-19] MEDS: OLANZapine 2.5 MG TAB PO SCH (20:39)
[2019-04-19] MEDS: guaiFENesin SYRUP 100MG/5ML 200 MG/10 ML CUP PO PRN (20:41)
[2019-04-20] MEDS: NICOTINE 14MG/24HR PATCH TRANSDERM SCH ×2 (09:46→12:36)
[2019-04-20] MEDS: LORazepam 1 MG TAB PO PRN ×2 (12:37→18:23)
[2019-04-20] MEDS: BENZOCAINE/MENTHOL LOZENG 1 EACH LOZENGE MUCOUS MEM PRN (18:24)
--- NOTE | 2019-04-20 19:31 | P.PN ---
Progress Note - Text Progress Note Date: 04/20/19 IDENTIFICATION DATA: 28-year-old admitted to MHU with worsening depression and suicidal ideations INTERVAL HISTORY: Patient was seen today. He reports feeling overwhelmed and stressed about his recent break up and every thing else in his life. He says the medication he is taking currently is not helping and still reports having mood swings and agitation stating if he had a chance he would be breaking and flipping tables. He reports poor appetite and sleep. He reports feeling paranoid and pissed of about his girlfriends ex-boyfriend. MENTAL STATUS EXAMINATION: 28-year old male, appears stated age in fair grooming and hygine. Is alert and oriented 4. Mood is reported as sad and affect is constricted. Speech and thought processes are linear and goal directed. thought content is negative for suicidal or homicidal ideation. Denies auditory and visual hallucinations. He has paranoid delusions towards his girlfriends ex-boyfriend . insight and judgment are improving Assessment Depressive disorder unspecified, rule out bipolar depression Cannabis use disorder Methamphetamines/stimulant abuse Alcohol use disorder, Nicotine dependence Plan Continue Zyprexa to 7.5 mg nightly for mood stabilization/insomnia. Imitrex for migraine headaches and depression He continues to meet criteria for inpatient hospitalization due to his mood instability
[2019-04-20] MEDS: OLANZapine 2.5 MG TAB PO SCH (20:50)
[2019-04-21] MEDS: ALBUTEROL NEBULIZED 2.5 MG/3 ML INHALATION PRN (09:02)
[2019-04-21] MEDS: NICOTINE 14MG/24HR PATCH TRANSDERM SCH (10:03)
[2019-04-21] MEDS: BENZOCAINE/MENTHOL LOZENG 1 EACH LOZENGE MUCOUS MEM PRN ×2 (12:56→21:22)
--- NOTE | 2019-04-21 13:28 | P.PN ---
Progress Note - Text Progress Note Date: 04/21/19 IDENTIFICATION DATA: 28-year-old admitted to MHU with worsening depression and suicidal ideations INTERVAL HISTORY: Patient was seen today. He reports having crying spells, racing thoughts, unstable moods, anger, agitation and easy irritability. He says he doesnt trust anyone due to his bitter experiences in his life. He reports poor sleep and inability to stay focused due to his anxiety, inability to organize his thoughts and confusion. Complaint with medications, no side effects reported. MENTAL STATUS EXAMINATION: 28-year old male, appears stated age in fair grooming and hygine. Is alert and oriented 4. Mood is reported as fucked up and affect is constricted. Speech and thought processes are tangential. thought content is negative for suicidal or homicidal ideation. Denies auditory and visual hallucinations. He has paranoid delusions towards every one . insight and judgment are limited Assessment Depressive disorder unspecified, rule out bipolar depression Cannabis use disorder Methamphetamines/stimulant abuse Alcohol use disorder, Nicotine dependence Plan Will increase the dose of Zyprexa to 10mg from 7.5 mg po qhs for mood stabilization/insomnia. Will start effexor 37.5mg po daily for depression and anxiety Imitrex for migraine headaches and depression He continues to meet criteria for inpatient hospitalization due to his mood instability
[2019-04-21] MEDS: VENLAFAXINE HCL ER 37.5 MG CAP PO SCH (17:20)
--- NOTE | 2019-04-21 17:39 | XR ---
EXAMINATION TYPE: XR chest 2V DATE OF EXAM: 04/21/2019 COMPARISON: 04/18/2019 HISTORY: Dr. Mary TECHNIQUE: Frontal and lateral views of the chest are obtained. FINDINGS: There is no focal air space opacity, pleural effusion, or pneumothorax seen. Pulmonary hy perinflation likely relates to good degree of inspiration given no flattening of the diaphragms nor i ncreased retrosternal airspace to suggest COPD. The cardiac silhouette size is within normal limits. The osseous structures are intact. IMPRESSION: No acute cardiopulmonary process.
[2019-04-21] MEDS: OLANZapine 10 MG TAB PO SCH (21:22)
[2019-04-21] MEDS: LORazepam 1 MG TAB PO PRN (21:22)
[2019-04-21] MEDS: SUMAtriptan SUCCINATE 25 MG TAB PO PRN (21:35)
[2019-04-22] MEDS: NICOTINE 14MG/24HR PATCH TRANSDERM SCH (08:59)
[2019-04-22] MEDS: VENLAFAXINE HCL ER 37.5 MG CAP PO SCH (08:59)
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
[2019-04-22] MEDS: LORazepam 1 MG TAB PO PRN (10:44)
[2019-04-22] MEDS: ALBUTEROL NEBULIZED 2.5 MG/3 ML INHALATION PRN ×2 (11:10→21:44)
[2019-04-22] MEDS: SUMAtriptan SUCCINATE 25 MG TAB PO PRN (15:43)
[2019-04-22] MEDS: OLANZapine 10 MG TAB PO SCH (20:59)
[2019-04-22] MEDS: guaiFENesin SYRUP 100MG/5ML 200 MG/10 ML CUP PO PRN (20:59)
[2019-04-22] MEDS: BENZOCAINE/MENTHOL LOZENG 1 EACH LOZENGE MUCOUS MEM PRN (21:01)
[2019-04-23] MEDS: LORazepam 1 MG TAB PO PRN ×3 (00:01→21:01)
[2019-04-23] MEDS: NICOTINE 14MG/24HR PATCH TRANSDERM SCH (07:58)
[2019-04-23] MEDS: VENLAFAXINE HCL ER 75 MG CAP PO SCH (07:58)
--- NOTE | 2019-04-23 11:05 | P.PN ---
Progress Note - Text Progress Note Date: 04/23/19 Interval History Patient was seen wandering the hallways and was agreeable speech language assistant in the office. Patient states that he is doing mildly better with regards his mood and his anxiety however states that he does have times where he feels very angry towards other people and continues to speak about his fiance leaving him and going with her . Patient also states that he did talk to his dad yesterday who is trying to help him with support. Patient appears to have improving insight into his condition and showing impulse control. We spoke about patient's housing options after patient was discharged and he states that he may go to [place] to be with his brother however needs bus ticket and also spoke about possibly going to rehab or living in a van. He claims that the medications did help a little bit with his irritability and mood along with his anxiety and requests to go up on his Zyprexa at this time. He states that he felt a "jolt" yesterday before going to bed and needed Ativan and then slept throughout the night. He has fair energy and fair appetite. At this time patient denies any suicidal or homical ideations, intent or plan. Patient denies any auditory, visual hallucinations and denies any paranoia or delusions. Patient denies any side effects from the medications and has been compliant with meds. Mental Status Exam: General Appearance: Patient appears to be stated age is alert. Patient has improving hygiene and poor grooming and has poor eye contact. Behavior: Patient is seated without any agitated behavior. Less irritable today. Speech: Patient's speech is fluent and nonpressured. Mood/Affect: Patient reports their mood is improving mildly, affect is congruent and constricted. Suicidality/Homicidality: Patient denies having any suicidal or homicidal ideation intent or plan. Perceptions: Patient denies any auditory or visual hallucinations. Though content/process: There is no evidence of any delusional thought content and thought process is linear and goal-directed. preoccupied with his fiance Memory and concentration: AOX3, grossly intact for the purposes of this session Judgment and insight: Poor/superficial, improving mildly Assessment Depressiveisorder unspecified, rule out bipolar depression Cannabis use disorder Methamphetamines/stimulant abuse Alcohol use disorder Nicotine dependence Plan: -Patient continues to meet criteria for inpatient psychiatric admission for sytom stabilization and safety. Patient has signed adult vountary form an medication consent and was placed in kristin's chart. -Medications: will increase Zyprexa 15 mg nightly for mood stabilization/insomnia. Will continue with Effexor to 75 mg for tomorrow for mood and anxiety. -When necessary Geodon and Ativan for agitation/aggression. -thiamine, MVM for etoh use -Imitrex to twice a day dosing for migraines. -Chest x-ray done on 04/18/2019 and on 04/21/2019 revealed no acute infiltrates. patient on cough suppressant and lozenges, symptoms mildly improving. -NRT - nicotine patch -SW on board for discharge planning. Will encourage substance use rehab upon discharge. Likely discharge in 2-3 days.
[2019-04-23 14:39] VITALS: BMI 20.8
[2019-04-23] MEDS: BENZOCAINE/MENTHOL LOZENG 1 EACH LOZENGE MUCOUS MEM PRN (21:01)
[2019-04-23] MEDS: OLANZapine 5 MG TAB PO SCH (21:58)
[2019-04-24] MEDS: VENLAFAXINE HCL ER 75 MG CAP PO SCH (08:21)
[2019-04-24] MEDS: NICOTINE 14MG/24HR PATCH TRANSDERM SCH (08:21)
[2019-04-24] MEDS ORDERED: OLANZapine 5 MG TAB PO SCH (09:00)
--- NOTE | 2019-04-24 10:35 | P.PN ---
Progress Note - Text Progress Note Date: 04/24/19 Interval History Patient was seen in his room and was agreeable flex o writer operator in the office. Willie foster states that he is better with regards his mood/anxiety and states that he is continuing to feel supported by his father and also staff on the unit with regards to his situation with his ex-fiance and how she broke up with him. Patient appears to have improving insight into his condition and showing impulse control. We spoke again about patient's housing options and patient claims that his boss would like to speak to the social insurance administrator about his housing options and how he can help. Patient claims that he has slept in a van outside of his bosses house before and that is an option for him right now. He claims that today he does feel "sick" and claims that he has some muscle cramps and has been continuing to cough and showed scenario writer several napkins with different colors sputum. He states that he did sleep better last night on the increase in his Zyprexa and is thankful for it. He has fair appetite. At this time patient denies any suicidal or homical ideations, intent or plan. Patient denies any auditory, visual hallucinations and denies any paranoia or delusions. Patient denies any side effects from the medications and has been compliant with meds. Mental Status Exam: General Appearance: Patient appears to be stated age is alert. Patient has improving hygiene and poor grooming and has poor eye contact. Behavior: Patient is seated without any agitated behavior. Less irritable today. Speech: Patient's speech is fluent and nonpressured. Mood/Affect: Patient reports their mood is improving mildly, affect is congruent and constricted. Suicidality/Homicidality: Patient denies having any suicidal or homicidal ideation intent or plan. Perceptions: Patient denies any auditory or visual hallucinations. Though content/process: There is no evidence of any delusional thought content and thought process is linear and goal-directed. preoccupied with his fiance and his cough/sputum Memory and concentration: AOX3, grossly intact for the purposes of this session Judgment and insight: Poor/superficial, improving mildly Assessment Depressive disorder unspecified, rule out bipolar depression Cannabis use disorder Methamphetamines/stimulant abuse Alcohol use disorder Nicotine dependence Plan: -Patient continues to meet criteria for inpatient psychiatric admission for sytom stabilization and safety. Patient has signed adult vountary form an medication consent and was placed in kristin's chart. -Medications: will continue with Zyprexa 15 mg nightly for mood stabilization/insomnia. Will continue increasing Effexor to 150 mg for tomorrow for mood and anxiety. -When necessary Geodon and Ativan for agitation/aggression. -thiamine, MVM for etoh use -Imitrex to twice a day dosing for migraines. -Chest x-ray done on 04/18/2019 and on 04/21/2019 revealed no acute infiltrates. patient on cough suppressant and lozenges. Ordered today CBC and influenza PCR. -NRT - nicotine patch -SW on board for discharge planning. Will encourage substance use rehab upon d ischarge. Patient continues to be unsure about his disposition. Likely discharge in 1-2 days.
[2019-04-24] MEDS: BENZOCAINE/MENTHOL LOZENG 1 EACH LOZENGE MUCOUS MEM PRN ×2 (12:00→20:43)
[2019-04-24] MEDS: LORazepam 1 MG TAB PO PRN ×2 (14:31→22:41)
[2019-04-24] MEDS: SUMAtriptan SUCCINATE 25 MG TAB PO PRN (19:52)
[2019-04-24] MEDS: OLANZapine 5 MG TAB PO SCH (20:42)
[2019-04-24] MEDS: guaiFENesin SYRUP 100MG/5ML 200 MG/10 ML CUP PO PRN (20:43)
[2019-04-24] MEDS: ALBUTEROL NEBULIZED 2.5 MG/3 ML INHALATION PRN (21:17)
[2019-04-25] MEDS: NICOTINE 14MG/24HR PATCH TRANSDERM SCH (08:34)
[2019-04-25] MEDS: VENLAFAXINE HCL ER 150 MG CAP PO SCH (08:35)
--- NOTE | 2019-04-25 09:11 | P.PN ---
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 Patient states that he is doing better with regards to his mood however claims that he is somewhat anxious about being discharged soon. He states that his boss and the marriage and family social worker are currently talking about what the best place for him to be discharged would be. He states that he would like to stay in the van outside of his bosses house. Patient also continues to be preoccupied with his cough however patient was not coughing during the interview. He states that his boss told him to ask about a lung biopsy. He states that he did sleep better last night with the Zyprexa however patient states that he does get some interruptions by being on the unit from nurses and other patients. Patient states that she feels that he would be ready for discharge tomorrow. He has fair appetite. At this time patient denies any suicidal or homical ideations, intent or plan. Patient denies any auditory, visual hallucinations and denies any paranoia or delusions. Patient denies any side effects from the medications and has been compliant with meds. Mental Status Exam: General Appearance: Patient appears to be stated age is alert. Patient has improving hygiene and poor grooming and has poor eye contact. Behavior: Patient is seated without any agitated behavior. Speech: Patient's speech is fluent and nonpressured. Mood/Affect: Patient reports their mood is improving mildly, affect is congruent and constricted. Suicidality/Homicidality: Patient denies having any suicidal or homicidal ideation intent or plan. Perceptions: Patient denies any auditory or visual hallucinations. Though content/process: There is no evidence of any delusional thought content and thought process is linear and goal-directed. preoccupied with his cough/sputum Memory and concentration: AOX3, grossly intact for the purposes of this session Judgment and insight: Fair, improving mildly Assessment Depressive disorder unspecified, rule out bipolar depression Cannabis use disorder Methamphetamines/stimulant abuse Alcohol use disorder Nicotine dependence Plan: -Patient continues to meet criteria for inpatient psychiatric admission for sytom stabilization and safety. Patient has signed adult vountary form an medication consent and was placed in patient's chart. -Medications: will continue with Zyprexa 15 mg nightly for mood stabilization/insomnia. Will continue with Effexor to 150 mg for mood and anxiety. -When necessary Geodon and Ativan for agitation/aggression. -thiamine, MVM for etoh use -Imitrex to twice a day dosing for migraines. -Chest x-ray done on 04/18/2019 and on 04/21/2019 revealed no acute infiltrates. patient on cough suppressant and lozenges. Influenza PCR negative. Awaiting CBC results. Patient will likely need to have further workup done as an outpatient. -NRT - nicotine patch -SW on board for discharge planning. Likely discharge tomorrow.
[2019-04-25] MEDS: BENZOCAINE/MENTHOL LOZENG 1 EACH LOZENGE MUCOUS MEM PRN ×2 (09:14→16:33)
[2019-04-25 11:52] LABS: Basophils # (A) 0.1 k/uL (0-0.2); Basophils % (A) 1 %; Eosinophils # (A) 0.4 k/uL (0-0.7); Eosinophils % (A) 6 %; HCT 44.9 % (39.0-53.0); HGB 14.4 gm/dL (13.0-17.5); Lymphocytes # (A) 1.9 k/uL (1.0-4.8); Lymphocytes % (A) 31 %; MCH 31.7 pg (25.0-35.0); MCHC 32.1 g/dL (31.0-37.0); MCV 98.6 fL (80.0-100.0); Mean Platelet Volume 7.3; Monocytes # (A) 0.6 k/uL (0-1.0); Monocytes % (A) 10 %; Neutrophils # (A) 3.1 k/uL (1.3-7.7); Neutrophils % (A) 49 %; Platelet Count 225 k/uL (150-450); RBC 4.56 m/uL (4.30-5.90); RDW 12.4 % (11.5-15.5); WBC 6.3 k/uL (3.8-10.6)
[2019-04-25] MEDS: SUMAtriptan SUCCINATE 25 MG TAB PO PRN (13:45)
[2019-04-25] MEDS: LORazepam 1 MG TAB PO PRN ×2 (13:45→21:24)
[2019-04-25] MEDS: ALBUTEROL NEBULIZED 2.5 MG/3 ML INHALATION PRN (20:42)
[2019-04-25] MEDS: OLANZapine 5 MG TAB PO SCH (21:24)
[2019-04-26 07:02] VITALS: BP 114/62; PULSE 73; RESP 13; TEMP 97.5
[2019-04-26] MEDS: NICOTINE 14MG/24HR PATCH TRANSDERM SCH (09:51)
[2019-04-26] MEDS: VENLAFAXINE HCL ER 150 MG CAP PO SCH (09:51)
--- NOTE | 2019-04-26 10:35 | P.DS ---
Providers Date of admission: 04/18/19 05:25 Expected date of discharge: 04/26/19 Attending physician: Willie Lu MD Consults: 04/18/19 05:36 Consult Physician Routine Consulting Provider: Javier Mendez Consult Reason/Comments: Medical H and P Do you want consulting provider notified?: Yes Primary care physician: Stated None - Discharge Diagnosis(es) (1) Bipolar depression Current Visit: Yes Status: Acute Priority: High (2) Cannabis abuse Current Visit: Yes Status: Acute Priority: Medium (3) Methamphetamine abuse Current Visit: Yes Status: Acute Priority: Medium (4) Alcohol use disorder, mild, abuse Current Visit: Yes Status: Acute Priority: Low (5) Nicotine dependence Current Visit: Yes Status: Acute Priority: Low Hospital Course: Admission HPI: Patient is a 28-year-old male who is currently unemployed, lives with his apple, has relocated several times however is currently at sujatha's [id number]'s house. Patient presented to the hospital with thoughts of increase in his depression and suicidal ideations and was escorted by the police. Patient allegedly took a shotgun and had it with him and is contemplating suicide however called 911. Patient reported having worsening stressors in his life especially with his fiance. He states that he missed apple have been arguing regularly and his fiance has a drinking problem and feels that she is enabling him to drink more. She claims that the night before he came in he drank too tall beers and has been drinking approximately 2-3 beers per day. He states that he has been noncompliant with his psychiatric medications and stopped him approximately 2 months ago as he was "feeling better " and did not follow up with [facility] for his up follow-up appointment. Patient states that his fiance has been "blowing him off" and then putting him through "emotional ups and downs" as she has most likely been seeing her ex- and may be getting back with him. Patient states that she does have court tomorrow and was subpoenaed to go for a PPO violation. Patient endorsed increase in his depression and irritability. He also endorsed feeling anxious having poor sleep. Patient claims that at this time he does not have any tremors or has never had withdrawal symptoms or seizures or DTs related to stopping alcohol. Patient denies any suicidal or homicidal ideations intent or plan. At this time patient denies any auditory or visual hallucinations. Patient denies any flight of ideas racing thoughts and increased in goal directed behavior. Patient admits to using cigarettes approximately 2-3 per day, he claims that he quit methamphetamines 5 years ago however was positive in his UDS on admission. Patient admitted to smoking marijuana approximately 2-3 joints per day. Patient admitted to drinking alcohol daily proximally to 3 beers/day. Hospital course: Upon admission to the unit patient was initially irritable, depressed and suicidal. Patient was however directable and agreeable to commence treatment. Patient got along well with other patients on the unit and followed unit protocol. Patient was compliant with the medications and denied any side effects throughout hospital course. Patient was re-started on Zyprexa and titrated up to his previous dose of 15 mg nightly for mood stabilization/insomnia. Patient was also started on Effexor and titrated up to 150 mg daily for mood and anxiety. Patient spoke of his stressors and engaged in therapy both group and individual. Patient was also seen by medical team for history and physical exam. Patient received 2 x-rays during his hospitalization on 04/18/2019 and also on 04/21/2019 for persistent cough which improved with symptomatic medication quitting antitussives and lozenges. X-rays did not show any acute infiltrates. Patient also had influenza PCR done which turned out to be negative along with CBC showing no white count or neutrophilia. Patient was was informed that he should follow-up with his primary care provider for further workup and treatment if needed. Patient was counseled on smoking cessation and potential toxins in the environment that he was exposed to in his occupations which may be the cause. Throughout the course of the hospitalization patient gradually improved with regards to mood, anxiety, sleep and became future oriented with improved insight and judgment. On the day of discharge patient denied any suicidal or homicidal ideations intent or plan denied any auditory or visual hallucinations. Patient endorsed wanting to live for his health and his future. The patient admitted to staff that he did have access to the shotgun which was at his fiance's [id number]'s house and clinical social work aide informed certified first assistant of the house to go and retrieve the gun and also the police as well to locate the gun. Patient denied any paranoia and did not endorse any delusions. Patient does have a significant history of substance abuse and was counseled on abstaining from all substances including alcohol and marijuana. Patient was also counseled on the medications and need for regular compliance and was encouraged to follow-up with their outpatient appointment for mental health and also for primary care. Prior to discharge a family meeting will be arranged by clinical social work aide to answer any questions and ensure safety upon discharge. Mental status exam: General Appearance: Patient appears to be stated age is alert, directable and cooperative. Patient is in no acute distress and has fair hygiene and grooming Behavior: Patient is calmly seated without any agitated behavior. Speech: Patient's speech is fluent and nonpressured. Mood/Affect: Patient reports their mood is "better", affect is congruent and euthymic. Suicidality/Homicidality: Patient denies having any suicidal or homicidal ideation intent or plan. Perceptions: Patient denies any auditory or visual hallucinations. Though content/process: There is no evidence of any delusional thought content and thought process is linear and goal-directed. Memory and concentration: AOX3, grossly intact for the purposes of this session. Can spell "WORLD" backwards correctly. Judgment and insight: fair, improved Impression: Bipolar disorder, depressed Cannabis use disorder Methamphetamine/stimulant abuse Alcohol use disorder, mild Nicotine dependence Plan: -Continue with discharge today as patient has improved and stabilized psychiatrically and is not currently an imminent threat to himself and/or others. -Continue medications: Patient to be continued on Zyprexa 15 mg nightly for mood stabilization/insomnia. Patient also to continue on Effexor 150 mg daily for mood/anxiety. Patient will also receive a 3 day prescription for Ativan 1 mg daily when necessary for anxiety. Patient was warned about the potential interaction with alcohol and other substances with benzodiazepines and patient was warned not to drink when he is taking this medication and is only given a small supply. -Patient was counseled on the need for medication compliance and appropriate follow-up at mental health and also primary care for medical issues. Patient verbalized understanding and agreed. -Social work to arrange for and conduct family meeting to ensure safety upon discharge and answer any questions/concerns. Social work also to arrange for patients follow up appointments with [facility] along with follow up with primary care provider. -Patient counseled on abstaining from recreational drugs and marijuana and alcohol. Was informed/educated on the adverse effects on their physical and mental health. Patient declined wanting to go to rehab at this time for substance use and elected to follow-up with [facility] and claimed that he wanted to cut back on his own. -Patient was instructed to return to the hospital or seek immediate medical care if their psychiatric or medical systems do worsen or reoccur. Allergies Allergy/AdvReac Type Severity Reaction Status Date / Time venom-honey bee Allergy Severe Swelling Verified 04/18/19 08:18 [bee venom (honey bee)] atomoxetine HCl AdvReac Intermediate Nausea & Verified 04/18/19 08:18 [From Strattera] Vomiting & Diarrhea Laboratory Results WBC 6.3 k/uL (3.8-10.6) 04/25/19 09:47 RBC 4.56 m/uL (4.30-5.90) 04/25/19 09:47 Hgb 14.4 gm/dL (13.0-17.5) 04/25/19 09:47 Hct 44.9 % (39.0-53.0) 04/25/19 09:47 MCV 98.6 fL (80.0-100.0) 04/25/19 09:47 MCH 31.7 pg (25.0-35.0) 04/25/19 09:47 MCHC 32.1 g/dL (31.0-37.0) 04/25/19 09:47 RDW 12.4 % (11.5-15.5) 04/25/19 09:47 Plt Count 225 k/uL (150-450) 04/25/19 09:47 Neutrophils % 49 % 04/25/19 09:47 Lymphocytes % 31 % 04/25/19 09:47 Monocytes % 10 % 04/25/19 09:47 Eosinophils % 6 % 04/25/19 09:47 Basophils % 1 % 04/25/19 09:47 Neutrophils # 3.1 k/uL (1.3-7.7) 04/25/19 09:47 Lymphocytes # 1.9 k/uL (1.0-4.8) 04/25/19 09:47 Monocytes # 0.6 k/uL (0-1.0) 04/25/19 09:47 Eosinophils # 0.4 k/uL (0-0.7) 04/25/19 09:47 Basophils # 0.1 k/uL (0-0.2) 04/25/19 09:47 Sodium 139 mmol/L (137-145) 04/19/19 08:38 Potassium 4.3 mmol/L (3.5-5.1) 04/19/19 08:38 Chloride 101 mmol/L (98-107) 04/19/19 08:38 Carbon Dioxide 29 mmol/L (22-30) 04/19/19 08:38 Anion Gap 9 mmol/L 04/19/19 08:38 BUN 18 mg/dL (9-20) 04/19/19 08:38 Creatinine 0.88 mg/dL (0.66-1.25) 04/19/19 08:38 Est GFR (CKD-EPI)AfAm >90 (>60 ml/min/1.73 sqM) 04/19/19 08:38 Est GFR (CKD-EPI)NonAf >90 (>60 ml/min/1.73 sqM) 04/19/19 08:38 Glucose 129 mg/dL (74-99) H 04/19/19 08:[address] Glu mg/dL 105 04/19/19 08:38 Hemoglobin A1c 5.3 % (4.0-6.0) 04/19/19 08:38 Calcium 9.3 mg/dL (8.4-10.2) 04/19/19 08:38 Total Bilirubin 0.9 mg/dL (0.2-1.3) 04/19/19 08:38 Conjugated Bilirubin 0.0 mg/dL (0.0-0.3) 04/19/19 08:38 Unconjugated Bilirubin 0.8 mg/dL (0.0-1.1) 04/19/19 08:38 Delta Bilirubin 0.1 mg/dL (0.0-0.2) 04/19/19 08:38 AST 24 U/L (17-59) 04/19/19 08:38 ALT 21 U/L (21-72) 04/19/19 08:38 Alkaline Phosphatase 52 U/L (38-126) 04/19/19 08:38 Total Protein 7.4 g/dL (6.3-8.2) 04/19/19 08:38 Albumin 4.6 g/dL (3.5-5.0) 04/19/19 08:38 Triglycerides 97 mg/dL (<150) 04/19/19 08:38 Cholesterol 153 mg/dL (<200) 04/19/19 08:38 LDL Cholesterol, Calc 81 mg/dL (0-99) 04/19/19 08:38 HDL Cholesterol 53 mg/dL (40-60) 04/19/19 08:38 TSH 2.870 mIU/L (0.465-4.680) 04/19/19 08:38 Urine Color Yellow 04/18/19 03:16 Urine Appearance Cloudy (Clear) 04/18/19 03:16 Urine pH 5.0 (5.0-8.0) 04/18/19 03:16 Ur Specific [place] 1.027 (1.001-1.035) 04/18/19 03:16 Urine Protein Negative (Negative) 04/18/19 03:16 Urine Glucose (UA) Negative (Negative) 04/18/19 03:16 Urine Ketones Trace (Negative) H 04/18/19 03:16 Urine Blood Negative (Negative) 04/18/19 03:16 Urine Nitrite Negative (Negative) 04/18/19 03:16 Urine Bilirubin Negative (Negative) 04/18/19 03:16 Urine Urobilinogen <2.0 mg/dL (<2.0) 04/18/19 03:16 Ur Leukocyte Esterase Negative (Negative) 04/18/19 03:16 Urine RBC 1 /hpf (0-5) 04/18/19 03:16 Urine WBC 1 /hpf (0-5) 04/18/19 03:16 Uric Acid Crystals Occasional /hpf (None) H 04/18/19 03:16 Urine Mucus Rare /hpf (None) H 04/18/19 03:16 Urine Opiates Screen Not Detected (NotDetected) 04/18/19 03:16 Ur Oxycodone Screen Not Detected (NotDetected) 04/18/19 03:16 Urine Methadone Screen Not Detected (NotDetected) 04/18/19 03:16 Ur Propoxyphene Screen Not Detected (NotDetected) 04/18/19 03:16 Ur Barbiturates Screen Not Detected (NotDetected) 04/18/19 03:16 U Tricyclic Antidepress Not Detected (NotDetected) 04/18/19 03:16 Ur Phencyclidine Scrn Not Detected (NotDetected) 04/18/19 03:16 Ur Amphetamines Screen Not Detected (NotDetected) 04/18/19 03:16 U Methamphetamines Scrn Detected (NotDetected) H 04/18/19 03:16 U Benzodiazepines Scrn Not Detected (NotDetected) 04/18/19 03:16 Urine Cocaine Screen Not Detected (NotDetected) 04/18/19 03:16 U Marijuana (THC) Screen Detected (NotDetected) H 04/18/19 03:16 Influenza Type A RNA Not Detected (Not Detectd) 04/24/19 19:00 Influenza Type B (PCR) Not Detected (Not Detectd) 04/24/19 19:00 Vital Signs Temp 97.5 F L 04/26/19 06:24 Pulse 73 04/26/19 06:24 Resp 13 04/26/19 06:24 BP 114/62 04/26/19 06:24 Pulse Ox 98 04/23/19 00:00 Patient Condition at Discharge: Stable Plan - Discharge Summary Discharge Rx Participant: Yes New Discharge Prescriptions: New LORazepam [Ativan] 1 mg PO DAILY PRN #3 tab PRN Reason: Anxiety Benzocaine/Menthol Lozeng [Cepacol lozenge] 1 each MUCOUS MEM Q4HR PRN #28 lozenge PRN Reason: Throat Irritation Venlafaxine HCl ER [Effexor XR] 150 mg PO DAILY 28 Days cap.er.24h Nicotine 14Mg/24Hr Patch [Habitrol] 1 patch TRANSDERM DAILY 14 Days patch SUMAtriptan SUCCINATE [Imitrex] 25 mg PO BID PRN 14 Days tab PRN Reason: migraine guaiFENesin SYRUP 100MG/5ML [Robitussin] 200 mg PO BID PRN 14 Days cup PRN Reason: Cough Albuterol Inhaler [Ventolin Hfa Inhaler] 1 - 2 puff INHALATION RT-Q6H PRN #2 inhaler PRN Reason: Wheezing Continue OLANZapine [ZyPREXA] 15 mg PO HS #28 tablet Discharge Medication List Albuterol Inhaler [Ventolin Hfa Inhaler] 1 - 2 puff INHALATION RT-Q6H PRN #2 inhaler 04/26/19 [Rx] Benzocaine/Menthol Lozeng [Cepacol lozenge] 1 each MUCOUS MEM Q4HR PRN #28 lozenge 04/26/19 [Rx] LORazepam [Ativan] 1 mg PO DAILY PRN #3 tab 04/26/19 [Rx] Nicotine 14Mg/24Hr Patch [Habitrol] 1 patch TRANSDERM DAILY 14 Days patch 04/26/19 [Rx] OLANZapine [ZyPREXA] 15 mg PO HS #28 tablet 04/26/19 [Rx] SUMAtriptan SUCCINATE [Imitrex] 25 mg PO BID PRN 14 Days tab 04/26/19 [Rx] Venlafaxine HCl ER [Effexor XR] 150 mg PO DAILY 28 Days cap.er.24h 04/26/19 [Rx] guaiFENesin SYRUP 100MG/5ML [Robitussin] 200 mg PO BID PRN 14 Days cup 04/26/19 [Rx] Follow up Appointment(s)/Referral(s): [facility] [NON-STAFF] - 1 Week Patient Instructions/Handouts: How to Stop Smoking (DC), Bipolar Disorder (DC), Depression (DC), Alcohol Intoxication (DC), Cannabis Abuse (DC), Methamphetamine Abuse (DC) Activity/Diet/Wound Care/Special Instructions: Activity and diet as tolerated. No guns or weapons in the home. Refrain from Alcohol and street drugs not prescribed by your physician/s. Take all medications as prescribed, and attend your scheduled follow up appointments for psychiatric after care. If in need of medication refills, please to your primary care physician, or your out patient psychiatric provider. If in crisis please call , or go the nearest ER for an evaluation. Discharge Disposition: HOME SELF-CARE
== END 2019-04-26 14:05 | disposition home or self-care (01) | DRG 885 ==
LOC: EC 02:56 → 3MHU 05:25
PROVIDERS: ADMIT Psychiatry & Neurology Psychiatry; ATTEND Psychiatry & Neurology Psychiatry
DX: F31.9 Bipolar disorder, unspecified (principal); R45.851 Suicidal ideations; F41.8 Other specified anxiety disorders; F10.10 Alcohol abuse, uncomplicated; F12.10 Cannabis abuse, uncomplicated; F15.10 Other stimulant abuse, uncomplicated; Z71.6 Tobacco abuse counseling; F17.210 Nicotine dependence, cigarettes, uncomplicated; Z71.41 Alcohol abuse counseling and surveillance of alcoholic; F43.10 Post-traumatic stress disorder, unspecified; F90.9 Attention-deficit hyperactivity disorder, unspecified type; G47.00 Insomnia, unspecified; J45.991 Cough variant asthma; J45.20 Mild intermittent asthma, uncomplicated; K21.9 Gastro-esophageal reflux disease without esophagitis; Z83.3 Family history of diabetes mellitus; Z91.5 Personal history of self-harm; T43.96XA Underdosing of unspecified psychotropic drug, initial encounter; Z91.128 Patient's intentional underdosing of medication regimen for other reason; Z65.3 Problems related to other legal circumstances; Z88.8 Allergy status to other drugs, medicaments and biological substances; Z56.0 Unemployment, unspecified; Z79.899 Other long term (current) drug therapy
CPT/HCPCS: 71046; 80053; 80061; 80306; 81001; 82075; 82248; 83036; 84443; 85025; 87502; 94640; 99285

== ENCOUNTER 2019-05-18 13:08 | Emergency (ER) | payer OTHER ==
[2019-05-18 13:34] VITALS: RESP 18
[2019-05-18] MEDS ORDERED: SODIUM CHLORIDE 0.9% 2,000 ML IV STA (13:45)
[2019-05-18] MEDS ORDERED: ONDANSETRON 4 MG/2 ML VIAL IVP STA (13:45)
[2019-05-18] MEDS ORDERED: diphenhydrAMINE 50 MG/ML 1 ML VIAL IVP STA (13:45)
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
[2019-05-18 14:11] LABS: Basophils # (A) 0.1 k/uL (0-0.2); Basophils % (A) 1 %; Eosinophils # (A) 0.2 k/uL (0-0.7); Eosinophils % (A) 2 %; HCT 46.3 % (39.0-53.0); HGB 15.6 gm/dL (13.0-17.5); Lymphocytes # (A) 1.4 k/uL (1.0-4.8); Lymphocytes % (A) 14 %; MCH 31.9 pg (25.0-35.0); MCHC 33.7 g/dL (31.0-37.0); MCV 94.5 fL (80.0-100.0); Mean Platelet Volume 6.7; Monocytes # (A) 0.7 k/uL (0-1.0); Monocytes % (A) 7 %; Neutrophils # (A) 7.3 k/uL (1.3-7.7); Neutrophils % (A) 73 %; Platelet Count 276 k/uL (150-450); RDW 12.3 % (11.5-15.5)
[2019-05-18 14:22] LABS: ALT 18 U/L (21-72); AST 20 U/L (17-59); African American GFR (CKD) >90 (>60 ml/min/1.73 sqM); Albumin 4.6 g/dL (3.5-5.0); Alkaline Phosphatase 74 U/L (38-126); Amylase 52 U/L (30-110); Anion Gap 7 mmol/L; Blood Urea Nitrogen 15 mg/dL (9-20); Calcium 9.5 mg/dL (8.4-10.2); Carbon Dioxide 27 mmol/L (22-30); Chloride 106 mmol/L (98-107); Glucose 101 mg/dL (74-99); Potassium 3.8 mmol/L (3.5-5.1); Sodium 140 mmol/L (137-145); Total Bilirubin 0.8 mg/dL (0.2-1.3); Total Protein 7.7 g/dL (6.3-8.2)
[2019-05-18 14:54] LABS: Appearance,Urine Clear (Clear); Bilirubin,Urine Negative (Negative); Blood,Urine Negative (Negative); Color,Urine Yellow; Glucose,Urine (UA) Negative (Negative); Ketones,Urine Negative (Negative); Leukocyte Esterase,Urine Negative (Negative); Nitrite,Urine Negative (Negative); Protein,Urine Negative (Negative); Specific Gravity,Urine 1.028 (1.001-1.035)
[2019-05-18 15:01] VITALS: BP 119/81; PULSE 95
[2019-05-18 15:29] VITALS: TEMP 98.4
== END 2019-05-18 15:27 | disposition home or self-care (01) ==
LOC: EC 13:08
DX: R11.2 Nausea with vomiting, unspecified (principal); R10.84 Generalized abdominal pain; R10.817 Generalized abdominal tenderness; F17.200 Nicotine dependence, unspecified, uncomplicated; Z88.8 Allergy status to other drugs, medicaments and biological substances; Z91.030 Bee allergy status
CPT/HCPCS: 36415; 80053; 82150; 83690; 85025; 81003; 99284; 96374; 96375; 96361; J1200; J2405

== ENCOUNTER 2019-06-10 00:06 | Inpatient (IN) | payer MEDICAID, OTHER ==
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
[2019-06-10 00:48] LABS: Amphetamine Screen,Urine Detected (NotDetected); Barbiturate Screen,Urine Not Detected (NotDetected); Benzodiazepines Screen,Urine Not Detected (NotDetected); Cocaine Screen,Urine Not Detected (NotDetected); Methadone Screen, Urine Not Detected (NotDetected); Opiate Screen,Urine Not Detected (NotDetected); Oxycodone Screen, Urine Not Detected (NotDetected); Phencyclidine Screen,Urine Not Detected (NotDetected); Tricyclic Antidepressant,Urine Not Detected (NotDetected); Urn Cannabinoid Scrn Detected (NotDetected)
[2019-06-10] MEDS ORDERED: MAGNESIUM HYDROXIDE 2,400 MG/10 ML CUP PO PRN (01:36)
[2019-06-10] MEDS ORDERED: MAG HYDROX/AL HYDROX/SIMETH 30 ML CUP PO PRN (01:36)
[2019-06-10] MEDS ORDERED: OLANZapine ODT 5 MG TAB PO PRN (01:38)
[2019-06-10] MEDS: NICOTINE 14MG/24HR PATCH TRANSDERM SCH (08:35)
[2019-06-10] MEDS: LORazepam 1 MG TAB PO PRN (08:36)
[2019-06-10] MEDS ORDERED: ALBUTEROL INHALER 60 PUFF/8 GM INHALER INHALATION PRN (10:52)
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
[2019-06-10 10:57] VITALS: BMI 21.6
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
[2019-06-10] MEDS: VENLAFAXINE HCL ER 37.5 MG CAP PO SCH (13:09)
[2019-06-10] MEDS: MUPIROCIN 2% OINT 22 GM TUBE TOPICAL SCH (21:29)
[2019-06-10] MEDS: OLANZapine 5 MG TAB PO SCH (21:30)
[2019-06-11] MEDS: NICOTINE 14MG/24HR PATCH TRANSDERM SCH (08:23)
[2019-06-11] MEDS: MUPIROCIN 2% OINT 22 GM TUBE TOPICAL SCH ×2 (08:31→21:15)
[2019-06-11] MEDS: VENLAFAXINE HCL ER 37.5 MG CAP PO SCH (08:31)
[2019-06-11] MEDS: LORazepam 1 MG TAB PO PRN ×3 (08:33→22:30)
--- NOTE | 2019-06-11 09:57 | P.PN ---
Progress Note - Text Progress Note Date: 06/11/19 Interval History: Patient was seen laying down in his bed and was directable and agreeable to sp eak to writer editor in the office. Patient appears to be more awake this morning and began speaking about the circumstances of why he is not little and mentioned him feeling depressed and wanting to commit suicide and cutting his left arm. Patient states that he does not remember speaking with weight writer editor yesterday about any of the information. Patient states that he has been feeling somewhat drowsy the past couple of days and feels more awake today. He states that he has been mainly isolative so far on the unit and has had a poor appetite. Patient states that he spoke with his girlfriend on the phone yesterday and they are on better terms. He states that his mood is still depressed and was requesting to have a "quick acting medication" to help him when he feels enraged. It was explained to patient that he should be working on his coping skills and distress tolerance and patient was encouraged to go to groups. Patient states that he has not been going to groups thus far. He states that he slept through the night with no issues. At this time patient denies any suicidal or homical ideations, intent or plan. Patient denies any auditory, visual hallucinations and denies any paranoia or delusions. Patient denies any side effects from the medications and has been compliant with meds. Mental Status Exam: General Appearance: Patient appears to be less lethargic today, stated age and is more directable. Patient has poor hygiene and grooming and poor eye contact. Behavior: Patient is calmly seated without any agitated behavior. Speech: Patient's speech is fluent and nonpressured. Soft tone. Mood/Affect: Patient reports their mood is depressed, affect is congruent and constricted. Suicidality/Homicidality: Patient denies having any suicidal or homicidal ideation intent or plan. Perceptions: Patient denies any auditory or visual hallucinations. Though content/process: There is no evidence of any delusional thought content and thought process is linear and goal-directed. Poor insight and judgment. Memory and concentration: AOX3, grossly intact for the purposes of this session. Judgment and insight: Poor/impulsive. Assessment Bipolar depression Anxiety disorder unspecified Cannabis abuse Meth amphetamine/stimulant abuse Alcohol use disorder Nicotine dependence Plan: -Patient continues to meet criteria for inpatient psychiatric admission for symptom stabilization and safety. Patient has signed adult voluntary form and medication consent and was placed in patient's chart. -Medications: We'll continue with Zyprexa 5 mg nightly for mood stabilization/ insomnia. Will increase Effexor to 75 mg daily for mood/anxiety. -When necessary Geodon and Ativan for agitation/aggression. -NRT - nicotine patch -Wound treatment as per medicine recommendations. Bandage plus antibacterial ointment. -Patient was encouraged to go to groups to work on coping skills and distress tolerance. -SW on board for discharge planning. We'll attempt to offer patient substance use rehab prior to discharge.
[2019-06-11 10:29] LABS: ALT 21 U/L (21-72); AST 24 U/L (17-59); African American GFR (CKD) >90 (>60 ml/min/1.73 sqM); Albumin 4.5 g/dL (3.5-5.0); Alkaline Phosphatase 62 U/L (38-126); Anion Gap 9 mmol/L; Bilirubin, Delta 0.2 mg/dL (0.0-0.2); Bilirubin,Unconjugated 0.5 mg/dL (0.0-1.1); Blood Urea Nitrogen 18 mg/dL (9-20); Calcium 9.3 mg/dL (8.4-10.2); Carbon Dioxide 26 mmol/L (22-30); Chloride 106 mmol/L (98-107); Cholesterol 130 mg/dL (<200); Glucose 96 mg/dL (74-99); HDL Cholesterol 44 mg/dL (40-60); LDL Cholesterol,Calculated 65 mg/dL (0-99); Non-African American GFR(CKD) >90 (>60 ml/min/1.73 sqM); Potassium 4.8 mmol/L (3.5-5.1); Sodium 141 mmol/L (137-145); Total Bilirubin 0.7 mg/dL (0.2-1.3); Total Protein 7.1 g/dL (6.3-8.2); Triglycerides 106 mg/dL (<150)
[2019-06-11] MEDS: ACETAMINOPHEN TAB 325 MG TAB PO PRN (15:47)
[2019-06-11 20:04] LABS: Hemoglobin A1C 5.3 % (4.0-6.0)
[2019-06-11] MEDS: OLANZapine 5 MG TAB PO SCH (21:35)
[2019-06-12 06:55] VITALS: RESP 16
[2019-06-12] MEDS: VENLAFAXINE HCL ER 75 MG CAP PO SCH (08:14)
[2019-06-12] MEDS: NICOTINE 14MG/24HR PATCH TRANSDERM SCH (08:14)
[2019-06-12] MEDS: MUPIROCIN 2% OINT 22 GM TUBE TOPICAL SCH ×2 (08:15→22:58)
--- NOTE | 2019-06-12 10:13 | P.PN ---
Progress Note - Text Progress Note Date: 06/12/19 Interval History: Patient was seen laying down in his bed and was directable and agreeable to sp eak to fha underwriter in the office. Patient appears to be more awake this morning and stated that he slept much better last night. Patient claims that he spoke with his biological dad over the phone yesterday and who states that he is going to go, up to [place] to get him and his girlfriend and moved him down to [place] and patient states that he would be okay with that plan. He also states that he has been talking to his girlfriend and they are on better terms and claims that he would be able to go back to her house after he is discharged. He states that he is continuing to be isolative on the unit and has been in bed most of the day yesterday and claims that today he is going to make more of an effort to go to groups. He stated that yesterday he attempted to go to groups however maryjane had to leave after 10 minutes because he felt too anxious. He claims that he is "stressing" about too many things to concentrate. Patient spoke about wanting to read a horticulture book on the unit and was requesting permission to have access to it. He claims that his depression and anxiety are improving at this time. At this time patient denies any suicidal or homical ideations, intent or plan. Patient denies any auditory, visual hallucinations and denies any paranoia or delusions. Patient denies any side effects from the medications and has been compliant with meds. Mental Status Exam: General Appearance: Patient appears to be less lethargic today, stated age and is more directable. Patient has improving hygiene and grooming and improving eye contact. Behavior: Patient is calmly seated without any agitated behavior. Speech: Patient's speech is fluent and nonpressured. Soft tone. Mood/Affect: Patient reports their mood is mildly improving, affect is congruent and constricted. Suicidality/Homicidality: Patient denies having any suicidal or homicidal ideation intent or plan. Perceptions: Patient denies any auditory or visual hallucinations. Though content/process: There is no evidence of any delusional thought content and thought process is linear and goal-directed. Memory and concentration: AOX3, grossly intact for the purposes of this session. Judgment and insight: Poor/impulsive, improving mildly. Assessment Bipolar depression Anxiety disorder unspecified Cannabis abuse Meth amphetamine/stimulant abuse Alcohol use disorder Nicotine dependence Plan: -Patient continues to meet criteria for inpatient psychiatric admission for symptom stabilization and safety. Patient has signed adult voluntary form and medication consent and was placed in patient's chart. -Medications: We'll continue with Zyprexa 5 mg nightly for mood stabilization/insomnia. Will continue with Effexor to 75 mg daily for mood/anxiety, with plan to titrate up tomorrow. -When necessary Geodon and Ativan for agitation/aggression. -NRT - nicotine patch -Wound treatment as per medicine recommendations. Bandage plus antibacterial ointment. -Patient was encouraged to go to groups to work on coping skills and distress tolerance. -SW on board for discharge planning. We'll attempt to offer patient substance use rehab prior to discharge.
[2019-06-12] MEDS: LORazepam 1 MG TAB PO PRN (16:36)
[2019-06-12] MEDS: ACETAMINOPHEN TAB 325 MG TAB PO PRN (16:36)
[2019-06-12] MEDS: ZIPRASIDONE 20 MG VIAL IM PRN (19:02)
[2019-06-12] MEDS: OLANZapine 5 MG TAB PO SCH (22:57)
[2019-06-13] MEDS: NICOTINE 14MG/24HR PATCH TRANSDERM SCH (08:35)
[2019-06-13] MEDS: MUPIROCIN 2% OINT 22 GM TUBE TOPICAL SCH ×2 (08:35→20:46)
[2019-06-13] MEDS: VENLAFAXINE HCL ER 75 MG CAP PO SCH (08:35)
[2019-06-13] MEDS: LORazepam 1 MG TAB PO PRN ×2 (08:36→17:43)
--- NOTE | 2019-06-13 11:37 | P.PN ---
Progress Note - Text Progress Note Date: 06/13/19 Interval History: Patient was seen wandering the hallways and was directable and agreeable to sp eak to display card writer in the office. Patient appears to be more awake this morning. He states that he went to group yesterday to make some crafts for his daughter and states that he enjoyed it. Patient claims that last night he was feeling irritable and agitated after he found out that his was in the hospital and also that his brother needed to be admitted to the hospital for cardiac reasons and states that she needed a PRN to help him sleep. He states that he feels guilty as he is in the hospital and is unable to go out and help them at this time. He again spoke about his biological dad wanting to come up to [place] from [place] to help him and move him down to [place] with him and patient is agreeable to that plan. Patient claims that he is attempting to be more visible on the unit and away from his bed. He claims that he is continuing to "stress" over many things in his life claims that his anxiety is "through the roof". At this time patient denies any suicidal or homical ideations, intent or plan. Patient denies any auditory, visual hallucinations and denies any paranoia or delusions. Patient denies any side effects from the medications and has been compliant with meds. Patient spoke about having a sore throat and feeling "stuffed up" and requested to speak to internal medicine today. Mental Status Exam: General Appearance: Patient appears to be less lethargic today, stated age and is more directable. Improving hygiene and grooming and improving eye contact. Behavior: Patient is calmly seated without any agitated behavior. Speech: Patient's speech is fluent and nonpressured. Mood/Affect: Patient reports their mood is mildly improving, continuing to have anxiety, affect is congruent and constricted. Suicidality/Homicidality: Patient denies having any suicidal or homicidal ideation intent or plan. Perceptions: Patient denies any auditory or visual hallucinations. Though content/process: There is no evidence of any delusional thought content and thought process is linear and goal-directed. Memory and concentration: AOX3, grossly intact for the purposes of this session. Judgment and insight: Poor/impulsive, improving mildly. Assessment Bipolar depression Anxiety disorder unspecified Cannabis abuse Meth amphetamine/stimulant abuse Alcohol use disorder Nicotine dependence Plan: -Patient continues to meet criteria for inpatient psychiatric admission for symptom stabilization and safety. Patient has signed adult voluntary form and medication consent and was placed in patient's chart. -Medications: We'll increase Zyprexa 7.5 mg nightly for mood stabilization/insomnia. Will increase Effexor to 150 mg daily for mood/anxiety. -When necessary Geodon and Ativan for agitation/aggression. -NRT - nicotine patch -Wound treatment as per medicine recommendations. Bandage plus antibacterial ointment. -Patient was encouraged to go to groups to work on coping skills and distress tolerance. -SW on board for discharge planning. Patient was declining substance use rehab, we'll continue to reevaluate. Likely discharge her early next week.
[2019-06-13] MEDS: BENZOCAINE/MENTHOL LOZENG 1 EACH LOZENGE MUCOUS MEM PRN ×2 (11:47→16:26)
[2019-06-13] MEDS: LORATADINE 10 MG TAB PO SCH (11:47)
[2019-06-13] MEDS: ACETAMINOPHEN TAB 325 MG TAB PO PRN (11:54)
--- NOTE | 2019-06-13 15:02 | P.PN ---
Subjective Progress Note Date: 06/13/19 Principal diagnosis: Sore throat Patient is a 28-year-old male with mental health unit. Past see patient by Dr. Lu as he states patient complaining of upper respiratory symptoms Patient states that he started having runny nose, postnasal drip, and nasal congestion approximately 3 days ago. Now having a severe sore throat. Hurts to swallow. Denies fevers or chills. Initially states that his has strep throat, but states he is unsure if she is seen a provider she just has a sore throat. No cough, no shortness of breath, no nausea or vomiting. Objective - Vital Signs Vital signs: Vital Signs Temp 97.7 F 06/13/19 06:18 Pulse 76 06/13/19 06:18 Resp 16 06/13/19 06:18 BP 117/59 06/13/19 06:18 Pulse Ox 97 06/10/19 17:09 Intake & Output 06/12/19 06/13/19 06/13/19 18:59 06:59 18:59 Weight 66.48 kg - Exam General: non toxic, no distress, appears at stated age Derm: warm, dry Head: atraumatic, normocephalic, symmetric Eyes: EOMI, no lid lag, anicteric sclera Mouth: no lip lesion, mucus membranes moist, pharyngeal erythema without any purulent, + postnasal drip, + Palpable cervical LN on Left submandibular Cardiovascular: S1S2 reg, no murmur, positive posterior tibial pulse bilateral, Lungs: CTA bilateral, no rhonchi, no rales , no accessory muscle use - Labs CBC & Chem 7: 06/11/19 08:24 Assessment and Plan Assessment: Upper respiratory tract infection - Rapid strep ordered and negative - likely viral - monitor fever profile - Flonase, claritin, Cepacol. GERD - Reports not taking anything on a daily basis for GERD -When necessary Maalox Asthma -Reports that he does not use an inhaler at home -prn Albuterol ordered Tobacco abuse -Nicotine replacement -Cessation Depression with self-harm -Your psych management Thank you for allowing us to participate in the care of this pleasant patient. Do not hesitate to contact us with questions. Someone can be reached from the [facility] hospitalist group all hours of the day at [phone] or via perfect serve.
[2019-06-13] MEDS: OLANZapine 2.5 MG TAB PO SCH (20:46)
[2019-06-14] MEDS: MUPIROCIN 2% OINT 22 GM TUBE TOPICAL SCH ×2 (08:37→20:18)
[2019-06-14] MEDS: NICOTINE 14MG/24HR PATCH TRANSDERM SCH (08:37)
[2019-06-14] MEDS: VENLAFAXINE HCL ER 150 MG CAP PO SCH (08:37)
[2019-06-14] MEDS: LORATADINE 10 MG TAB PO SCH (08:37)
[2019-06-14] MEDS: BENZOCAINE/MENTHOL LOZENG 1 EACH LOZENGE MUCOUS MEM PRN ×2 (08:37→16:40)
[2019-06-14] MEDS: ACETAMINOPHEN TAB 325 MG TAB PO PRN (08:39)
[2019-06-14] MEDS ORDERED: SODIUM CHLORIDE 0.65% NASAL SPRAY 44 ML BTL NASAL PRN (10:15)
--- NOTE | 2019-06-14 10:36 | P.PN ---
Progress Note - Text Progress Note Date: 06/14/19 Interval History: Patient was seen laying down in his bed and was directable and agreeable to sp eak to director underwriter sales in the office. Patient complains of continuing to have nasal congestion and sore throat and states that he had a strep test done yesterday which was negative. The patient was asking for nasal spray for his nasal passage to help him breathe better. Patient also states that "my anxiety is through the roof" as he spoke about learning of news that his girlfriends and uncle are kicking them out of the camper outside of their house and currently she moved her and the kids to a friend's house for the time being. Patient states that he feels overwhelmed with all his stressors in life and still has not heard back from his father who is supposed to be cleaning out the camper in [place] and coming up to get him. He states that he did not sleep well last night due to the upper respiratory symptoms however states that he did try to go to some groups yesterday and participate. Patient claims that his mood has mildly been improving however feels overwhelmed with all the stressors. Patient was focused on discharge. At this time patient denies any suicidal or homical ideations, intent or plan. Patient denies any auditory, visual hallucinations and denies any paranoia or delusions. Patient denies any side effects from the medications and has been compliant with meds. Mental Status Exam: General Appearance: Patient appears to be more awake today, appears to be stated age and is directable. Improving hygiene and grooming and improving eye contact. Behavior: Patient is calmly seated without any agitated behavior. Speech: Patient's speech is fluent and nonpressured. Mood/Affect: Patient reports their mood is mildly improving, continues to have anxiety, affect is congruent and constricted. Suicidality/Homicidality: Patient denies having any suicidal or homicidal id eation intent or plan. Perceptions: Patient denies any auditory or visual hallucinations. Though content/process: There is no evidence of any delusional thought content and thought process is linear and goal-directed. Memory and concentration: AOX3, grossly intact for the purposes of this session. Judgment and insight: Poor/impulsive, improving mildly. Assessment Bipolar depression Anxiety disorder unspecified Cannabis abuse Meth amphetamine/stimulant abuse Alcohol use disorder Nicotine dependence Plan: -Patient continues to meet criteria for inpatient psychiatric admission for symptom stabilization and safety. Patient has signed adult voluntary form and medication consent and was placed in patient's chart. -Medications: We'll increase Zyprexa 7.5 mg nightly for mood stabilization/i nsomnia. Will continue with Effexor to 150 mg daily for mood/anxiety, can consider titrating up on Monday morning if needed. Also can consider adding a mood stabilizer such as Lamictal over the weekend if indicated. -When necessary Geodon and Ativan for agitation/aggression. -NRT - nicotine patch -Wound treatment as per medicine recommendations. Bandage plus antibacterial ointment. -Patient continues to be encouraged to go to groups to work on coping skills and distress tolerance. -SW on board for discharge planning. Likely discharge her early next week.
[2019-06-14 11:02] LABS: Basophils % (A) 0 %; Eosinophils # (A) 0.3 k/uL (0-0.7); Eosinophils % (A) 3 %; HCT 44.3 % (39.0-53.0); HGB 15.7 gm/dL (13.0-17.5); Lymphocytes # (A) 1.7 k/uL (1.0-4.8); Lymphocytes % (A) 13 %; MCHC 35.4 g/dL (31.0-37.0); MCV 95.9 fL (80.0-100.0); Mean Platelet Volume 7.9; Monocytes # (A) 0.9 k/uL (0-1.0); Monocytes % (A) 7 %; Neutrophils # (A) 9.1 k/uL (1.3-7.7); Neutrophils % (A) 73 %; Platelet Count 227 k/uL (150-450); RBC 4.62 m/uL (4.30-5.90); RDW 11.9 % (11.5-15.5); WBC 12.3 k/uL (3.8-10.6)
[2019-06-14] MEDS: FLUTICASONE 50MCG/SPRAY NASAL 16GM EA NOSTRIL PRN (11:48)
[2019-06-14] MEDS: LORazepam 1 MG TAB PO PRN (16:45)
[2019-06-14] MEDS ORDERED: AZITHROMYCIN 500 MG TAB PO STA (18:53)
[2019-06-14] MEDS: ZIPRASIDONE 20 MG VIAL IM PRN (20:04)
[2019-06-14] MEDS: OLANZapine 2.5 MG TAB PO SCH (20:18)
[2019-06-15] MEDS: LORATADINE 10 MG TAB PO SCH (08:53)
[2019-06-15] MEDS: NICOTINE 14MG/24HR PATCH TRANSDERM SCH (08:53)
[2019-06-15] MEDS: VENLAFAXINE HCL ER 150 MG CAP PO SCH (08:53)
[2019-06-15] MEDS: BENZOCAINE/MENTHOL LOZENG 1 EACH LOZENGE MUCOUS MEM PRN ×3 (08:54→20:37)
[2019-06-15] MEDS: MUPIROCIN 2% OINT 22 GM TUBE TOPICAL SCH ×2 (08:54→20:37)
[2019-06-15] MEDS: FLUTICASONE 50MCG/SPRAY NASAL 16GM EA NOSTRIL PRN (08:55)
[2019-06-15] MEDS: AZITHROMYCIN 250 MG TAB PO SCH (11:29)
[2019-06-15] MEDS: ACETAMINOPHEN TAB 325 MG TAB PO PRN (11:31)
--- NOTE | 2019-06-15 11:59 | P.PN ---
Progress Note - Text Interval history: The patient is found in the [facility] he follows me to an interview room. He reports overall his mood is improving but he does have a significant amount of anxiety. He states that the Ativan is not helpful. We discussed wanting to avoid any further exploration of benzodiazepines as we would not be able to prescribe those to upon discharge. He is encouraged to continue developing coping skills communicating his concerns to others in thinking through the anxiety. He indicates that he will be moving to [place] shortly after discharge. We reviewed his psychotropic medications that have been restarted. He states that the Effexor has been helpful in the past for depression. He continues to use Zyprexa. Mental status exam: The patient is a thin male appearing his stated age she wears eyeglasses he is dressed in his own clothing. Eye contact is appropriate he is pleasant and cooperative. He demonstrates a euthymic affect he demonstrates no clear evidence of anxiety. He reports mood is improving. He reports no suicidal or homicidal ideation intent or plan. In terms of thought process he remains focused on the topic of anxiety. He demonstrates no tangential thinking loose associations or flight of ideas he can be circumstantial at times. He demonstrates no evidence of psychosis he does not appear hypomanic or manic. He demonstrates no verbal or physical aggressiveness. He demonstrates no involuntary repetitive movements. Plan: The patient will continue on his current psychotropic medication. We discussed increasing his efforts to communicate his feelings anxiety more so he can develop coping skills. We discussed the importance of following up with individual therapy upon discharge. He is encouraged to fully participate in the milieu. Vital signs reviewed.
[2019-06-15] MEDS: ZIPRASIDONE 20 MG VIAL IM PRN (20:29)
[2019-06-15] MEDS: OLANZapine 2.5 MG TAB PO SCH (20:37)
[2019-06-16] MEDS: VENLAFAXINE HCL ER 150 MG CAP PO SCH (08:39)
[2019-06-16] MEDS: LORATADINE 10 MG TAB PO SCH (08:39)
[2019-06-16] MEDS: MUPIROCIN 2% OINT 22 GM TUBE TOPICAL SCH ×2 (08:39→21:26)
[2019-06-16] MEDS: BENZOCAINE/MENTHOL LOZENG 1 EACH LOZENGE MUCOUS MEM PRN (08:39)
[2019-06-16] MEDS: NICOTINE 14MG/24HR PATCH TRANSDERM SCH (08:39)
[2019-06-16] MEDS: AZITHROMYCIN 250 MG TAB PO SCH (08:39)
[2019-06-16] MEDS: FLUTICASONE 50MCG/SPRAY NASAL 16GM EA NOSTRIL PRN (09:41)
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
[2019-06-16] MEDS: ACETAMINOPHEN TAB 325 MG TAB PO PRN (15:43)
[2019-06-16] MEDS: OLANZapine 2.5 MG TAB PO SCH (21:26)
[2019-06-17] MEDS: NICOTINE 14MG/24HR PATCH TRANSDERM SCH (08:40)
[2019-06-17] MEDS: AZITHROMYCIN 250 MG TAB PO SCH (08:41)
[2019-06-17] MEDS: VENLAFAXINE HCL ER 150 MG CAP PO SCH (08:41)
[2019-06-17] MEDS: MUPIROCIN 2% OINT 22 GM TUBE TOPICAL SCH ×2 (08:41→21:05)
[2019-06-17] MEDS: LORATADINE 10 MG TAB PO SCH (08:41)
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
[2019-06-17] MEDS: ACETAMINOPHEN TAB 325 MG TAB PO PRN ×2 (12:54→17:01)
[2019-06-17] MEDS: BENZOCAINE/MENTHOL LOZENG 1 EACH LOZENGE MUCOUS MEM PRN ×2 (12:55→17:01)
[2019-06-17] MEDS ORDERED: OLANZapine 10 MG TAB PO SCH (21:00)
[2019-06-17] MEDS: ZIPRASIDONE 20 MG VIAL IM PRN (21:41)
[2019-06-18] MEDS: AZITHROMYCIN 250 MG TAB PO SCH (08:52)
[2019-06-18] MEDS: NICOTINE 14MG/24HR PATCH TRANSDERM SCH (08:52)
[2019-06-18] MEDS: VENLAFAXINE HCL ER 150 MG CAP PO SCH (08:53)
[2019-06-18] MEDS: MUPIROCIN 2% OINT 22 GM TUBE TOPICAL SCH ×2 (08:53→20:49)
[2019-06-18] MEDS: LORATADINE 10 MG TAB PO SCH (08:53)
[2019-06-18] MEDS: BENZOCAINE/MENTHOL LOZENG 1 EACH LOZENGE MUCOUS MEM PRN ×2 (08:54→14:24)
[2019-06-18] MEDS ORDERED: AZITHROMYCIN 250 MG TAB PO SCH (09:00)
[2019-06-18] MEDS: LORazepam 1 MG TAB PO PRN (14:25)
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
[2019-06-18] MEDS ORDERED: OLANZapine 5 MG TAB PO SCH (21:00)
[2019-06-19 06:59] VITALS: BP 132/70; PULSE 61; TEMP 98
[2019-06-19] MEDS: LORATADINE 10 MG TAB PO SCH (08:16)
[2019-06-19] MEDS: MUPIROCIN 2% OINT 22 GM TUBE TOPICAL SCH (08:16)
[2019-06-19] MEDS: NICOTINE 14MG/24HR PATCH TRANSDERM SCH (08:16)
[2019-06-19] MEDS ORDERED: VENLAFAXINE HCL ER 75 MG CAP PO SCH (09:00)
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
== END 2019-06-19 11:56 | disposition home or self-care (01) | DRG 885 ==
LOC: EC 00:06 → 3MHU 01:32
PROVIDERS: ADMIT Psychiatry & Neurology Psychiatry; ATTEND Psychiatry & Neurology Psychiatry
DX: F31.30 Bipolar disorder, current episode depressed, mild or moderate severity, unspecified (principal); Q21.1 Atrial septal defect; F10.10 Alcohol abuse, uncomplicated; F12.10 Cannabis abuse, uncomplicated; F15.10 Other stimulant abuse, uncomplicated; Z71.6 Tobacco abuse counseling; F17.210 Nicotine dependence, cigarettes, uncomplicated; F43.10 Post-traumatic stress disorder, unspecified; G47.00 Insomnia, unspecified; J06.9 Acute upper respiratory infection, unspecified; J45.909 Unspecified asthma, uncomplicated; K21.9 Gastro-esophageal reflux disease without esophagitis; S01.511A Laceration without foreign body of lip, initial encounter; Y04.0XXA Assault by unarmed brawl or fight, initial encounter; S41.112A Laceration without foreign body of left upper arm, initial encounter; X78.9XXA Intentional self-harm by unspecified sharp object, initial encounter; Z79.899 Other long term (current) drug therapy; Z83.3 Family history of diabetes mellitus; Z91.5 Personal history of self-harm; T43.506A Underdosing of unspecified antipsychotics and neuroleptics, initial encounter; Z91.120 Patient's intentional underdosing of medication regimen due to financial hardship; Z88.8 Allergy status to other drugs, medicaments and biological substances; Z91.030 Bee allergy status; G62.89 Other specified polyneuropathies; S81.802S Unspecified open wound, left lower leg, sequela
CPT/HCPCS: 80053; 80061; 80306; 82075; 82248; 83036; 84443; 85025; 87081; 87430; 99285

== ENCOUNTER 2020-01-22 08:51 | Emergency (ER) | payer MEDICAID, OTHER ==
[2020-01-22 08:54] VITALS: RESP 18; TEMP 98.6
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
--- NOTE | 2020-01-22 09:26 | XR ---
EXAMINATION TYPE: XR chest 2V DATE OF EXAM: 01/22/2020 COMPARISON: 04/21/2019 HISTORY: Chest pain TECHNIQUE: Frontal and lateral views of the chest are obtained. FINDINGS: There is no focal air space opacity. No evidence for pneumothorax. No pleural effusion. The cardiac silhouette size is within normal limits. The osseous structures are grossly intact. IMPRESSION: 1. No acute cardiopulmonary process.
[2020-01-22 09:32] VITALS: PULSE 96
[2020-01-22 09:51] VITALS: BP 145/91
== END 2020-01-22 09:49 | disposition home or self-care (01) ==
LOC: EC 08:51
DX: R05 Cough (principal); R06.02 Shortness of breath; R06.00 Dyspnea, unspecified; F17.200 Nicotine dependence, unspecified, uncomplicated; Z20.828 Contact with and (suspected) exposure to other viral communicable diseases; Z88.8 Allergy status to other drugs, medicaments and biological substances; Z91.030 Bee allergy status
CPT/HCPCS: 99285 ×2; 71046; U0003

== ENCOUNTER 2020-02-03 11:20 | Inpatient (IN) | payer MEDICAID, OTHER ==
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
[2020-02-03 12:12] LABS: Amphetamine Screen,Urine Detected (NotDetected); Barbiturate Screen,Urine Not Detected (NotDetected); Benzodiazepines Screen,Urine Detected (NotDetected); Cocaine Screen,Urine Not Detected (NotDetected); Methadone Screen, Urine Not Detected (NotDetected); Opiate Screen,Urine Not Detected (NotDetected); Oxycodone Screen, Urine Not Detected (NotDetected); Phencyclidine Screen,Urine Not Detected (NotDetected); Tricyclic Antidepressant,Urine Not Detected (NotDetected); Urn Cannabinoid Scrn Detected (NotDetected)
[2020-02-03] MEDS ORDERED: MAGNESIUM HYDROXIDE 2,400 MG/10 ML CUP PO PRN (15:51)
[2020-02-03] MEDS ORDERED: ZIPRASIDONE 20 MG VIAL IM PRN (15:51)
[2020-02-03] MEDS ORDERED: LORazepam 2 MG/ML INJ IM PRN (15:55)
[2020-02-03] MEDS: ACETAMINOPHEN TAB 325 MG TAB PO PRN (18:55)
[2020-02-03] MEDS: NICOTINE 14MG/24HR PATCH TRANSDERM SCH (18:55)
[2020-02-03] MEDS: MAG HYDROX/AL HYDROX/SIMETH 30 ML CUP PO PRN (20:13)
[2020-02-03] MEDS: LORazepam 1 MG TAB PO PRN (22:39)
[2020-02-04 07:50] LABS: ALT 13 U/L (4-49); African American GFR (CKD) >90 (>60 ml/min/1.73 sqM); Albumin 3.8 g/dL (3.5-5.0); Anion Gap 6 mmol/L; Blood Urea Nitrogen 13 mg/dL (9-20); Calcium 8.5 mg/dL (8.4-10.2); Carbon Dioxide 25 mmol/L (22-30); Chloride 105 mmol/L (98-107); Cholesterol 128 mg/dL (<200); Glucose 85 mg/dL (74-99); HDL Cholesterol 47 mg/dL (40-60); LDL Cholesterol,Calculated 66 mg/dL (0-99); Non-African American GFR(CKD) >90 (>60 ml/min/1.73 sqM); Sodium 136 mmol/L (137-145); Total Bilirubin 1.1 mg/dL (0.2-1.3); Total Protein 6.5 g/dL (6.3-8.2); Triglycerides 75 mg/dL (<150)
[2020-02-04 07:52] LABS: AST 33 U/L (17-59); Potassium 4.3 mmol/L (3.5-5.1)
[2020-02-04 07:53] LABS: Alkaline Phosphatase 49 U/L (38-126)
[2020-02-04 08:16] LABS: Basophils % (A) 1 %; Eosinophils # (A) 0.3 k/uL (0-0.7); Eosinophils % (A) 4 %; HCT 42.8 % (39.0-53.0); Lymphocytes # (A) 2.5 k/uL (1.0-4.8); Lymphocytes % (A) 40 %; MCH 33.6 pg (25.0-35.0); MCHC 35.1 g/dL (31.0-37.0); MCV 95.8 fL (80.0-100.0); Mean Platelet Volume 7.9; Monocytes # (A) 0.6 k/uL (0-1.0); Monocytes % (A) 9 %; Neutrophils # (A) 2.7 k/uL (1.3-7.7); Neutrophils % (A) 43 %; Platelet Count 213 k/uL (150-450); RBC 4.46 m/uL (4.30-5.90); WBC 6.3 k/uL (3.8-10.6)
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
[2020-02-04] MEDS: NICOTINE 14MG/24HR PATCH TRANSDERM SCH (09:21)
[2020-02-04] MEDS: buPROPion XL 150 MG TAB.ER.24H PO SCH (09:46)
[2020-02-04] MEDS: LORazepam 1 MG TAB PO PRN (13:02)
[2020-02-04] MEDS ORDERED: WATER FOR INJECTION, STERILE 10 ML IV ONE (13:45)
[2020-02-04 15:00] LABS: Hemoglobin A1C 5.5 % (4.0-6.0)
--- NOTE | 2020-02-04 17:50 | PN ---
PROGRESS NOTE CHIEF COMPLAINT: Major depression and probable bipolar tendencies. HISTORY OF PRESENT ILLNESS: This is another admission for this 29-year-old white male. He has a history of bipolar depression. He apparently stopped taking his medications and wound up coming to the emergency room very agitated and cutting his left arm and shoulder. REVIEW OF SYSTEMS: He has had no headaches, neurologic problems, difficulty with vision or hearing, chest pain, cough, shortness of breath, heart disease, hypertension, murmurs, rheumatic fever, abdominal pain, nausea, vomiting, hematemesis, melena, hematochezia, jaundice, hepatitis, cirrhosis, renal failure, hematuria, dysuria, incontinence, diabetes, etc. Past medical history, family history, and personal and social histories reveal that when he was last seen 2 weeks ago in the office, he was on Klonopin 0.5 t.i.d. He also uses Fioricet occasionally for headaches. He is ALLERGIC TO STRATTERA AND FLONASE. He has had a hospitalization for a head injury in the past. He used to smoke but does not any longer. He uses alcohol occasionally. PHYSICAL EXAMINATION: Blood pressure is 128/64 with a pulse of 79, respirations of 10. He is afebrile. In general, he appears to be slender, well developed, well nourished, in no acute distress. Skin color is normal. Skin is warm and dry. He has superficial lacerations on the left arm going from the shoulder down the biceps area toward the elbow. Head, ears, eyes, nose, mouth and throat are normal. Pupils are equal, round and reactive. Neck is supple. Chest is clear to auscultation and percussion. Cardiac exam demonstrates normal sinus rhythm with no murmurs or extra sounds and the abdomen is flat, soft, nontender. There are no masses or visceromegaly. Extremities are normal. Neurologically he is intact. He is admitted to the hospital with the diagnoses: 1. Bipolar depression. 2. Self-inflicted laceration of the left arm. RECOMMENDATIONS: None unless he develops any medical problems. MMODL / IJN: [id number] /
[2020-02-04] MEDS ORDERED: ZIPRASIDONE 80 MG CAP PO SCH (21:00)
[2020-02-04] MEDS ORDERED: DIVALPROEX ER 500 MG TAB.ER.24H PO SCH (21:00)
[2020-02-05] MEDS: LORazepam 1 MG TAB PO PRN ×2 (08:23→18:22)
[2020-02-05] MEDS: NICOTINE 14MG/24HR PATCH TRANSDERM SCH (08:23)
[2020-02-05] MEDS: buPROPion XL 150 MG TAB.ER.24H PO SCH (08:23)
--- NOTE | 2020-02-05 09:45 | P.PN ---
Subjective Progress Note Date: 02/05/20 Principal diagnosis: Diagnosis: Bipolar 1 depressed The patient was started on a combination of 80 of Geodon and Depakote 500 aiming at getting him to Geodon 120 and Depakote 1500. Subjective: The patient says that he did not sleep very well despite the medication and he woke up this morning ruminating on how he hates his friend who booked up with the patient's fiance. However he says it has not carried over on feeling irritable toward the people in here. He says they all seem to be cool Objective: Vital signs: Temperature 90.8 for heart rate 73 respirations 16 blood pressure 128/58 Laboratory tests: The patient was positive for both uppers and downers otherwise hematology in general chemistry were normal The patient slept reasonably well with about 6 hours of uninterrupted sleep but not as well as he likes. He is definitely not too sleepy this morning He did not go to any groups I strongly emphasize his need to do so and to participate. He also need to work on insight is to what it was that got him in here in the first place. Certainly running out of his medications as part of it but he needs take some responsibility to find out how to not let that happen in the future. He also needs to do some thinking as to whether he needs to get into substance rehab in order to stay sober. Assessment and plan: Today but increase the Geodon to 120 the Depakote to 1000 mg, and Wellbutrin 150 each morning Tomorrow will increase the Depakote to 1500 then on Monday I'll increase the Wellbutrin to 300 if he does well over the weekend we'll discharge him on Monday Objective - Vital Signs Vital signs: Vital Signs Temp 98.7 F 02/04/20 13:03 Pulse 73 02/04/20 06:58 Resp 16 02/04/20 06:58 BP 128/58 02/04/20 06:58 Pulse Ox 99 02/03/20 16:48 - Labs CBC & Chem 7: 02/04/20 07:02 02/04/20 07:02
[2020-02-05] MEDS: ZIPRASIDONE 60 MG CAP PO SCH (19:54)
[2020-02-05] MEDS ORDERED: DIVALPROEX ER 500 MG TAB.ER.24H PO SCH (21:00)
[2020-02-06] MEDS: buPROPion XL 150 MG TAB.ER.24H PO SCH (08:17)
[2020-02-06] MEDS: LORazepam 1 MG TAB PO PRN ×2 (08:17→20:37)
[2020-02-06] MEDS: NICOTINE 14MG/24HR PATCH TRANSDERM SCH (08:17)
[2020-02-06] MEDS ORDERED: buPROPion XL 300 MG TAB.ER.24H PO SCH (09:00)
--- NOTE | 2020-02-06 09:00 | P.PN ---
Subjective Progress Note Date: 02/06/20 Principal diagnosis: Diagnosis: Bipolar 1 depressed Subjective: The patient says that he slept well last night no complaints of shaking not too drowsy during the day no dizziness constipation and dry mouth blurred vision no muscle cramps no racing thoughts he still has occasional fluctuation in the suicidal thoughts but he feels like he can keep himself safe and come and tell us if he does not feel safe. The patient denies any akathisia sensations and set comfortably during our interview one-on-one Objective: Vital signs temperature 97.9 heart rate 58 blood pressure 100/50 one room O2 sat is 98 Labs: Nothing new The patient is calm and cooperative Groups: He did go to a teen group at 1:30 yesterday mood is somewhat depressed but affect is energetic thingy care of ADLs have spontaneous speech and cooperative somewhat intrusive with peers he is verbal initiates conversations both with staff and peers restless. Mental status exam patient alert oriented to person place time and circumstance self-care is adequate he was resting in his room at 9:00 when I came to see him and says he had a good night sleep no signs of psychosis no aggression towards others. Assessment plan: Patient is young and very athletic which is why think he'll tolerate the Depakote and his slow heart rate is pried just from being young and athletic. The plan is to take his Depakote up to 1500 and grab a level on Monday evening just before his evening dose we will also increase Wellbutrin to 300 today and continue Geodon at 120. Objective - Vital Signs Vital signs: Vital Signs Temp 97.9 F 02/06/20 07:11 Pulse 58 L 02/06/20 07:11 Resp 18 02/06/20 07:11 BP 100/51 02/06/20 07:11 Pulse Ox 98 02/06/20 07:11 - Labs CBC & Chem 7: 02/04/20 07:02 02/04/20 07:02
[2020-02-06] MEDS ORDERED: buPROPion XL 150 MG TAB.ER.24H PO ONE (09:30)
[2020-02-06] MEDS: DIVALPROEX ER 500 MG TAB.ER.24H PO SCH (20:37)
[2020-02-06] MEDS: ZIPRASIDONE 60 MG CAP PO SCH (20:37)
[2020-02-07] MEDS: NICOTINE 14MG/24HR PATCH TRANSDERM SCH (08:11)
[2020-02-07] MEDS: buPROPion XL 300 MG TAB.ER.24H PO SCH (08:11)
--- NOTE | 2020-02-07 08:22 | P.PN ---
Subjective Progress Note Date: 02/07/20 Principal diagnosis: Diagnosis: Bipolar 1 depressed Subjective: Patient says that he slept well still struggling with anxiety but feels that it's better on the current medication he doesn't seem to have akathisia as he sat fine in his session with me. He still struggling with some depression but was preoccupied with needing to get his ensure properly. He couldn't clearly describe to me what the issue with ensure. At home sometimes he doesn't eat which is unusual because he smokes pot plus now I have him on Depakote so his appetite should be fine. Maybe it was just the depression and he keeps his energy up by swallowing ensure Objective: Vital signs temperature 90.8 heart rate 64 respirations 16 blood pressure 124/78 and room air O2 99 Labs: Nothing new The patient is struggling with a lot of anxiety still he had to have Ativan yesterday still for anxiety one time at about 8 in the morning Patient slept well Groups he went today T group at 3:30 was spontaneous compliant attentive initiated verbal interaction with peers and staff good focus Nursing observation yesterday as patient was oriented to person place time and circumstances could focus compliant still had suicidal ideas but no intent says he can come and talk to staff if he needs help initiates interaction with patients and staff Assessment plan the patient is tolerating his medication well he got a full dose of the Depakote last night and will get a level Monday night and be discharging him on Monday if he does well over the weekend. Is still a danger to himself due to suicidal thoughts but this is rapidly improving the increase in the Geodon should help any psychotic symptoms and it only takes a few days to works I think that should be working well by Monday. Objective - Vital Signs Vital signs: Vital Signs Temp 98.0 F 02/07/20 04:27 Pulse 64 02/07/20 04:27 Resp 16 02/07/20 04:27 BP 124/78 02/07/20 04:27 Pulse Ox 99 02/07/20 04:27 - Labs CBC & Chem 7: 02/04/20 07:02 02/04/20 07:02
[2020-02-07] MEDS: LORazepam 1 MG TAB PO PRN (12:48)
[2020-02-07] MEDS: ALBUTEROL HFA INHALER INHALATION PRN (21:12)
[2020-02-07] MEDS: ZIPRASIDONE 60 MG CAP PO SCH (21:14)
[2020-02-07] MEDS: DIVALPROEX ER 500 MG TAB.ER.24H PO SCH (21:14)
[2020-02-07] MEDS: MONTELUKAST 10 MG TAB PO SCH (21:15)
[2020-02-08] MEDS: buPROPion XL 300 MG TAB.ER.24H PO SCH (08:27)
[2020-02-08] MEDS: NICOTINE 14MG/24HR PATCH TRANSDERM SCH (08:27)
[2020-02-08] MEDS: ALBUTEROL HFA INHALER INHALATION PRN ×3 (08:28→19:01)
[2020-02-08] MEDS: MAG HYDROX/AL HYDROX/SIMETH 30 ML CUP PO PRN (11:14)
--- NOTE | 2020-02-08 13:58 | P.PN ---
Progress Note - Text Progress Note Date: 02/08/20 Clinical Problems: Bipolar disorder most recent episode depressed, post manic stress disorder Interim history: I evaluated the patient on cross coverage for Dr. Morrow. He complained of insomnia and nightmares. The nightmares related to the traumatic of his and child. He asked if he could restart prazosin; a medication prescribed in the past for his insomnia and nightmares. His [facility] was positive for amphetamines, methamphetamines, benzodiazepines and marijuana. He denied side effects to his current medications. He intermittently attends therapeutic groups and activities but seldom stays for the full session. He slept 5 hours last night. Mental status exam: He presented as a thin casually groomed 29-year-old male who was pleasant on approach. He made eye contact and attended to the interview. He had no prominent physical abnormalities. He had a blunted facial expression. His psychomotor retardation but no abnormal involuntary movements. Her speech was spontaneous with decreased rate and rhythm. His affect was depressed and not reactive. He denied suicidal ideation or wishes. He expressed feelings of hopelessness and helplessness. He did not describe ideas reference, paranoid ideation or delusions. Her thinking was abstract and associations were coherent and logical. He denied hallucinations did not appear to be responding to internal stimuli. Assessment: He is moderately mentally ill and mentally improve from admission. He complains of continued insomnia and nightmares. Plan: Continue inpatient treatment. Safety precautions. Restart prazosin milligram at bedtime. Continue Wellbutrin XL 300 mg daily, Depakote ER 50 mg at bedtime and Geodon 120 mg at bedtime. Continue Ativan 1 mg by mouth/IM 3 times a day when necessary for anxiety or agitation and Geodon 20 mg IM twice a day for agitation acute psychosis. Encourage participation in therapeutic groups and activities. Evaluate clinical status response to treatment daily basis.
--- NOTE | 2020-02-08 14:02 | PN ---
PROGRESS NOTE DATE OF SERVICE: 02/08/2020 CHIEF COMPLAINT: Difficulty breathing. HISTORY OF PRESENT ILLNESS: This gentleman is having trouble with shortness of breath and wheezing. Exam demonstrated scattered wheezing. IMPRESSION: Reactive airway disease. PLAN: Singulair 10 mg once a day and albuterol MDI 2 puffs q.i.d. and p.r.n. DALIA / SARAYN: [id number] /
[2020-02-08] MEDS: LORazepam 1 MG TAB PO PRN (19:23)
--- NOTE | 2020-02-08 20:30 | XR ---
EXAMINATION TYPE: XR chest 1V DATE OF EXAM: 02/08/2020 COMPARISON: 01/22/2020 HISTORY: Cough TECHNIQUE: Single view FINDINGS: Heart and mediastinum are normal. Lungs are clear. Diaphragm is normal. Bony thorax appears normal. IMPRESSION: Normal chest. No change.
[2020-02-08] MEDS: DIVALPROEX ER 500 MG TAB.ER.24H PO SCH (21:18)
[2020-02-08] MEDS: PRAZOSIN 1 MG CAP PO SCH (21:18)
[2020-02-08] MEDS: MONTELUKAST 10 MG TAB PO SCH (21:18)
[2020-02-08] MEDS: ZIPRASIDONE 60 MG CAP PO SCH (21:18)
[2020-02-09] MEDS: NICOTINE 14MG/24HR PATCH TRANSDERM SCH (08:12)
[2020-02-09] MEDS: buPROPion XL 300 MG TAB.ER.24H PO SCH (08:13)
[2020-02-09] MEDS: LORazepam 1 MG TAB PO PRN ×2 (08:13→14:16)
--- NOTE | 2020-02-09 11:14 | P.PN ---
Progress Note - Text Progress Note Date: 02/09/20 Clinical Problems: Bipolar disorder most recent episode depressed, methamphetamine use disorder, cannabis use disorder, post traumatic stress disorder Interim history: I evaluated the patient on cross coverage for Dr. Morrow. He complained of chest pain yesterday afternoon. EKG was normal and T3 serial troponins were normal. He believed that the chest pain was a result of anxiety and requested "something stronger" for anxiety other than Ativan. He denied side effects to the initial dose of prazosin and reported a slight improvement sleep. He is posed no management problem and has no episodes of behavioral dyscontrol. He requests when necessary Ativan for complaints of subjective anxiety. He attended therapeutic groups and activities yesterday. He slept 6 hours. Mental status exam: He presented as a thin casually groomed 29-year-old male who was pleasant on approach. He made eye contact and attended to the interview. He had no prominent physical abnormalities. He had a blunted facial expression. He had no abnormality of psychomotor activity. Her speech was spontaneous with decreased rate and rhythm. His affect was depressed and not reactive. He denied suicidal ideation or wishes. He expressed feelings of hopelessness and helplessness. He did not express ideas reference, paranoid ideation or delusions. Her thinking was abstract and associations were coherent and logical. He denied hallucinations did not appear to be responding to internal stimuli. Assessment: He is moderately mentally ill and mentally improve from admission. Plan: Continue inpatient treatment. Safety precautions. Continue Wellbutrin XL 300 mg daily, Depakote ER 50 mg at bedtime, Prozosin 1mg and Geodon 120 mg at bedtime. Continue Ativan 1 mg by mouth/IM 3 times a day when necessary for anxiety or agitation and Geodon 20 mg IM twice a day for agitation acute psy chosis. Encourage participation in therapeutic groups and activities. Evaluate clinical status response to treatment daily basis.
[2020-02-09] MEDS: ONDANSETRON 4 MG TAB PO PRN (16:18)
[2020-02-09] MEDS: ALBUTEROL HFA INHALER INHALATION PRN (16:18)
[2020-02-09] MEDS: MONTELUKAST 10 MG TAB PO SCH (20:43)
[2020-02-09] MEDS: PRAZOSIN 1 MG CAP PO SCH (20:43)
[2020-02-09] MEDS: ZIPRASIDONE 60 MG CAP PO SCH (20:43)
[2020-02-09] MEDS: DIVALPROEX ER 500 MG TAB.ER.24H PO SCH (20:44)
[2020-02-10] MEDS: buPROPion XL 300 MG TAB.ER.24H PO SCH (07:58)
[2020-02-10] MEDS: NICOTINE 14MG/24HR PATCH TRANSDERM SCH (07:58)
[2020-02-10] MEDS ORDERED: ZIPRASIDONE 80 MG CAP PO STA (08:53)
[2020-02-10] MEDS: ACETAMINOPHEN TAB 325 MG TAB PO PRN ×3 (09:01→21:05)
--- NOTE | 2020-02-10 09:09 | P.PN ---
Subjective Progress Note Date: 02/10/20 Principal diagnosis: Diagnosis: Bipolar 1 depressed Subjective: The patient says, "that mood stabilizer ain't worth shit! "He says that his father often triggers him at that he got way too angry and beat the stuffing out of his mattress and had to have Ativan to calm back down. He is afraid if he went home now he be in [place] [facility] if someone said the least thing to him. He denies any bad side effects on the medicine. He was able to sleep well last night. Denies any akathisia constipation dizziness dry mouth. Denies any suicidal or homicidal thoughts Objective: The patient is somewhat pressured and impulsive he was called to the desk to answer a phone and came racing up assuming something bad it happened because it was early in the day and he usually does not get phone calls at this time. He slipped and slammed into the wall injuring his left shoulder and wrist. Vital signs temperature is 97.6 heart rate 76 respirations 16 blood pressure 113/72 Labs nothing new Groups: Patient attended 80 group at 145 yesterday stayed for a little over half an hour left and returned he was intrusive and inappropriate in his interaction with others hyperverbal irritable. He also went to the 11 AM AT group knows observed to be about the same with some pressured speech. He had to have when necessary Ativan 3 times yesterday The patient is alert oriented to person place time and circumstance aware that he is not doing well but unable to catch himself when triggered. No signs of psychosis. Danger to self and others comes from his impulsive overreaction. His moods shift rapidly. He is not lethargic no dizziness no signs of psychosis. Assessment plan: The patient is tolerating his meds but not a lot of benefit yet. Some going to increase his Geodon give him 80 mg now the 120 tonight and increase to 200 daily at bedtime thereafter his Depakote level came back at 62 works between 80 and 120 now normally we would rather have him on the Depakote for a couple more days by think it be okay to increase at then to 2000 and between the increase in Geodon and Depakote we should be [id number] his mood swings for him Objective - Vital Signs Vital signs: Vital Signs Temp 97.6 F 02/10/20 06:51 Pulse 74 02/10/20 06:51 Resp 16 02/10/20 06:51 BP 113/72 02/10/20 06:51 Pulse Ox 98 02/08/20 19:50 Intake & Output 02/09/20 02/10/20 02/10/20 18:59 06:59 18:59 Weight 69.8 kg - Labs CBC & Chem 7: 02/04/20 07:02 02/04/20 07:02
--- NOTE | 2020-02-10 14:04 | XR ---
EXAMINATION TYPE: XR shoulder complete LT DATE OF EXAM: 02/10/2020 CLINICAL HISTORY: Injury with pain. TECHNIQUE: Three views of the left shoulder are obtained. COMPARISON: Prior left shoulder x-ray April 22, 2016 FINDINGS: There is no acute fracture/dislocation evident in the left shoulder. Mild to moderate narr owing at acromioclavicular joint. Distal acromion morphology unremarkable. Glenohumeral joint preser mahsa. The visualized ribs are intact and unremarkable. IMPRESSION: There is no acute fracture or dislocation in the left shoulder.
[2020-02-10] MEDS: DIVALPROEX ER 500 MG TAB.ER.24H PO SCH (21:04)
[2020-02-10] MEDS: MONTELUKAST 10 MG TAB PO SCH (21:04)
[2020-02-10] MEDS: PRAZOSIN 1 MG CAP PO SCH (21:04)
[2020-02-10] MEDS: ZIPRASIDONE 60 MG CAP PO SCH (21:05)
[2020-02-10] MEDS: LORazepam 1 MG TAB PO PRN (22:24)
[2020-02-11] MEDS: buPROPion XL 300 MG TAB.ER.24H PO SCH (08:14)
[2020-02-11] MEDS: NICOTINE 14MG/24HR PATCH TRANSDERM SCH (08:14)
--- NOTE | 2020-02-11 10:04 | P.PN ---
Subjective Progress Note Date: 02/11/20 Principal diagnosis: Diagnosis: Bipolar 1 depressed Subjective: The patient them continues to complain about shoulder pain he was running and slept and slammed into the wall with his left shoulder yesterday. Do not see any notes from internal medicine I talked to the nursing staff and they said they would have someone come up and take a look at his shoulder prior order an x-ray. That doesn't seem to be done candi ordered again today. It was important to differentiate whether the patient simply overreacted when triggered by his father he said his biological father had mentioned that he the father was going to the hospital but not Y and basically hung up on the patient which made him worried as to what is going on. The patient has located his biological father and his biological family and [place] meet [place] and may be stay there. He let this fact of his biological father still being alive slept to his [id number] and the patient says that [id number] and adoptive father not that thrilled about him taking off like that so there is tension in the family. He says that his moods do shift so he has to work really hard at times not to get angry with people when there is not that much going on. Says he is tolerating the increase in medicine which I think is adequate will need to get another Depakote level night and look for discharge on Monday if his moods are stabilizing. He denies active suicidality or homicidality Objective: The patient is alert cooperative good eye contact did not seem to be in severe pain taking care of his ADLs oriented to person place time and circumstance no evidence of psychosis Assessment plan: Continue current medication Objective - Vital Signs Vital signs: Vital Signs Temp 97.8 F 02/11/20 03:35 Pulse 60 02/11/20 03:35 Resp 17 02/11/20 03:35 BP 108/55 02/11/20 03:35 Pulse Ox 98 02/11/20 03:35 - Labs CBC & Chem 7: 02/04/20 07:02 02/04/20 07:02
[2020-02-11] MEDS: MAG HYDROX/AL HYDROX/SIMETH 30 ML CUP PO PRN (15:31)
[2020-02-11] MEDS: ONDANSETRON 4 MG TAB PO PRN (15:31)
[2020-02-11] MEDS: MONTELUKAST 10 MG TAB PO SCH (19:23)
[2020-02-11] MEDS: DIVALPROEX ER 500 MG TAB.ER.24H PO SCH (19:23)
[2020-02-11] MEDS: LORazepam 1 MG TAB PO PRN (19:24)
[2020-02-11] MEDS: ZIPRASIDONE 60 MG CAP PO SCH (19:24)
[2020-02-11] MEDS: PRAZOSIN 1 MG CAP PO SCH (20:40)
--- NOTE | 2020-02-12 08:47 | P.PN ---
Subjective Progress Note Date: 02/12/20 Principal diagnosis: Diagnosis: Bipolar 1 depressed Subjective: The patient says that his anxiety is so bad he is pacing all the time he feels nauseated and even more depressed. (I thought that the Geodon at the lower dose might be backfiring and causing increased anxiety however I think he is struggling with akathisia) he said that'll he called his mother last night to have her calm him back down he slept poorly and then in the middle night he felt like killing himself so he took a sheet and wrapped around his neck that he thought was dumb I shouldn't do that. Objective: Patient is pacing can't sit still tense affect he is alert and oriented to person place time and circumstance no clear psychotic responses he denies any suicidal or homicidal thoughts at this point and says that he could come and talk to staff if that happened again. Gait and station are normal r esponse times somewhat pressured, he perseverates on how miserable he feels. Vital signs temperature 98.5 heart rate 82 respirations 16 blood pressure 122/93 Labs nothing new Staff noticed him tearful last night because he could not sleep and pacing the halls Groups: The patient has been attending 80 groups but became anxious and had to leave early which fits with akathisia Assessment plan: Think the patient is having a bad akathisia reaction to his Geodon. The plan is to discontinue the Geodon cold turkey both the PDR and the evening dose I'll increase his Ativan for 1 day to 2 mg 3 times a day he is young and can tolerate that well. The current 1 mg only gets some relief briefly muscle going to increase his prazosin to 2 mg as it is not blocking his nightmares. I will check with the staff on what the different options are we will offer him a little bit more watchfulness especially in the evening I do not think he needs to have a one-on-one Objective - Vital Signs Vital signs: Vital Signs Temp 98.5 F 02/12/20 06:57 Pulse 82 02/12/20 06:57 Resp 16 02/12/20 06:57 BP 122/83 02/12/20 06:57 Pulse Ox 96 02/11/20 19:34 - Labs CBC & Chem 7: 02/04/20 07:02 02/04/20 07:02
[2020-02-12] MEDS: NICOTINE 14MG/24HR PATCH TRANSDERM SCH (09:09)
[2020-02-12] MEDS: buPROPion XL 300 MG TAB.ER.24H PO SCH (09:09)
[2020-02-12] MEDS: LORazepam 1 MG TAB PO SCH ×3 (09:10→20:51)
[2020-02-12] MEDS: LORazepam 1 MG TAB PO PRN (13:59)
[2020-02-12] MEDS: ONDANSETRON 4 MG TAB PO PRN ×2 (13:59→17:54)
[2020-02-12] MEDS: MONTELUKAST 10 MG TAB PO SCH (20:50)
[2020-02-12] MEDS: DIVALPROEX ER 500 MG TAB.ER.24H PO SCH (20:50)
[2020-02-12] MEDS: PRAZOSIN 1 MG CAP PO SCH (20:51)
[2020-02-12] MEDS ORDERED: QUEtiapine 200 MG TAB PO SCH (21:00)
[2020-02-13] MEDS: NICOTINE 14MG/24HR PATCH TRANSDERM SCH (08:28)
[2020-02-13] MEDS: buPROPion XL 300 MG TAB.ER.24H PO SCH (08:29)
[2020-02-13] MEDS: LORazepam 1 MG TAB PO PRN ×2 (08:34→17:06)
--- NOTE | 2020-02-13 10:06 | P.PN ---
Subjective Progress Note Date: 02/13/20 Principal diagnosis: Diagnosis: Bipolar 1 depressed Subjective: "No one ever listens to me in this fucking place I need a fucking new Objective: Vital signs temperature 97.8 heart rate 69 respirations 16 blood pressure 101/56 Labs: Nothing new He did have to have some extra anxiety hasn't about 2:00 yesterday afternoon but overall a lot less anxious than the day before. I believe he was having akathisia reaction which should be clearing as we shifted from Geodon to Ser oquel and he slept a lot better last night Staff report is that he is not going to groups and on the unit is somewhat intrusive and attention seeking irritable but denies any suicidal or homicidal thoughts Assessment and plan patient is doing somewhat better, it is always hard to tell the difference between [place] II overdramatic responses and side effects from the medicine. Denied any increase his Seroquel to 400 which she has found beneficial in the past without severe side effects and get a Depakote level. I given him routine Ativan 2 mg 3 times a day yesterday due to his reaction to the Geodon but that should be fading buying outside went back to Ativan 1 when necessary and he became angry about that. He seems to think is reasonable to be taking 6 mg of Ativan a day and then be discharged on that. He still wants to be discharged tomorrow and I told him I could not discharge him on 6 mg a day that he needs to try to get by on when necessary he said then I will go to groups but you better discharge me tomorrow or else. Objective - Vital Signs Vital signs: Vital Signs Temp 97.8 F 02/13/20 06:05 Pulse 69 02/13/20 06:05 Resp 16 02/13/20 06:05 BP 101/56 02/13/20 06:05 Pulse Ox 96 02/11/20 19:34 - Labs CBC & Chem 7: 02/04/20 07:02 02/04/20 07:02
[2020-02-13 10:12] VITALS: BMI 21.4
[2020-02-13] MEDS: DIVALPROEX ER 500 MG TAB.ER.24H PO SCH (20:10)
[2020-02-13] MEDS: PRAZOSIN 1 MG CAP PO SCH (20:11)
[2020-02-13] MEDS: MONTELUKAST 10 MG TAB PO SCH (20:11)
[2020-02-13] MEDS ORDERED: QUEtiapine 400 MG TAB PO SCH (21:00)
[2020-02-14 01:51] VITALS: BP 114/57; PULSE 63; RESP 14
[2020-02-14] MEDS: buPROPion XL 300 MG TAB.ER.24H PO SCH (08:12)
[2020-02-14] MEDS: NICOTINE 14MG/24HR PATCH TRANSDERM SCH (08:12)
[2020-02-14] MEDS: LORazepam 1 MG TAB PO PRN (08:12)
--- NOTE | 2020-02-14 08:39 | P.DS ---
Providers Date of admission: 02/03/20 15:26 Expected date of discharge: 02/14/20 Attending physician: Pérez Morrow MD Consults: 02/03/20 15:51 Consult Physician Routine Consulting Provider: Castro Galvan Consult Reason/Comments: H&P and medical Do you want consulting provider notified?: Yes Primary care physician: Castro Galvan Hospital Course: Hospital course: Patient came in depressed and suicidal. He had run out of his medications but is complaining about his medications side effects even though they had worked. He had been on a combination of Zyprexa and low-dose Geodon but didn't like the effects of the Zyprexa so they changed the Zyprexa to Seroquel. I decided to try to see if we could get by with one dopamine 2 karen so I went with Geodon and increase the dose to 120 because it tends to make him more anxious at 80. However he developed akathisia so we had to stop the Geodon. He reported that in the past when he took just Seroquel at 400 that worked and he tolerated it, but at 600 he did not tolerate the side effects. So we stopped the Geodon and put him on 200 of Seroquel the first night and then 400 of Seroquel last night which he is tolerating well. He would get triggered by phone calls from family. Yesterday he got quite upset because I given him 1 day of high dose Ativan to help him get off the Geodon and then went back to when necessary Ativan which change caused him to raise his voice and use the word fucking every other word. However I believes that this is more [place] II rather than the moods. The patient was also started on Depakote and his last level is therapeutic. So between the Depakote and the Seroquel at 400 his mood thought to be stable Mental status: today the patient is relatively calm oriented to person place time and circumstance cooperative good eye contact responses fit the questions no signs of psychosis does not look depressed or angry although he always seems to have a little bit of a chip on his shoulder. Gait and station normal excellent self care. He chose not to go to any groups yesterday saying that he is less likely to get agitated and screw up his discharge. Aftercare he is cared for at the [facility] for medication has appointment later this month also has a therapist he talks to on the phone I instructed him how to get the most benefit out of therapy and I'll give him a month's supply of his Depakote and Seroquel. Assessment: Assessment: The patient is on good medicines to stabilize moods and is tolerating them however there is a strong [place] II component I'm relying on the team's report who have worked with him for a long time and I think he has a tendency his whole life to overreact and then calm down. On top of that he did report sensing his mood swing for no clear reason and he feels that those are already somewhat better. So I think that he is safe for discharge he has good follow-up arranged but there is a good chance he will not do his part or that he will get angry not because he has mood swings but because he has trained himself to get angry. Hopefully this will improve his he goes to counseling. He did l isten well today as I explained to him how to get the most out of counseling Health Concerns: He seems to be tolerating both the Depakote and Seroquel without lethargy. He d id have a strong akathisia reaction to Geodon but that seems to have cleared. No other medical problems he did have a physical exam which noted a history of asthma reflux migraines and left lower leg neuropathy these are all chronic and neck she did not complain of migraine swelling in his hospital stay Pertinent Studies: Labs he was started on Depakote and last night he had a Depakote level at trough which was 88 so he solidly in the therapeutic range without being too high Vital signs temperature is 97.8 heart rate 63 respiration 14 blood pressure 114/57 Procedures: None Patient Condition at Discharge: Fair Plan - Discharge Summary New Discharge Prescriptions: No Action No Known Home Medications Discharge Medication List No Known Home Medications 02/03/20 [History] Follow up Appointment(s)/Referral(s): [facility] [Outside] - 02/17/20 11:00 am (02-17-20 @ 11:[address] Adair at [facility] office 02-18-20 @ 11:00 with Mo Wolf by phone) Castro Galvan MD [Primary Care Provider] - 1-2 days Patient Instructions/Handouts: How to Stop Smoking (DC), Mood Disorders (DC) Activity/Diet/Wound Care/Special Instructions: Activity and diet as tolerated. Avoid the use of street drugs and alcohol. Take all medications as prescribed. When you are in need of refills on your medications please contact your medical provider and/or outpatient psychiatrist to have this done. Please go to scheduled outpatient appointment for aftercare treatment. If symptoms return or become worse, call the crisis line at and/or go to the nearest emergency room for evaluation.
[2020-02-14] MEDS: ACETAMINOPHEN TAB 325 MG TAB PO PRN (10:29)
[2020-02-14 13:25] VITALS: TEMP 98.3
== END 2020-02-14 17:26 | disposition home or self-care (01) | DRG 885 ==
LOC: EC 11:20 → 3MHU 15:26
PROVIDERS: ADMIT Psychiatry & Neurology Psychiatry; ATTEND Psychiatry & Neurology Psychiatry
DX: F31.30 Bipolar disorder, current episode depressed, mild or moderate severity, unspecified (principal); F23 Brief psychotic disorder; F15.10 Other stimulant abuse, uncomplicated; J45.909 Unspecified asthma, uncomplicated; K21.9 Gastro-esophageal reflux disease without esophagitis; G43.909 Migraine, unspecified, not intractable, without status migrainosus; G57.92 Unspecified mononeuropathy of left lower limb; S84 Injury of nerves at lower leg level; F43.10 Post-traumatic stress disorder, unspecified; F90.9 Attention-deficit hyperactivity disorder, unspecified type; F17.200 Nicotine dependence, unspecified, uncomplicated; S51.812A Laceration without foreign body of left forearm, initial encounter; G47.00 Insomnia, unspecified; F43.9 Reaction to severe stress, unspecified; R07.9 Chest pain, unspecified; F41.9 Anxiety disorder, unspecified; G25.71 Drug induced akathisia; F12.10 Cannabis abuse, uncomplicated; M25.519 Pain in unspecified shoulder; R11.0 Nausea; X78.1XXA Intentional self-harm by knife, initial encounter; T43.595A Adverse effect of other antipsychotics and neuroleptics, initial encounter; W01.198A Fall on same level from slipping, tripping and stumbling with subsequent striking against other object, initial encounter; Y92.230 Patient room in hospital as the place of occurrence of the external cause; W34.00XS Accidental discharge from unspecified firearms or gun, sequela; Z71.3 Dietary counseling and surveillance; Z71.6 Tobacco abuse counseling; Z86.79 Personal history of other diseases of the circulatory system; Z56.0 Unemployment, unspecified; Z91.030 Bee allergy status; Z88.8 Allergy status to other drugs, medicaments and biological substances; Z83.3 Family history of diabetes mellitus; Z81.8 Family history of other mental and behavioral disorders
CPT/HCPCS: 71045; 80053; 80061; 80164; 80306; 82075; 83036; 84443; 84484; 85025; 93005; 99285

== ENCOUNTER → 2020-12-30 | Outpatient (CLI) | payer OTHER ==
--- NOTE | 2020-12-30 19:06 | CT ---
EXAMINATION TYPE: CT brain wo con DATE OF EXAM: 12/30/2020 COMPARISON: 01/03/2018 HISTORY: Multiple historical head injuries, memory loss. CT DLP: 1202.10 mGycm Automated exposure control for dose reduction was used. Ventricles and sulci appear normal. There is no mass effect nor midline shift. There is no sign of in tracranial hemorrhage. The calvarium is intact. There is no evidence of cerebral edema. IMPRESSION: Negative CT scan of the brain. No change.
== END | disposition home or self-care (01) ==
LOC: RADCTMAIN 17:54
PROVIDERS: ATTEND Family Medicine
DX: S09.90XA Unspecified injury of head, initial encounter (principal); R41.3 Other amnesia; X58.XXXA Exposure to other specified factors, initial encounter
CPT/HCPCS: 70450

== ENCOUNTER 2021-01-04 | Inpatient (IN) | payer MEDICAID, OTHER | END 2021-01-08 12:37 | disposition home or self-care (01) | DRG 885 | PROVIDERS: ADMIT Psychiatry & Neurology Psychiatry | CPT/HCPCS: 80053; 80061; 80306; 82075; 83036; 84443; 85025; 87635; 96372; 99285 ==

== ENCOUNTER 2021-02-10 18:28 | Emergency (ER) | payer OTHER ==
--- NOTE | 2021-02-10 19:24 | XR ---
EXAMINATION TYPE: XR ankle complete bilateral DATE OF EXAM: 02/10/2021 COMPARISON: NONE HISTORY: Ankle pain TECHNIQUE: 6 views FINDINGS: There is soft tissue swelling around the right ankle. I see no fracture nor dislocation. Le ft ankle joint appears fairly normal. There are no pathologic calcifications. IMPRESSION: Right-sided soft tissue swelling. No fracture seen of the left and right ankle.
[2021-02-10] MEDS ORDERED: KETOROLAC 15 MG/ML 1 ML VIAL IM STA (19:54)
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
[2021-02-10] MEDS ORDERED: DIPH,PERTUS(ACELL)TETVAC-LF 0.5 ML VIAL IM ONE (20:41)
[2021-02-10 21:07] VITALS: BP 138/74; PULSE 83; RESP 18; TEMP 97.7
== END 2021-02-10 21:07 | disposition home or self-care (01) ==
LOC: EC 18:28
DX: S80.12XA Contusion of left lower leg, initial encounter (principal); M25.572 Pain in left ankle and joints of left foot; M25.571 Pain in right ankle and joints of right foot; M79.89 Other specified soft tissue disorders; J45.909 Unspecified asthma, uncomplicated; Z87.891 Personal history of nicotine dependence; Z91.030 Bee allergy status; Z88.8 Allergy status to other drugs, medicaments and biological substances; V13.4XXA Pedal cycle driver injured in collision with car, pick-up truck or van in traffic accident, initial encounter; Y92.410 Unspecified street and highway as the place of occurrence of the external cause
CPT/HCPCS: 99283; 90471; 96372; 73610; 73630; 90715; J1885

== ENCOUNTER 2021-06-19 16:36 | Emergency (ER) | payer OTHER ==
[2021-06-19 16:54] VITALS: RESP 20; TEMP 98.9
[2021-06-19] MEDS ORDERED: SODIUM CHLORIDE 0.9% 1,000 ML IV STA (19:44)
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
[2021-06-19 20:08] LABS: Basophils % (A) 1 %; Eosinophils # (A) 0.3 k/uL (0-0.7); Eosinophils % (A) 5 %; HCT 44.3 % (39.0-53.0); HGB 14.9 gm/dL (13.0-17.5); Lymphocytes # (A) 2.3 k/uL (1.0-4.8); Lymphocytes % (A) 43 %; MCH 32.2 pg (25.0-35.0); MCHC 33.6 g/dL (31.0-37.0); MCV 95.6 fL (80.0-100.0); Mean Platelet Volume 7.9; Monocytes # (A) 0.5 k/uL (0-1.0); Monocytes % (A) 9 %; Neutrophils % (A) 39 %; Platelet Count 280 k/uL (150-450); RBC 4.63 m/uL (4.30-5.90); RDW 12.1 % (11.5-15.5); WBC 5.3 k/uL (3.8-10.6)
[2021-06-19 20:14] LABS: Appearance,Urine Clear (Clear); Bilirubin,Urine Negative (Negative); Blood,Urine Negative (Negative); Color,Urine Yellow; Glucose,Urine (UA) Negative (Negative); Ketones,Urine Negative (Negative); Leukocyte Esterase,Urine Negative (Negative); Nitrite,Urine Negative (Negative); PH, Urine 6.5 (5.0-8.0); Protein,Urine Trace (Negative); Specific Gravity,Urine 1.031 (1.001-1.035)
[2021-06-19 20:29] LABS: ALT 15 U/L (4-49); AST 20 U/L (17-59); African American GFR (CKD) >90 (>60 ml/min/1.73 sqM); Albumin 4.3 g/dL (3.5-5.0); Alkaline Phosphatase 57 U/L (38-126); Anion Gap 8 mmol/L; Blood Urea Nitrogen 15 mg/dL (9-20); Carbon Dioxide 26 mmol/L (22-30); Chloride 104 mmol/L (98-107); Glucose 79 mg/dL (74-99); Non-African American GFR(CKD) >90 (>60 ml/min/1.73 sqM); Potassium 4.1 mmol/L (3.5-5.1); Sodium 138 mmol/L (137-145); Total Bilirubin 0.4 mg/dL (0.2-1.3); Total Protein 7.2 g/dL (6.3-8.2)
--- NOTE | 2021-06-19 20:51 | XR ---
EXAMINATION TYPE: XR chest 2V DATE OF EXAM: 06/19/2021 COMPARISON: 02/08/2020 HISTORY: Cough TECHNIQUE: 2 views FINDINGS: Heart and mediastinum are normal. Lungs are clear. Diaphragm is normal. Bony thorax appears normal. IMPRESSION: Normal chest. No change.
[2021-06-19 22:10] VITALS: BP 124/84; PULSE 84
== END 2021-06-19 22:09 | disposition home or self-care (01) ==
LOC: EC 16:36
DX: B34.9 Viral infection, unspecified (principal); R53.83 Other fatigue; J45.909 Unspecified asthma, uncomplicated; Z87.891 Personal history of nicotine dependence; Z91.030 Bee allergy status; Z88.8 Allergy status to other drugs, medicaments and biological substances; Z20.822 Contact with and (suspected) exposure to COVID-19
CPT/HCPCS: 36415; 71046; 80053; 81003; 85025; 87635; 96360; 99284

== ENCOUNTER 2021-08-19 02:51 | Inpatient (IN) | payer MEDICAID, OTHER ==
[2021-08-19 03:58] LABS: Amphetamine Screen,Urine Not Detected (NotDetected); Benzodiazepines Screen,Urine Not Detected (NotDetected); Cocaine Screen,Urine Not Detected (NotDetected); Opiate Screen,Urine Not Detected (NotDetected); Phencyclidine Screen,Urine Not Detected (NotDetected); Tricyclic Antidepressant,Urine Detected (NotDetected); Urn Cannabinoid Scrn Detected (NotDetected)
[2021-08-19 03:59] LABS: Barbiturate Screen,Urine Not Detected (NotDetected); Methadone Screen, Urine Not Detected (NotDetected); Oxycodone Screen, Urine Not Detected (NotDetected)
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
[2021-08-19 08:26] LABS: Lithium <0.2 mmol/L
[2021-08-19 08:34] LABS: Valproic Acid (Depakene) 12.9 ug/mL
[2021-08-19] MEDS ORDERED: ACETAMINOPHEN TAB 325 MG TAB PO PRN (15:06)
[2021-08-19] MEDS ORDERED: MAG HYDROX/AL HYDROX/SIMETH 30 ML CUP PO PRN (15:06)
[2021-08-19] MEDS ORDERED: MAGNESIUM HYDROXIDE 2,400 MG/10 ML CUP PO PRN (15:06)
[2021-08-19] MEDS ORDERED: HALOPERIDOL LACTATE 5 MG/ML 1 ML VIAL IM PRN (15:06)
[2021-08-19] MEDS ORDERED: LORazepam 2 MG/ML INJ IM PRN (15:10)
[2021-08-19] MEDS ORDERED: haloperidoL 5 MG TAB PO PRN (15:11)
[2021-08-19] MEDS ORDERED: NICOTINE 14MG/24HR PATCH TRANSDERM SCH (15:15)
[2021-08-19] MEDS: SERTRALINE 50 MG TAB PO SCH (16:52)
[2021-08-19] MEDS ORDERED: QUEtiapine 100 MG TAB PO SCH (21:00)
[2021-08-19] MEDS ORDERED: LITHIUM CARBONATE 300 MG CAP PO SCH (21:00)
[2021-08-20 07:16] LABS: Basophils % (A) 1 %; Eosinophils # (A) 0.3 k/uL (0-0.7); Eosinophils % (A) 4 %; HCT 44.1 % (39.0-53.0); HGB 14.7 gm/dL (13.0-17.5); Lymphocytes # (A) 3.3 k/uL (1.0-4.8); Lymphocytes % (A) 44 %; MCH 32.1 pg (25.0-35.0); MCHC 33.3 g/dL (31.0-37.0); MCV 96.5 fL (80.0-100.0); Mean Platelet Volume 7.8; Monocytes # (A) 0.5 k/uL (0-1.0); Monocytes % (A) 7 %; Neutrophils # (A) 3.1 k/uL (1.3-7.7); Neutrophils % (A) 41 %; Platelet Count 236 k/uL (150-450); RBC 4.57 m/uL (4.30-5.90); RDW 12.2 % (11.5-15.5); WBC 7.5 k/uL (3.8-10.6)
[2021-08-20 07:36] LABS: ALT 12 U/L (4-49); AST 18 U/L (17-59); African American GFR (CKD) >90 (>60 ml/min/1.73 sqM); Alkaline Phosphatase 58 U/L (38-126); Anion Gap 5 mmol/L; Blood Urea Nitrogen 15 mg/dL (9-20); Calcium 9.4 mg/dL (8.4-10.2); Carbon Dioxide 28 mmol/L (22-30); Chloride 105 mmol/L (98-107); Glucose 85 mg/dL (74-99); Non-African American GFR(CKD) >90 (>60 ml/min/1.73 sqM); Potassium 4.6 mmol/L (3.5-5.1); Sodium 138 mmol/L (137-145); Total Bilirubin 0.5 mg/dL (0.2-1.3); Total Protein 6.9 g/dL (6.3-8.2)
[2021-08-20] MEDS: SERTRALINE 50 MG TAB PO SCH (08:49)
[2021-08-20 11:15] LABS: Chol/HDL Ratio 3.41 Ratio; LDL Cholesterol,Calculated 97.9 mg/dL (0.0-131.0)
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
[2021-08-20] MEDS: PALIPERIDONE 3 MG TAB.ER.24 PO SCH (20:44)
[2021-08-21] MEDS ORDERED: SERTRALINE 50 MG TAB PO ONE (09:00)
--- NOTE | 2021-08-21 12:04 | P.PN ---
Subjective Progress Note Date: 08/21/21 Principal diagnosis: Diagnostic impression: Schizoaffective disorder depressed type Cannabis use disorder Rule out bipolar disorder mixed type Subjective data: I was upset about my family members all being in gangs I decided to keep all the guns around me for my own protection I was feeling anxious and paranoid But that I decided to kill myself and put the gun in my mouth I don't know why did not give me the Depakote since that's the only thing that helps me sleep I have not slept since been admitted here Life has been tough and crazy I used cannabis daily I don't use any other drugs Objective data: Patient is casually dressed and groomed Patient shows labile affect with Baron and mood swings between irritability and anger to euphoria Insight and his problem is impaired Presents a somewhat disheveled appearance Remained somewhat projective Patient continues to rationalize intellectualize Insight into his problem is impaired Problem-solving abilities poor Plan: Continue current medications as prescribed We'll also add Depakote ER 750 mg at nighttime which may help both with the manic-like symptoms as well as insomnia Discussed effects and side effects Continue to engage in on the reddy activities individual milieu group and other activities Patient's insight into his substance use also remains poor which may also be contributing to his psychosis and relapse and would be a good candidate for referral to substance abuse program Nikolay Vega M.D. 08/21/2021 Objective - Vital Signs Vital signs: Vital Signs Temp 98.8 F 08/21/21 07:10 Pulse 78 08/21/21 07:10 Resp 18 08/19/21 17:36 BP 130/84 08/21/21 07:10 Pulse Ox 98 08/21/21 07:10 Intake & Output 08/20/21 08/21/21 08/21/21 18:59 06:59 18:59 Weight 62.5 kg - Labs CBC & Chem 7: 08/20/21 06:51 08/20/21 06:51
[2021-08-21] MEDS: PALIPERIDONE 3 MG TAB.ER.24 PO SCH (21:07)
[2021-08-22] MEDS: SERTRALINE 100 MG TAB PO SCH (08:20)
--- NOTE | 2021-08-22 11:48 | P.PN ---
Subjective Progress Note Date: 08/22/21 Principal diagnosis: Diagnostic impression: Schizoaffective disorder depressed type Cannabis use disorder Rule out bipolar disorder mixed type Subjective data: We are having a great time at this time We were playing a detected again where I thought it will take me all night to f ind out or get to the bottom of it and I was able to resolve it in 2 hours My sleep has gotten better Strep about 3-4 hours but better than the last time Trazodone makes me all wired and I don't want it Objective data: Patient is casually dressed and groomed Patient shows labile affect with Baron and mood swings between irritability and anger to euphoria Insight and his problem is impaired Presents a somewhat disheveled appearance Remained somewhat projective Patient continues to rationalize intellectualize Insight into his problem is impaired Problem-solving abilities poor Plan: Continue current medications as prescribed We'll also add Depakote ER 750 mg at nighttime which may help both with the manic-like symptoms as well as insomnia Discussed effects and side effects Continue to engage in on the reddy activities individual milieu group and other activities Patient's insight into his substance use also remains poor which may also be contributing to his psychosis and relapse and would be a good candidate for referral to substance abuse program Nikolay Vega M.D. 08/22/2021 Objective - Vital Signs Vital signs: Vital Signs Temp 98 F 08/22/21 06:27 Pulse 78 08/22/21 06:27 Resp 16 08/22/21 06:27 BP 141/80 08/22/21 06:27 Pulse Ox 98 08/21/21 07:10 Intake & Output 08/21/21 08/22/21 08/22/21 18:59 06:59 18:59 Weight 61 kg - Labs CBC & Chem 7: 08/20/21 06:51 08/20/21 06:51
[2021-08-22] MEDS: LORazepam 1 MG TAB PO PRN (17:13)
[2021-08-22] MEDS: PALIPERIDONE 3 MG TAB.ER.24 PO SCH (20:27)
[2021-08-22] MEDS: DIVALPROEX ER 250 MG TAB.ER.24H PO SCH (20:27)
[2021-08-23] MEDS: SERTRALINE 100 MG TAB PO SCH (08:53)
[2021-08-23] MEDS: DIVALPROEX ER 250 MG TAB.ER.24H PO SCH (08:53)
[2021-08-23] MEDS ORDERED: SUMAtriptan succinate 50 MG TAB PO STA (10:57)
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
[2021-08-23] MEDS: SUMAtriptan succinate 50 MG TAB PO PRN (21:23)
[2021-08-23] MEDS: PALIPERIDONE 3 MG TAB.ER.24 PO SCH (21:23)
[2021-08-24] MEDS: DIVALPROEX ER 250 MG TAB.ER.24H PO SCH ×2 (08:30→20:47)
[2021-08-24] MEDS: SERTRALINE 100 MG TAB PO SCH (08:30)
--- NOTE | 2021-08-24 11:45 | P.PN ---
Progress Note - Text Progress Note Date: 08/24/21 Interval History: Patient was seen lying in his bed this morning and did not want to leave his bed to speak to information writer. He claims that today he is not having a headache and that the Imitrex did help however did state that he is having abdominal pain this morning. He claims that he did get up and go to some groups and also breakfast. He states that he is not feeling nauseous today or any other GI symptoms. He states that his mood is "the same" and continues to endorse depression and hopelessness along with feeling worthless. He continues to have poor insight and judgment. He states that he only slept about 2-3 hours last night. He continues to feel fairly disinterested in his treatment. At this time patient denies any homical ideations, intent or plan. He continues to endorse suicidal thoughts, intent or plan. Patient denies any auditory, visual hallucinations and denies any paranoia or delusions. Patient denies any side effects from the medications and has been compliant with meds. Mental Status Exam: General Appearance: Patient appears to be thin, stated age is alert, directable. Patient appears to have improving hygiene and grooming. Behavior: Patient is seated without any agitated behavior. Psychomotor activity appears normal. Speech: Patient's speech is fluent and nonpressured. Spontaneous, with normal rate, tone, and volume. Mood/Affect: Patient reports their mood is improving mildly, affect is congruent and constricted. Somewhat nonchalant. Suicidality/Homicidality: Patient denies having any homicidal ideation intent or plan. Admits to suicidal thoughts today, however no intent or plan. Perceptions: Patient denies any visual hallucinations and denies any auditory hallucinations Though content/process: continues to be tangential. Logical. Depressive content. Memory and concentration: AOX3, grossly intact for the purposes of this session Judgment and insight: Chronically poor, mildly improving. IMPRESSIONS: Schizoaffective disorder, depressive type cannabis abuse Plan: -Patient continues to meet criteria for inpatient psychiatric admission for symptom stabilization and safety. Patient has not signed adult voluntary form and was placed in patient's chart. -Medications: Increased paliperidone 6 mg daily at bedtime for mood stabilization/psychosis. Continue with Zoloft 100 mg daily for mood/anxiety. Changed Depakote to 750 mg daily at bedtime for mood stabilization. Plan will be to likely transition patient on 2 Invega Sustenna to insure compliance. -Agitated Imitrex 50 mg twice a day when necessary for headaches. -When necessary Ativan and Haldol for agitation/aggression. -NRT - nicotine patch -SW on board for discharge planning. Encouraged the patient to participate in milieu. Patient will have a deferral with his manager practice tomorrow and full court hearing on 09/01.
[2021-08-24] MEDS: SUMAtriptan succinate 50 MG TAB PO PRN (19:11)
[2021-08-24] MEDS: PALIPERIDONE 6 MG TAB.ER.24 PO SCH (20:47)
[2021-08-25] MEDS: SERTRALINE 100 MG TAB PO SCH (08:46)
[2021-08-25] MEDS: SUMAtriptan succinate 50 MG TAB PO PRN (08:58)
[2021-08-25] MEDS ORDERED: diphenhydrAMINE 25 MG CAP PO PRN (11:38)
--- NOTE | 2021-08-25 11:40 | P.PN ---
Progress Note - Text Progress Note Date: 08/25/21 Interval History: Patient was seen lying in his bed this morning and did not want to leave his bed to speak to radio news writer. He was pretending to be sleeping and appeared to be irritable with radio news writer. He states that "I don't want to talk to you" and made negative comments towards radio news writer. He claims that he was having a headache again earlier today and was laying down. He was seen by staff and radio news writer earlier in the hallways in group and also speaking with other female patients appropriately. He continues to endorse depression however at times to be fairly manipulative. He continues to endorse passive suicidal thoughts. He states that he did not sleep well last night once again however was sleeping this morning. He continues to state that he feels worthless. He continues to have poor insight and judgment. He states that he only slept about 2-3 hours last night. He continues to feel fairly disinterested in his treatment. At this time patient denies any homical ideations, intent or plan. He continues to endorse suicidal thoughts, intent or plan. Patient denies any auditory, visual hallucinations and denies any paranoia or delusions. Patient denies any side effects from the medications and has been compliant with meds. Mental Status Exam: General Appearance: Patient appears to be thin, stated age is alert, directable. Patient appears to have improving hygiene and grooming. Behavior: Patient is seated without any agitated behavior. Psychomotor activity appears normal. Manipulative Speech: Patient's speech is fluent and nonpressured. Spontaneous, with normal rate, tone, and volume. Mood/Affect: Patient reports their mood is depressed however improving mildly, affect is congruent and constricted. nonchalant. Suicidality/Homicidality: Patient denies having any homicidal ideation intent or plan. Admits to suicidal thoughts today, however no intent or plan. Perceptions: Patient denies any visual hallucinations and denies any auditory hallucinations Though content/process: continues to be Logical. Depressive content. Argumentative and hostile towards radio news writer. Memory and concentration: AOX3, grossly intact for the purposes of this session Judgment and insight: Chronically poor, mildly improving. IMPRESSIONS: Schizoaffective disorder, depressive type cannabis abuse cluster B personality disorder Plan: -Patient continues to meet criteria for inpatient psychiatric admission for symptom stabilization and safety. Patient has not signed adult voluntary form and was placed in patient's chart. -Medications: paliperidone 6 mg daily at bedtime for mood stabilization/psychosis. increase Zoloft 150 mg daily for mood/anxiety. Depakote 750 mg daily at bedtime for mood stabilization. added benadryl 25 qhs prn for sleep -Agitated Imitrex 50 mg twice a day when necessary for headaches. -When necessary Ativan and Haldol for agitation/aggression. -NRT - nicotine patch -SW on board for discharge planning. Encouraged the patient to participate in milieu. Patient will have a deferral with his defense attorney today and full court hearing on 09/01. likely discharge in 1-2 days as patient is likely manipulative and exagerating symptoms and more likely underlying character pathology.
[2021-08-25] MEDS: DIVALPROEX ER 250 MG TAB.ER.24H PO SCH (21:15)
[2021-08-25] MEDS: LORazepam 1 MG TAB PO PRN (21:15)
[2021-08-25] MEDS: PALIPERIDONE 6 MG TAB.ER.24 PO SCH (21:15)
[2021-08-26 06:56] VITALS: RESP 14; TEMP 97.4
[2021-08-26 06:57] VITALS: BP 135/87; PULSE 79
[2021-08-26] MEDS ORDERED: SERTRALINE 50 MG TAB PO SCH (09:00)
[2021-08-26] MEDS: LORazepam 1 MG TAB PO PRN (12:47)
[2021-08-26 12:57] VITALS: BMI 18.7
--- NOTE | 2021-08-26 13:43 | P.DS ---
Providers Date of admission: 08/19/21 15:02 Attending physician: Prakash Sheehan MD Consults: 08/19/21 15:06 Consult Physician Routine Consulting Provider: Castro Galvan Consult Reason/Comments: history and physical/medical management Do you want consulting provider notified?: Yes Primary care physician: Castro Galvan Patient Condition at Discharge: Stable Plan - Discharge Summary New Discharge Prescriptions: New Paliperidone [Invega] 6 mg PO HS #30 tablet Sertraline [Zoloft] 150 mg PO DAILY #90 tab Continue [place] Carbonate 600 mg PO HS QUEtiapine [SEROquel] 100 mg PO HS EPINEPHrine (Auto Inject) [Epipen] 0.3 mg IM ONCE PRN PRN Reason: Anaphylaxis Dextroamphetamine/Amphetamine [Adderall] 20 mg PO BID@0700,1200 Divalproex [Depakote] 750 mg PO HS Discontinued Sertraline [Zoloft] 100 mg PO DAILY Discharge Medication List Dextroamphetamine/Amphetamine [Adderall] 20 mg PO BID@0700,1200 01/04/21 [History] EPINEPHrine (Auto Inject) [Epipen] 0.3 mg IM ONCE PRN 01/04/21 [History] Divalproex [Depakote] 750 mg PO HS 06/19/21 [History] [place] Carbonate 600 mg PO HS 06/19/21 [History] QUEtiapine [SEROquel] 100 mg PO HS 08/19/21 [History] Paliperidone [Invega] 6 mg PO HS #30 tablet 08/26/21 [Rx] Sertraline [Zoloft] 150 mg PO DAILY #90 tab 08/26/21 [Rx] Follow up Appointment(s)/Referral(s): [facility] [Outside] - 08/26/21 3:00 pm (08-26-21 at 3:00 with Konstantin Che from [facility] team 09-09-21 at 9:[address] Mcnamara at [facility]) Castro Galvan MD [Primary Care Provider] - 1-2 days Activity/Diet/Wound Care/Special Instructions: Activity and diet as tolerated. Avoid the use of street drugs and alcohol. Take all medications as prescribed. When you are in need of refills on your medications please contact your medical provider and/or outpatient psychiatrist to have this done. Please go to scheduled outpatient appointment for aftercare treatment. If symptoms return or become worse, call the crisis line at and/or go to the nearest emergency room for evaluation Discharge Disposition: HOME SELF-CARE Pending Studies Pending Results: His progress was discussed at team meeting He appeared to ahve improved and was prepared to be continued on the Rx. Discharge diagnosis: Schizoaffective disorder, depressive type cannabis abuse cluster B personality disorder He was last seem by Rasheeda Lu. at the time , he was on Zoloft 150 mg po od, depakote 750 mg od and paliperodone 6 mg po od. Follow up through the patient psychiatrist team. -
== END 2021-08-26 15:36 | disposition home or self-care (01) | DRG 885 ==
LOC: EC 02:51 → 3MHU 15:02
PROVIDERS: ADMIT Psychiatry & Neurology Psychiatry; ATTEND Psychiatry & Neurology Psychiatry
DX: F25.1 Schizoaffective disorder, depressive type (principal); R45.851 Suicidal ideations; F31.9 Bipolar disorder, unspecified; F12.10 Cannabis abuse, uncomplicated; F17.200 Nicotine dependence, unspecified, uncomplicated; Z20.822 Contact with and (suspected) exposure to COVID-19; F43.10 Post-traumatic stress disorder, unspecified; F60.89 Other specific personality disorders; F90.9 Attention-deficit hyperactivity disorder, unspecified type; J45.909 Unspecified asthma, uncomplicated; Z56.0 Unemployment, unspecified; Z59.00 Homelessness unspecified; Z83.3 Family history of diabetes mellitus; Z91.51 Personal history of suicidal behavior
CPT/HCPCS: 36415; 80053; 80061; 80164; 80178; 80306; 82075; 83036; 84443; 85025; 87635; 99285

== ENCOUNTER 2021-08-30 21:22 | Emergency (ER) | payer OTHER ==
[2021-08-30 21:36] VITALS: TEMP 97.7
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
[2021-08-31 00:53] LABS: Amphetamine Screen,Urine Not Detected (NotDetected); Barbiturate Screen,Urine Not Detected (NotDetected); Benzodiazepines Screen,Urine Not Detected (NotDetected); Cocaine Screen,Urine Not Detected (NotDetected); Methadone Screen, Urine Not Detected (NotDetected); Opiate Screen,Urine Not Detected (NotDetected); Oxycodone Screen, Urine Not Detected (NotDetected); Phencyclidine Screen,Urine Not Detected (NotDetected); Tricyclic Antidepressant,Urine Not Detected (NotDetected); Urn Cannabinoid Scrn Detected (NotDetected)
[2021-08-31 06:25] VITALS: BP 125/78; PULSE 68; RESP 14
== END 2021-08-31 08:12 | disposition home or self-care (01) ==
LOC: EC 21:22
DX: F39 Unspecified mood [affective] disorder (principal); F12.20 Cannabis dependence, uncomplicated; J45.909 Unspecified asthma, uncomplicated; Z91.030 Bee allergy status; Z88.9 Allergy status to unspecified drugs, medicaments and biological substances
CPT/HCPCS: 80306; 82075; 99284

== ENCOUNTER 2021-08-31 22:51 | Emergency (ER) | payer OTHER ==
[2021-08-31 22:59] VITALS: RESP 18; TEMP 98
[2021-08-31] MEDS ORDERED: IBUPROFEN 600 MG TAB PO STA (23:51)
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
--- NOTE | 2021-09-01 00:03 | XR ---
EXAMINATION TYPE: XR hand complete RT DATE OF EXAM: 08/31/2021 COMPARISON: NONE HISTORY: Fall. Pain TECHNIQUE: 3 views FINDINGS: Metacarpals are intact. I see no fracture nor dislocation. Joint spaces are normal. There a re no pathologic calcifications. IMPRESSION: Negative right hand exam. No fracture.
[2021-09-01 08:54] VITALS: BP 148/88; PULSE 80
== END 2021-09-01 08:51 | disposition home or self-care (01) ==
LOC: EC 22:51
DX: F99 Mental disorder, not otherwise specified (principal); Z91.048 Other nonmedicinal substance allergy status; Z88.9 Allergy status to unspecified drugs, medicaments and biological substances; J45.909 Unspecified asthma, uncomplicated
CPT/HCPCS: 82075; 99284

== ENCOUNTER 2021-09-04 11:06 | Emergency (ER) | payer OTHER ==
[2021-09-04 11:14] VITALS: RESP 18; TEMP 98.1
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
[2021-09-04 14:25] VITALS: BP 112/64; PULSE 80
== END 2021-09-04 14:25 | disposition home or self-care (01) ==
LOC: EC 11:06
DX: T69.9XXA Effect of reduced temperature, unspecified, initial encounter (principal); J45.909 Unspecified asthma, uncomplicated; Z91.030 Bee allergy status; Z88.9 Allergy status to unspecified drugs, medicaments and biological substances; Z59.02 Unsheltered homelessness
CPT/HCPCS: 99283

== ENCOUNTER 2021-09-04 22:56 | Emergency (ER) | payer OTHER ==
--- NOTE | 2021-09-05 03:52 | XR ---
EXAMINATION TYPE: XR tibia fibula LT DATE OF EXAM: 09/05/2021 COMPARISON: NONE HISTORY: Pain TECHNIQUE: 3 views FINDINGS: There is no evidence of fracture nor dislocation. Ankle joint and knee joint appear intact. IMPRESSION: Negative left tibia and fibula exam.
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
[2021-09-05 05:09] VITALS: BP 123/72; PULSE 66; RESP 18; TEMP 97.8
== END 2021-09-05 05:08 | disposition home or self-care (01) ==
LOC: EC 22:56
DX: S80.12XA Contusion of left lower leg, initial encounter (principal); J45.909 Unspecified asthma, uncomplicated; F17.200 Nicotine dependence, unspecified, uncomplicated; Z91.030 Bee allergy status; Z88.9 Allergy status to unspecified drugs, medicaments and biological substances; W19.XXXA Unspecified fall, initial encounter
CPT/HCPCS: 99284

== ENCOUNTER 2021-09-05 11:59 | Inpatient (IN) | payer MEDICAID, OTHER ==
[2021-09-05] MEDS ORDERED: DIPH,PERTUS(ACELL)TETVAC-LF 0.5 ML VIAL IM ONE (13:24)
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
[2021-09-05 15:23] LABS: Amphetamine Screen,Urine Not Detected (NotDetected); Barbiturate Screen,Urine Not Detected (NotDetected); Benzodiazepines Screen,Urine Not Detected (NotDetected); Cocaine Screen,Urine Not Detected (NotDetected); Methadone Screen, Urine Not Detected (NotDetected); Opiate Screen,Urine Not Detected (NotDetected); Oxycodone Screen, Urine Not Detected (NotDetected); Phencyclidine Screen,Urine Not Detected (NotDetected); Tricyclic Antidepressant,Urine Not Detected (NotDetected); Urn Cannabinoid Scrn Detected (NotDetected)
[2021-09-05] MEDS ORDERED: HALOPERIDOL LACTATE 5 MG/ML 1 ML VIAL IM PRN (15:45)
[2021-09-05] MEDS ORDERED: MAG HYDROX/AL HYDROX/SIMETH 30 ML CUP PO PRN (15:45)
[2021-09-05] MEDS ORDERED: ACETAMINOPHEN TAB 325 MG TAB PO PRN (15:45)
[2021-09-05] MEDS ORDERED: MAGNESIUM HYDROXIDE 2,400 MG/10 ML CUP PO PRN (15:45)
[2021-09-05] MEDS ORDERED: LORazepam 2 MG/ML INJ IM PRN (15:49)
[2021-09-05 17:49] LABS: Basophils # (A) 0.1 k/uL (0-0.2); Basophils % (A) 1 %; Eosinophils # (A) 0.1 k/uL (0-0.7); Eosinophils % (A) 3 %; HGB 13.3 gm/dL (13.0-17.5); Lymphocytes # (A) 1.7 k/uL (1.0-4.8); Lymphocytes % (A) 32 %; MCH 32.5 pg (25.0-35.0); MCHC 33.4 g/dL (31.0-37.0); MCV 97.4 fL (80.0-100.0); Mean Platelet Volume 7.9; Monocytes # (A) 0.6 k/uL (0-1.0); Monocytes % (A) 10 %; Neutrophils # (A) 2.7 k/uL (1.3-7.7); Neutrophils % (A) 51 %; Platelet Count 219 k/uL (150-450); RDW 12.7 % (11.5-15.5); WBC 5.3 k/uL (3.8-10.6)
[2021-09-05 18:17] LABS: ALT 13 U/L (4-49); AST 21 U/L (17-59); African American GFR (CKD) >90 (>60 ml/min/1.73 sqM); Albumin 4.1 g/dL (3.5-5.0); Alkaline Phosphatase 60 U/L (38-126); Anion Gap 9 mmol/L; Blood Urea Nitrogen 11 mg/dL (9-20); Calcium 8.9 mg/dL (8.4-10.2); Carbon Dioxide 26 mmol/L (22-30); Chloride 104 mmol/L (98-107); Glucose 89 mg/dL (74-99); Lithium <0.2 mmol/L; Non-African American GFR(CKD) >90 (>60 ml/min/1.73 sqM); Potassium 4.3 mmol/L (3.5-5.1); Sodium 139 mmol/L (137-145); Total Bilirubin 0.5 mg/dL (0.2-1.3); Total Protein 6.6 g/dL (6.3-8.2)
[2021-09-05 18:23] LABS: Valproic Acid (Depakene) 11.3 ug/mL
[2021-09-05] MEDS: LORazepam 1 MG TAB PO PRN (21:34)
[2021-09-05 22:26] LABS: Chol/HDL Ratio 2.56 Ratio; LDL Cholesterol,Calculated 71.4 mg/dL (0.0-131.0); VLDL Calculation 18.78 mg/dL (5.00-40.00)
[2021-09-06] MEDS: NICOTINE 14MG/24HR PATCH TRANSDERM SCH (07:45)
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
[2021-09-06] MEDS ORDERED: ONDANSETRON ODT 4 MG TAB PO PRN (17:53)
--- NOTE | 2021-09-06 20:34 | CONS ---
CONSULTATION CHIEF COMPLAINT: Major depression, psychosis. HISTORY OF PRESENT ILLNESS: This is another recent admission for this 31-year-old white male. He just left the psych unit recently. He went home and apparently he did not get his medications or keep his follow-up appointment at [facility]. He came back to the emergency room and was readmitted. REVIEW OF SYSTEMS: He denies any blackouts, problems with vision or hearing, chest pain, shortness of breath, abdominal pain, diarrhea, melena, hematochezia, urinary complaints, etc. He does have a little bit of nausea. Past medical history, family history, and personal and social histories are all otherwise unremarkable and unchanged. He has ALLERGIES TO FLONASE AND STRATTERA. He was just in the office recently and was on Zoloft, Invega, Seroquel, Depakote, lithium and Adderall. The remainder of his history is unremarkable. He used to smoke. PHYSICAL EXAMINATION: Blood pressure 130/86, pulse 78, respirations 17. He is afebrile. In general he appeared to be slender, in no acute distress. Skin color is normal. Skin is warm, dry. Lymph nodes are not enlarged. Head, ears, eyes, nose, mouth and throat were normal. Neck veins is not distended. Thyroid is not enlarged. Chest is clear. Cardiac exam is normal. Abdomen is soft, nontender. Extremities are normal. Neurologically he is intact. He is admitted to the hospital with the diagnoses: 1. Major depression. 2. Psychosis. PLAN: He has no medical issues or problems at this time. Thank you. Respectfully, MD DALIA Solano II / HERNAN: [id number] /
[2021-09-06] MEDS ORDERED: PRAZOSIN 1 MG CAP PO SCH (21:00)
[2021-09-06] MEDS ORDERED: LITHIUM CARBONATE ER 450 MG TABLET.ER PO SCH (21:00)
[2021-09-06] MEDS ORDERED: QUEtiapine 100 MG TAB PO SCH (21:00)
[2021-09-07] MEDS: LORazepam 1 MG TAB PO PRN ×3 (06:41→21:14)
[2021-09-07] MEDS: SERTRALINE 100 MG TAB PO SCH (07:57)
[2021-09-07] MEDS: NICOTINE 14MG/24HR PATCH TRANSDERM SCH (07:57)
[2021-09-07 11:52] VITALS: BMI 18.8
--- NOTE | 2021-09-07 12:34 | P.PN ---
Progress Note - Text Progress Note Date: 09/07/21 Interval History: Patient was seen resting in bed and was directable and agreeable to speak with the typewriter assembler in his room. The patient expresses that he has been experiencing worsening nightmares and vivid dreams which caused him to feel very upset. He reports that he was visualizing has dramatic history and it has caused him to feel very suicidal and endorse low mood today. He states that he is concerned that the prazosin is causing this. He was informed that presence and actually treats this and that he is likely experiencing these nightmares because he is focused on nightmares. He is currently reporting suicidal ideation however no intention or plan at this time. He denies any homicidal ideation, intention, and/or plan. The patient has been in adherent with his medications and the side from the worsening nightmares, is not endorsing any other significant side effects. He reports no auditory or visual hallucinations. He denies any paranoia or other delusions. Mental Status Exam: General Appearance: Patient appears to be stated age is alert, directable, and cooperative. Behavior: Patient is calmly seated without any agitated behavior. Speech: Patient's speech is fluent and nonpressured. Mood/Affect: Mood is upset and sad, affect is dysphoric. Suicidality/Homicidality: Patient endorses suicidal ideation however no homicidal ideation. Perceptions: Patient denies any visual hallucinations and denies any auditory hallucinations Though content/process: There is no evidence of any delusional thought content and thought process is linear and goal-directed. Fixated on his nightmares. Memory and concentration: AOX3, grossly intact for the purposes of this session Judgment and insight: Very poor. Vital Signs Temp 98.3 F 09/07/21 06:38 Pulse 77 09/07/21 06:38 Resp 16 09/06/21 14:41 BP 116/76 09/07/21 06:38 Pulse Ox 97 09/07/21 06:38 Intake & Output 09/06/21 09/07/21 09/07/21 18:59 06:59 18:59 Weight 61.235 kg Assessment Borderline personality disorder Posttraumatic stress disorder Schizoaffective disorder, depressive type Cannabis use disorder Plan: -Patient continues to meet criteria for inpatient psychiatric admission for symptom stabilization and safety. Patient has signed adult voluntary form and medication consent and was placed in patient's chart. -Medications: Increase Seroquel to 150 mg by mouth at bedtime for mood stabilization/insomnia Zoloft 150 mg by mouth daily for depression/PTSD Increase prazosin to 2 mg by mouth at bedtime for PTSD related nightmares Increase lithium to 600 mg by mouth at bedtime for chronic suicidal ideation -When necessary Ativan and Haldol for agitation/aggression. -NRT - nicotine patch -SW on board for discharge planning. Encouraged the patient to participate in milieu.
[2021-09-07] MEDS: PRAZOSIN 1 MG CAP PO SCH (20:36)
[2021-09-07] MEDS: LITHIUM CARBONATE 300 MG CAP PO SCH (20:37)
[2021-09-07] MEDS ORDERED: QUEtiapine 50 MG TAB PO SCH (21:00)
[2021-09-08] MEDS: SERTRALINE 100 MG TAB PO SCH (08:43)
[2021-09-08] MEDS: NICOTINE 14MG/24HR PATCH TRANSDERM SCH (08:44)
--- NOTE | 2021-09-08 11:12 | P.PN ---
Progress Note - Text Progress Note Date: 09/08/21 Interval History: Patient was seen resting in bed and was directable and agreeable to speak with the insurance writer in his room. Patient continues to endorse that he has been experiencing significant issues with his nightmares. He reports that he was very upset yesterday that his girlfriend did not call him back. He does report suicidal ideation but this is chronic in nature. He denies any homicidal ideation or plan. The patient is not reporting any auditory or visual hallu cinations. He is not reporting any paranoia or other delusions. The patient has been adherent with his medications and is not reporting any significant side effects aside from difficulty with worsening nightmares. However he was informed that this is not a side effect of these medications. Mental Status Exam: General Appearance: Patient appears to be stated age is alert, directable, and cooperative. Behavior: Patient is calmly seated without any agitated behavior. Speech: Patient's speech is fluent and nonpressured. Mood/Affect: Mood is upset and sad, affect is constricted. Suicidality/Homicidality: Patient endorses suicidal ideation however no homicidal ideation. Perceptions: Patient denies any visual hallucinations and denies any auditory hallucinations Though content/process: There is no evidence of any delusional thought content and thought process is linear and goal-directed. Fixated on his nightmares. Memory and concentration: AOX3, grossly intact for the purposes of this session Judgment and insight: Very poor. Vital Signs Temp 97.5 F L 09/08/21 06:35 Pulse 77 09/08/21 06:35 Resp 16 09/08/21 06:35 BP 135/73 09/08/21 06:35 Pulse Ox 97 09/07/21 06:38 Intake & Output 09/07/21 09/08/21 09/08/21 18:59 06:59 18:59 Weight 61.235 kg Assessment Borderline personality disorder Posttraumatic stress disorder Schizoaffective disorder, depressive type Cannabis use disorder Plan: -Patient continues to meet criteria for inpatient psychiatric admission for symptom stabilization and safety. Patient has signed adult voluntary form and medication consent and was placed in patient's chart. -Medications: Increase Seroquel to 200 mg by mouth at bedtime for mood stabilization/insomnia Zoloft 150 mg by mouth daily for depression/PTSD Continue prazosin 2 mg by mouth at bedtime for PTSD related nightmares Continue lithium 600 mg by mouth at bedtime for chronic suicidal ideation -When necessary Ativan and Haldol for agitation/aggression. -NRT - nicotine patch -SW on board for discharge planning. Encouraged the patient to participate in milieu.
[2021-09-08] MEDS: haloperidoL 5 MG TAB PO PRN (17:19)
[2021-09-08] MEDS: LORazepam 1 MG TAB PO PRN (17:19)
[2021-09-08] MEDS: QUEtiapine 200 MG TAB PO SCH (21:12)
[2021-09-08] MEDS: LITHIUM CARBONATE 300 MG CAP PO SCH (21:12)
[2021-09-08] MEDS: PRAZOSIN 1 MG CAP PO SCH (21:12)
[2021-09-09] MEDS: SERTRALINE 100 MG TAB PO SCH (08:36)
[2021-09-09] MEDS: NICOTINE 14MG/24HR PATCH TRANSDERM SCH (08:36)
--- NOTE | 2021-09-09 10:23 | P.PN ---
Progress Note - Text Progress Note Date: 09/09/21 Interval History: Patient was seen resting in bed and was directable and agreeable to speak with the leader writer in his room. The patient reports that he continues to have very vivid dreams however denies any trauma related nightmares. He is currently reporting his suicidal thoughts of decreased. He is denying any homicidal ideation, intention, and/or plan. The patient reports that he was upset that his girlfriend did not come for visiting hours. He states however that he was able to cope with this by practicing his coping skills that he learned on the unit. He is otherwise not reporting any significant side effects to his medications. He denies any auditory or visual hallucinations. He reports no paranoia or other delusions. Mental Status Exam: General Appearance: Patient appears to be stated age is alert, directable, and cooperative. Behavior: Patient is calmly seated without any agitated behavior. Speech: Patient's speech is fluent and nonpressured. Mood/Affect: Mood is "tired." Affect is constricted. Suicidality/Homicidality: Patient endorses suicidal ideation however no homicidal ideation. Perceptions: Patient denies any visual hallucinations and denies any auditory hallucinations Though content/process: There is no evidence of any delusional thought content and thought process is linear and goal-directed. Fixated on his nightmares. Memory and concentration: AOX3, grossly intact for the purposes of this session Judgment and insight: Mildly improving Vital Signs Temp 97.7 F 09/09/21 07:09 Pulse 80 09/09/21 07:09 Resp 18 09/09/21 07:09 BP 121/62 09/09/21 07:09 Pulse Ox 98 09/09/21 07:09 Assessment Borderline personality disorder Posttraumatic stress disorder Schizoaffective disorder, depressive type Cannabis use disorder Plan: -Patient continues to meet criteria for inpatient psychiatric admission for symptom stabilization and safety. Patient has signed adult voluntary form and medication consent and was placed in patient's chart. -Medications: Continue Seroquel 200 mg by mouth at bedtime for mood stabilization/insomnia Continue Zoloft 150 mg by mouth daily for depression/PTSD Continue prazosin 2 mg by mouth at bedtime for PTSD related nightmares Continue lithium 600 mg by mouth at bedtime for chronic suicidal ideation -When necessary Ativan and Haldol for agitation/aggression. -NRT - nicotine patch -SW on board for discharge planning. Encouraged the patient to participate in milieu.
[2021-09-09] MEDS: LORazepam 1 MG TAB PO PRN ×2 (13:32→20:37)
[2021-09-09] MEDS: haloperidoL 5 MG TAB PO PRN (15:04)
[2021-09-09] MEDS: QUEtiapine 200 MG TAB PO SCH (20:35)
[2021-09-09] MEDS: LITHIUM CARBONATE 300 MG CAP PO SCH (20:35)
[2021-09-09] MEDS: PRAZOSIN 1 MG CAP PO SCH (20:35)
[2021-09-10] MEDS: LORazepam 1 MG TAB PO PRN (08:32)
[2021-09-10] MEDS: SERTRALINE 100 MG TAB PO SCH (08:32)
[2021-09-10] MEDS: NICOTINE 14MG/24HR PATCH TRANSDERM SCH (08:32)
[2021-09-10] MEDS: haloperidoL 5 MG TAB PO PRN (10:36)
--- NOTE | 2021-09-10 11:40 | P.PN ---
Progress Note - Text Progress Note Date: 09/10/21 Interval History: Patient was seen resting in bed and was directable and agreeable to speak with the automobile and property underwriter in his room. The patient reports that he is not feeling well today. He reports that he is dealing with an upper respiratory infection and is not feeling good. He states that he is now very suicidal and has imminent plans to hurt himself. He reports that if he was to be discharge that he would try to kill himself. He was also noted by staff to tie a noose with his bed sheets. When asked why the sudden change in mood, the patient states that he "just feels terrible." He later becomes very upset with this provider and informs the treatment group that "this provider does not understand borderline personality disorder." He is otherwise taking his medications as directed however continues to report that he is experiencing significant nightmares. When asked what are his options when he was to be discharged, the patient reports that he is currently homeless and has nowhere to go. Mental Status Exam: General Appearance: Patient appears to be stated age is alert, directable, and intermittently cooperative Behavior: Patient is displaying psychomotor agitation. Eye contact is intermittent. Speech: Patient's speech is spontaneous, monotone, but otherwise fluent and nonpressured. Mood/Affect: Mood is "not feeling good" Affect is dysphoric and irritable. Suicidality/Homicidality: Patient endorses suicidal ideation with a plan to hang himself. No homicidal ideation is endorsed. Perceptions: Patient denies any visual hallucinations and denies any auditory hallucinations Though content/process: There is no evidence of any delusional thought content and thought process is linear and goal-directed. He continues to be fixated on nightmares however these nightmares are not related trauma. Memory and concentration: AOX3, grossly intact for the purposes of this session Judgment and insight: Very poor. Vital Signs Temp 97.2 F L 09/10/21 06:31 Pulse 73 09/10/21 06:31 Resp 16 09/10/21 06:31 BP 108/64 09/10/21 06:31 Pulse Ox 98 09/10/21 06:31 Assessment Borderline personality disorder Posttraumatic stress disorder Schizoaffective disorder, depressive type Cannabis use disorder Plan: -Patient continues to meet criteria for inpatient psychiatric admission for symptom stabilization and safety. Patient has signed adult voluntary form and medication consent and was placed in patient's chart. -We will coordinate with [facility] to determine a safe discharge plan and work with his care provider and ACT team. The patient is presenting with imminent risk of harm at this time and discharge will be held. The patient does have borderline personality disorder and is likely chronically suicidal however due to extreme mood lability at this time, the patient does present with imminent risk of harm to self. He also attempted to try and hang himself with the bed sheets by tying a noose. We will coronary closely with the [facility] team to ensure a safe discharge plan prior to discharge. -Medications: Continue Seroquel 200 mg by mouth at bedtime for mood stabilization/insomnia Continue Zoloft 150 mg by mouth daily for depression/PTSD Continue prazosin 2 mg by mouth at bedtime for PTSD related nightmares Continue lithium 600 mg by mouth at bedtime for chronic suicidal ideation -When necessary Ativan and Haldol for agitation/aggression. -NRT - nicotine patch -SW on board for discharge planning. Encouraged the patient to participate in milieu.
[2021-09-10] MEDS: QUEtiapine 200 MG TAB PO SCH (20:27)
[2021-09-10] MEDS: PRAZOSIN 1 MG CAP PO SCH (20:27)
[2021-09-10] MEDS: LITHIUM CARBONATE 300 MG CAP PO SCH (20:27)
[2021-09-11] MEDS: SERTRALINE 100 MG TAB PO SCH (08:07)
[2021-09-11] MEDS: NICOTINE 14MG/24HR PATCH TRANSDERM SCH (08:07)
[2021-09-11] MEDS: LORazepam 1 MG TAB PO PRN ×2 (10:47→20:43)
--- NOTE | 2021-09-11 13:36 | P.PN ---
Progress Note - Text Progress Note Date: 09/11/21 Interval history: Patient was seen in his room and was directable and agreeable to speak with technical document writer. States that he feels "crappy" reports depression, hypervigilance, hyperarousal. Reports intermittent suicidal thoughts and the last suicidal thought was last night without a plan.. At this time patient denies any suicidal or homicidal ideations intent or plan. Denies any Auditory or visual hallucinations. Patient denies any side effects from the medications and has bee n compliant with meds. Mental status exam: General Appearance: [Patient appears to be stated age is alert, directable, and cooperative.] Behavior: [No agitated behavior. Patient is calm and directable] Speech: Patient's speech is fluent and nonpressured. Mood/Affect: Mood is "crappy" affect is congruent and constricted. Suicidality/Homicidality: int SI, no plan, no HI Perceptions: Patient denies any auditory or visual hallucinations. Though content/process: [There is no evidence of any delusional thought content and thought process is linear and goal-directed.] Memory and concentration: AOX3, grossly intact for the purposes of this session Judgment and insight: improving mildly Assessment/Plan: Continue with current diagnosis. Patient continues to meet criteria for inpatient psychiatric admission for symptom stabilization and safety.[Patient will be maintained on current psychotropic medication regimen.] Monitor for medication compliance and for any psychotropic medication side effects. Will continue to monitor ongoing response to treatment. Encouraged participation in milieu.
[2021-09-11] MEDS: LITHIUM CARBONATE 300 MG CAP PO SCH (20:41)
[2021-09-11] MEDS: QUEtiapine 200 MG TAB PO SCH (20:41)
[2021-09-11] MEDS: PRAZOSIN 1 MG CAP PO SCH (20:41)
[2021-09-12 06:29] VITALS: BP 132/81; PULSE 80; RESP 18; TEMP 97.6
[2021-09-12] MEDS: SERTRALINE 100 MG TAB PO SCH (08:25)
[2021-09-12] MEDS: NICOTINE 14MG/24HR PATCH TRANSDERM SCH (08:25)
--- NOTE | 2021-09-12 11:45 | P.PN ---
Progress Note - Text Interval history: Patient was seen in his room and was directable and agreeable to speak with marine underwriter. 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 States that he is having significant nightmares, flashbacks, hypervigilance, hyperarousal, and increased anxiety. Also reports depression.. At this time patient denies any suicidal or homicidal ideations intent or plan. Denies any Auditory or visual hallucinations. Patient denies any side effects from the medications and has been compliant with meds. He did ask for his blanket to be given back Mental status exam: General Appearance: [Patient appears to be stated age is alert, directable, and cooperative.] Behavior: [No agitated behavior. Patient is calm and directable] Speech: Patient's speech is fluent and nonpressured. Mood/Affect: Mood is "depressed", affect is constricted. Suicidality/Homicidality: Patient denies having any suicidal or homicidal ideation intent or plan. Perceptions: Patient denies any auditory or visual hallucinations. Though content/process: [There is no evidence of any delusional thought content and thought process is linear and goal-directed.] Memory and concentration: AOX3, grossly intact for the purposes of this session Judgment and insight: impaired Assessment/Plan: Continue with current diagnosis. Patient continues to meet criteria for inpatient psychiatric admission for symptom stabilization and safety.[Patient will be maintained on current psychotropic medication regimen.] Monitor for medication compliance and for any psychotropic medication side effects. Will continue to monitor ongoing response to treatment. Encouraged participation in milieu. After d/w RN, will not give blanket back today, will defer to primary team.
[2021-09-12] MEDS: LORazepam 1 MG TAB PO PRN ×2 (12:18→19:56)
[2021-09-12] MEDS: LITHIUM CARBONATE 300 MG CAP PO SCH (19:56)
[2021-09-12] MEDS: QUEtiapine 200 MG TAB PO SCH (19:56)
[2021-09-12] MEDS: PRAZOSIN 1 MG CAP PO SCH (19:56)
[2021-09-13] MEDS: SERTRALINE 100 MG TAB PO SCH (08:38)
[2021-09-13] MEDS: NICOTINE 14MG/24HR PATCH TRANSDERM SCH (08:39)
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
== END 2021-09-13 11:44 | disposition home or self-care (01) | DRG 885 ==
LOC: EC 11:59 → 3MHU 15:39
PROVIDERS: ADMIT Psychiatry & Neurology Psychiatry; ATTEND Psychiatry & Neurology Psychiatry
DX: F25.1 Schizoaffective disorder, depressive type (principal); R45.851 Suicidal ideations; S61.519A Laceration without foreign body of unspecified wrist, initial encounter; F31.9 Bipolar disorder, unspecified; F43.10 Post-traumatic stress disorder, unspecified; F12.10 Cannabis abuse, uncomplicated; Z20.822 Contact with and (suspected) exposure to COVID-19; F17.210 Nicotine dependence, cigarettes, uncomplicated; S50.819A Abrasion of unspecified forearm, initial encounter; F60.3 Borderline personality disorder; F90.9 Attention-deficit hyperactivity disorder, unspecified type; K21.9 Gastro-esophageal reflux disease without esophagitis; G43.909 Migraine, unspecified, not intractable, without status migrainosus; J06.9 Acute upper respiratory infection, unspecified; J45.909 Unspecified asthma, uncomplicated; Z59.00 Homelessness unspecified; Z79.899 Other long term (current) drug therapy; Z81.3 Family history of other psychoactive substance abuse and dependence; Z83.3 Family history of diabetes mellitus; Z91.51 Personal history of suicidal behavior; Z88.8 Allergy status to other drugs, medicaments and biological substances; Z91.030 Bee allergy status; Z71.6 Tobacco abuse counseling; W26.8XXA Contact with other sharp object(s), not elsewhere classified, initial encounter
CPT/HCPCS: 80053; 80061; 80164; 80178; 80306; 82075; 83036; 84443; 85025; 87635; 90471; 90715; 99285

== ENCOUNTER 2021-09-17 01:01 | Emergency (ER) | payer OTHER ==
[2021-09-17 01:10] VITALS: TEMP 97
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
[2021-09-17] MEDS ORDERED: ACETAMINOPHEN TAB 325 MG TAB PO STA (02:31)
[2021-09-17] MEDS ORDERED: IBUPROFEN 600 MG TAB PO STA (02:31)
--- NOTE | 2021-09-17 02:44 | XR ---
EXAMINATION TYPE: XR chest 2V DATE OF EXAM: 09/17/2021 COMPARISON: 06/19/2021 HISTORY: 06/19/2021 TECHNIQUE: 2 views FINDINGS: Heart and mediastinum are normal. Lungs are clear. Diaphragm is normal. Bony thorax appears normal. IMPRESSION: Normal chest. No change.
[2021-09-17 03:17] VITALS: BP 125/72; PULSE 63; RESP 18
== END 2021-09-17 03:27 | disposition home or self-care (01) ==
LOC: EC 01:01
DX: S02.5XXA Fracture of tooth (traumatic), initial encounter for closed fracture (principal); R05.9 Cough, unspecified; J45.909 Unspecified asthma, uncomplicated; F17.200 Nicotine dependence, unspecified, uncomplicated; Z91.030 Bee allergy status; Z88.9 Allergy status to unspecified drugs, medicaments and biological substances; X58.XXXA Exposure to other specified factors, initial encounter
CPT/HCPCS: 71046; 99283

== ENCOUNTER 2021-09-18 18:20 | Inpatient (IN) | payer OTHER ==
[2021-09-18] MEDS ORDERED: LORazepam 2 MG/ML INJ IV STA (20:54)
[2021-09-18] MEDS ORDERED: SODIUM CHLORIDE 0.9% 1,000 ML IV STA ×2 (20:54→22:33)
[2021-09-18] MEDS ORDERED: ASPIRIN 81 MG PO STA (20:54)
[2021-09-18 21:24] LABS: Amphetamine Screen,Urine Detected (NotDetected); Barbiturate Screen,Urine Not Detected (NotDetected); Benzodiazepines Screen,Urine Not Detected (NotDetected); Cocaine Screen,Urine Not Detected (NotDetected); Methadone Screen, Urine Not Detected (NotDetected); Opiate Screen,Urine Not Detected (NotDetected); Oxycodone Screen, Urine Not Detected (NotDetected); Phencyclidine Screen,Urine Not Detected (NotDetected); Tricyclic Antidepressant,Urine Detected (NotDetected); Urn Cannabinoid Scrn Detected (NotDetected)
[2021-09-18 21:36] LABS: Basophils % (A) 0 %; Eosinophils # (A) 0.1 k/uL (0-0.7); Eosinophils % (A) 1 %; HGB 13.9 gm/dL (13.0-17.5); Lymphocytes # (A) 2.1 k/uL (1.0-4.8); Lymphocytes % (A) 21 %; MCH 32.1 pg (25.0-35.0); MCHC 32.2 g/dL (31.0-37.0); MCV 99.5 fL (80.0-100.0); Mean Platelet Volume 7.8; Monocytes # (A) 0.7 k/uL (0-1.0); Monocytes % (A) 8 %; Neutrophils # (A) 6.5 k/uL (1.3-7.7); Neutrophils % (A) 67 %; Platelet Count 261 k/uL (150-450); RBC 4.32 m/uL (4.30-5.90); RDW 13.8 % (11.5-15.5); WBC 9.8 k/uL (3.8-10.6)
[2021-09-18 21:45] LABS: Partial Thromboplastin Time 25.1 sec (22.0-30.0); Prothrombin Time 10.6 sec (9.0-12.0)
[2021-09-18 21:53] LABS: ALT 14 U/L (4-49); AST 19 U/L (17-59); African American GFR (CKD) >90 (>60 ml/min/1.73 sqM); Albumin 4.4 g/dL (3.5-5.0); Alkaline Phosphatase 64 U/L (38-126); Anion Gap 8 mmol/L; Blood Urea Nitrogen 11 mg/dL (9-20); Carbon Dioxide 23 mmol/L (22-30); Chloride 107 mmol/L (98-107); Creatine Kinase 134 U/L (55-170); Glucose 101 mg/dL (74-99); Non-African American GFR(CKD) >90 (>60 ml/min/1.73 sqM); Potassium 3.7 mmol/L (3.5-5.1); Sodium 138 mmol/L (137-145); Total Bilirubin 0.7 mg/dL (0.2-1.3); Total Protein 7.2 g/dL (6.3-8.2)
[2021-09-18] MEDS ORDERED: NITROGLYCERIN SL TABS 0.4 MG TAB SUBLINGUAL STA (22:17)
[2021-09-18] MEDS ORDERED: HEPARIN SODIUM 1,000 UN/ML (10ML VL) IV ONE (22:18)
[2021-09-18] MEDS: HEPARIN SOD,PORK IN 0.45% NACL 25,000 UNIT in 0.45% NACL 1 250ML.BAG IV SCH (22:26)
[2021-09-18] MEDS ORDERED: MORPHINE SULFATE 4 MG/ML SYRINGE IVP STA (22:33)
--- NOTE | 2021-09-18 22:35 | XR ---
EXAMINATION TYPE: XR chest 2V DATE OF EXAM: 09/18/2021 COMPARISON: Yesterday HISTORY: Chest pain TECHNIQUE: FINDINGS: Heart and mediastinum are normal. Lungs are clear. Diaphragm is normal. Bony thorax appears normal. IMPRESSION: Normal chest. No change.
[2021-09-18] MEDS ORDERED: NALOXONE 0.4 MG/ML 1 ML VIAL IV PRN (22:36)
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
[2021-09-19] MEDS ORDERED: LORazepam 2 MG/ML INJ IV STA
[2021-09-19] MEDS: MORPHINE SULFATE 4 MG/ML SYRINGE IV PRN ×2 (01:16→10:09)
[2021-09-19 05:07] LABS: Basophils % (A) 0 %; Eosinophils # (A) 0.1 k/uL (0-0.7); Eosinophils % (A) 2 %; HCT 37.7 % (39.0-53.0); HGB 12.6 gm/dL (13.0-17.5); Lymphocytes # (A) 2.4 k/uL (1.0-4.8); Lymphocytes % (A) 29 %; MCH 33.4 pg (25.0-35.0); MCHC 33.5 g/dL (31.0-37.0); MCV 99.6 fL (80.0-100.0); Mean Platelet Volume 8.1; Monocytes # (A) 0.6 k/uL (0-1.0); Monocytes % (A) 8 %; Neutrophils # (A) 4.8 k/uL (1.3-7.7); Neutrophils % (A) 57 %; Platelet Count 226 k/uL (150-450); RBC 3.79 m/uL (4.30-5.90); RDW 13.9 % (11.5-15.5); WBC 8.3 k/uL (3.8-10.6)
[2021-09-19 05:16] LABS: Partial Thromboplastin Time 38.4 sec (22.0-30.0)
[2021-09-19 05:23] LABS: African American GFR (CKD) >90 (>60 ml/min/1.73 sqM); Anion Gap 3 mmol/L; Blood Urea Nitrogen 11 mg/dL (9-20); Carbon Dioxide 26 mmol/L (22-30); Chloride 107 mmol/L (98-107); Glucose 91 mg/dL (74-99); Non-African American GFR(CKD) >90 (>60 ml/min/1.73 sqM); Potassium 3.9 mmol/L (3.5-5.1); Sodium 136 mmol/L (137-145)
[2021-09-19] MEDS: HEPARIN SODIUM 1,000 UN/ML (10ML VL) IV PRN ×2 (05:47→13:24)
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
[2021-09-19] MEDS: LORazepam 2 MG/ML INJ IV PRN ×2 (13:22→23:46)
[2021-09-19] MEDS: HEPARIN SOD,PORK IN 0.45% NACL 25,000 UNIT in 0.45% NACL 1 250ML.BAG IV SCH ×2 (13:29→22:33)
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
[2021-09-20] MEDS ORDERED: ACETAMINOPHEN TAB 325 MG TAB PO PRN (03:26)
[2021-09-20] MEDS: MORPHINE SULFATE 4 MG/ML SYRINGE IV PRN (11:27)
--- NOTE | 2021-09-20 11:46 | P.PN ---
Subjective Progress Note Date: 09/20/21 Principal diagnosis: Acute coronary syndrome The patient is a 31-year-old gentleman who was a smoker and also has history of drug abuse presented to the hospital with a chest discomfort and ruled in for acute coronary event. He was treated medically initially. This morning the patient started experiencing chest discomfort. The EKG showed about 1 mm systemic irrigation in V4 V5 and V6. With the ongoing chest discomfort and EKG changes and also abnormal cardiac enzymes the patient will benefit from coronary angiogram to rule out severe CAD/plaque rupture. He underwent an echo which I reviewed and that showed normal left ventricle systolic function with possible atrioseptal defect Objective - Vital Signs Vital signs: Vital Signs Temp 97.9 F 09/20/21 03:37 Pulse 68 09/20/21 03:37 Resp 18 09/20/21 03:37 BP 97/61 09/20/21 03:37 Pulse Ox 97 09/20/21 03:37 Intake & Output 09/19/21 09/20/21 09/20/21 18:59 06:59 18:59 Intake Total 198.799 652.699 240 Output Total 300 Balance 198.799 352.699 240 Intake: Intake, IV Titration 78.799 112.699 Amount Heparin Sod,Pork in 0.45% 78.799 112.699 NaCl 25,000 unit In 0.45 % NaCl 1 250ml.bag @ 12 UNITS/KG/HR 8.437 mls/hr IV .Q24H [facility] Rx#: [id number] Oral 120 540 240 Output: Urine 300 - Constitutional General appearance: Present: no acute distress - Respiratory Respiratory: bilateral: CTA - Cardiovascular Rhythm: regular Heart sounds: normal: S1, S2 - Labs CBC & Chem 7: 09/19/21 04:26 09/19/21 04:26 Labs: Abnormal Lab Results - Last 24 Hours (Table) 09/19/21 09/19/21 09/20/21 Range/Units 11:33 20:35 06:25 APTT 41.2 H 47.0 H 45.4 H (22.0-30.0) sec Assessment and Plan Assessment: Assessment #1 coronary event #2 history of drug abuse #3 ongoing chest discomfort #4 history of smoking Plan #1 start the patient on aspirin #2 start the patient on beta karen #3 proceed with coronary angiogram #4 follow-up with the patient
[2021-09-20] MEDS ORDERED: ATORVASTATIN 80 MG TAB PO STA (12:35)
[2021-09-20] MEDS ORDERED: ASPIRIN 325 MG TAB PO STA (12:35)
[2021-09-20] MEDS ORDERED: LIDOCAINE 1% INJ 10MG/ML (20 ML MDV) ONE (12:57)
[2021-09-20] MEDS ORDERED: VERAPAMIL 2.5 MG/ML 2 ML AMP ONE (12:58)
[2021-09-20] MEDS ORDERED: fentaNYL (PF) 50 MCG/ML 2 ML AMP ONE (12:58)
[2021-09-20] MEDS ORDERED: HEPARIN SODIUM 1,000 UN/ML (10ML VL) ONE (12:58)
[2021-09-20] MEDS ORDERED: MIDAZOLAM 2 MG/2 ML VIAL IV ONE (13:14)
[2021-09-20] MEDS ORDERED: fentaNYL (PF) 50 MCG/ML 2 ML AMP IV ONE (13:14)
[2021-09-20] MEDS ORDERED: LIDOCAINE 1% INJ 10MG/ML (20 ML MDV) SQ ONE (13:14)
[2021-09-20] MEDS ORDERED: VERAPAMIL SYRINGE (5 MG/10 ML) INTRAARTER ONE (13:15)
[2021-09-20] MEDS ORDERED: IV FLUID CONTINUATION 200 ML IV ONE (13:23)
[2021-09-20] MEDS ORDERED: HEPARIN SODIUM 1,000 UN/ML (10ML VL) IV ONE (13:23)
[2021-09-20] MEDS ORDERED: IOPAMIDOL-370 125ML BTL INJ ONE (13:26)
--- NOTE | 2021-09-20 15:03 | CC ---
CARDIAC CATHETERIZATION REPORT INDICATION: Acute joa-YO-shugeci elevation UT with persistent chest pain. PROCEDURE NOTE: After obtaining informed consent, left heart catheterization and coronary angiogram were performed via right radial artery using size 3.5 Kaden catheters. Left ventricular hemodynamics were obtained by the left coronary catheter. Patient tolerated the procedure well without any obvious immediate complications. Using a micropuncture needle, right radial artery access was obtained under fluoroscopic guidance. Catheters and wires were floated into the ascending aorta. Patient received 5 mg of verapamil and 3000 units of heparin as per protocol. Patient received moderate conscious sedation. Total sedation time was 15 minutes. FINDINGS: HEMODYNAMICS: Left ventricular end-diastolic pressure is 14 mm. There is no significant gradient across the aortic valve. LEFT VENTRICULOGRAM: Left ventriculogram was not performed. ANGIOGRAPHIC DATA: Right coronary artery. Right coronary artery is a normal-sized vessel and is free of stenosis. It is a dominant vessel and is free of stenosis. Left main coronary artery is a normal-sized vessel and is free of stenosis. It divides into left anterior descending coronary artery and circumflex coronary artery. LAD and its branches, circumflex coronary artery and its branches are free of significant stenosis. CONCLUSIONS: 1. Normal coronary arteries. 2. Normal left ventricular end-diastolic pressure. PLAN: Patient's myocardial infarction is probably related to the amphetamine use. I reviewed data with the patient and advised him to quit using drugs. MMODL / IJN: [id number] /
--- NOTE | 2021-09-20 20:57 | PN ---
PROGRESS NOTE DATE OF SERVICE: 09/19/2021 CHIEF COMPLAINT: Methamphetamine overdose with agitation and elevated troponin. HISTORY OF PRESENT ILLNESS: This gentleman is more calm and sedated now. He has been given Ativan. His second troponin is elevated. PHYSICAL EXAMINATION: His chest is clear. Cardiac exam is normal. Abdomen is soft, nontender. He is more awake and alert. He denies chest pain. IMPRESSION: 1. Methamphetamine overdose. 2. Agitation. 3. Depression. 4. Elevated troponin. PLAN: Await recommendations from Cardiology. MMODL / IJN: [id number] /
--- NOTE | 2021-09-20 20:57 | HP ---
HISTORY AND PHYSICAL CHIEF COMPLAINT: Agitation following multiple drug ingestion or abuse, including methamphetamine. HISTORY OF PRESENT ILLNESS: This gentleman came to the emergency room in a very agitated and confused state. He apparently had been snorting meth. He denied chest pain, but his cardiac enzymes were elevated. REVIEW OF SYSTEMS: Otherwise unremarkable or noncontributory. He was uncooperative at the time. Past medical history, family history, and personal and social histories were otherwise unremarkable and unchanged from his recent discharge from the psych unit. PHYSICAL EXAMINATION: Blood pressure is 142/96 with a pulse of 115, respirations of 35. He is afebrile. In general he appears to be slender and agitated. Skin color is normal. Skin is warm, dry. Head, ears, eyes, nose, mouth and throat are normal. Neck veins are not distended. Thyroid is not enlarged. Chest is clear to auscultation and percussion. The cardiac exam demonstrated tachycardia. The abdomen is flat, soft and nontender. Extremities are normal. Other than his agitation he was neurologically intact. He is admitted to the hospital with diagnosis of: 1. Methamphetamine overdose. 2. Elevated troponin. 3. History of major depression. 4. Possible suicidal personality. PLAN: 1. Bedrest. 2. IV fluids. 3. Ativan for sedation. 4. Repeat troponins. 5. Cardiology consult. MMLES / SARAYN: [id number] /
--- NOTE | 2021-09-20 21:09 | PN ---
PROGRESS NOTE DATE OF SERVICE: 09/20/2021 CHIEF COMPLAINT: 1. Depression. 2. Elevated troponin. 3. Methamphetamine overdose. HISTORY OF PRESENT ILLNESS: This gentleman went for his cardiac cath today, and the coronary arteries are open. He has been seen by Psychiatry, who wants him to stay in the hospital off his psych medications and under suicide watch. PHYSICAL EXAMINATION: Chest is clear. Cardiac exam is normal. Abdomen is soft, nontender. IMPRESSION: 1. Methamphetamine overdose. 2. Depression. PLAN: Await further guidance from Psychiatry. MMODL / IJN: [id number] /
[2021-09-21] MEDS: ASPIRIN 81 MG PO SCH (09:54)
[2021-09-21] MEDS: METOPROLOL SUCCINATE (ER) 25 MG TAB.ER.24H PO SCH (09:54)
--- NOTE | 2021-09-21 13:28 | P.PN ---
Progress Note - Text Progress Note Date: 09/21/21 Interval History: Patient was seen resting in bed comfortably and was directable and agreeable to speak with sign writer letterer or painter in his room. Currently, the patient does report that he has been feeling elevated anxiety but states that he feels much calmer now compared to when he first came in. He is not reporting any suicidal or homicidal ideation, intention, and/or plan at this time. He states that he had some suicidal thoughts but gave the piece of metal that he had on hand to the staff because he did not want to hurt himself. The patient reports no auditory or visual hallucinations. He denies any paranoia or other delusions. The patient states that he had a lapse in judgment and engage in methamphetamine use because of a female he has been staying with. He reports that he does not plan to go back to her home or use any methamphetamines. The patient reports that he was taking his medications and followed up with [facility] on his last discharge from our psychiatric unit. Mental Status Exam: General Appearance: Patient appears to be stated age is alert, directable, and cooperative. Behavior: Patient is calmly seated without any agitated behavior. Speech: Patient's speech is fluent and nonpressured. Mood/Affect: Mood is "feeling a little anxious but better." Affect appears to be euthymic to bright. Suicidality/Homicidality: Patient denies having any suicidal or homicidal ideation intent or plan. Perceptions: Patient denies any visual hallucinations and denies any auditory hallucinations Though content/process: There is no evidence of any delusional thought content and thought process is linear and goal-directed. Memory and concentration: AOX3, grossly intact for the purposes of this session Judgment and insight: Improving mildly Vital Signs Temp 97.7 F 09/21/21 08:00 Pulse 72 09/21/21 08:00 Resp 16 09/21/21 08:00 BP 107/69 09/21/21 08:00 Pulse Ox 99 09/21/21 08:00 Intake & Output 09/20/21 09/21/21 09/21/21 18:59 06:59 18:59 Intake Total 340 1140 Balance 340 1140 Intake: IV 100 Intake, IV Titration 300 Amount IV Fluid Continuation 200 300 ml @ 0 mls/hr IV .[facility] Rx#:[id number] Oral 240 840 Other: # Voids 2 4 Assessment Stimulant use disorder Borderline personality disorder Posttraumatic stress disorder Cannabis use disorder Plan: -Currently, the patient DOES NOT meet criteria for inpatient psychiatric hospitalization. He is currently not presenting with imminent risk of harm to self or others. He is not actively psychotic. He is at elevated risk for suicide compared to the general population due to nonmodifiable risk factors including previous attempts and family history of suicide. The patient also has a significant history of self-injurious behavior as result of his borderline personality disorder. He has not engaged in dialectical behavioral therapy and is coping skills and ego integrity are poor at this time. This is something to be addressed in the outpatient setting through intensive therapy. -Medications: Patient may continue his home medications of Zoloft 150 mg by mouth daily, Seroquel 200 mg by mouth at bedtime, lithium 600 mg by mouth at bedtime, and prazosin 2 mg by mouth at bedtime for management of his PTSD and bipolar disorder. These medications can be restarted in the outpatient setting or when deemed appropriate by the patient's cardiology team. The patient should not continue Adderall due to his history of stimulant abuse including the use of methamphetamines in the outpatient setting increasing his risk for cardiovascular events. -Continue one-to-one sitter at this time due to his history of self-injurious and impulsive and attention seeking suicidal behavior -Once medically stable, the patient is cleared psychiatrically for discharge as she is currently not presenting with imminent risk of harm to self or others despite a chronically elevated risk compared to the general population. He is most likely to benefit from outpatient follow-up with [facility]. It is recommended that prior to discharge, the ACT team is notified in order to coordinate a safety plan with the patient. -Psychiatry will continue to follow.
--- NOTE | 2021-09-21 15:30 | P.PN ---
Subjective 31-year-old gentleman with history of depression and prior suicidal ideation history of drug abuse comes in to Hospital secondary to drug use. Patient states that he has been using amphetamine that started on Monday evening went on until Monday evening. Following which she developed chest discomfort and has hallucinations and delusions. He comes to the ER complaining of chest pain. There is no prior cardiac history. Patient has used drugs in the past but has been drug free for the last several months and states that he has relapsed with this use. There is no family history of premature or sudden . He is also using marijuana. Patient had chest pain and the EKG showed about 1 mm systemic irrigation in V4 V5 and V6. With the ongoing chest discomfort and EKG changes and also abnormal cardiac enzymes the patient will benefit from coronary angiogram to rule out severe CAD/plaque rupture. He underwent an echo which I reviewed and that showed normal left ventricle systolic function with possible atrioseptal defect. Patient underwent cardiac catheterization 09/18/2021 which revealed normal coronary arteries. Normal left ventricular end-diastolic pressure. Patient stays at bedside, no distress. He denies any further chest pain. Denies any shortness of breath. He is hemodynamically stable. Cardiac catheterization radial site clean, dry, intact, 2+ peripheral pulses GENERAL: Well-appearing, well-nourished and in no acute distress. NECK: Supple without JVD or thyromegaly. LUNGS: Breath sounds clear to auscultation bilaterally. Respiration equal and unlabored. No wheezes, rales or rhonchi. HEART: Regular rate and rhythm without murmurs, rubs or gallops. S1 and S2 heard. EXTREMITIES: Normal range of motion, no edema. No clubbing or cyanosis. Peripheral pulses intact. ASSESSMENT Chest discomfort Status post cardiac catheterization with normal coronary arteries on 09/20/21 History of tobacco use Stimulant use disorder PLAN We will follow the patient as needed. No further changes from a cardiology perspective. Please reach out with any further questions or concerns. Nurse Practitioner note has been reviewed, I agree with a documented findings and plan of care. Patient was seen and examined. Objective - Vital Signs Vital signs: Vital Signs Temp 97.7 F 09/21/21 08:00 Pulse 72 09/21/21 08:00 Resp 16 09/21/21 08:00 BP 107/69 09/21/21 08:00 Pulse Ox 99 09/21/21 08:00 Intake & Output 09/20/21 09/21/21 09/21/21 18:59 06:59 18:59 Intake Total 340 1140 Balance 340 1140 Intake: IV 100 Intake, IV Titration 300 Amount IV Fluid Continuation 200 300 ml @ 0 mls/hr IV .[facility] Rx#:[id number] Oral 240 840 Other: # Voids 2 4 - Labs CBC & Chem 7: 09/19/21 04:26 09/19/21 04:26
--- NOTE | 2021-09-21 18:13 | PN ---
PROGRESS NOTE CHIEF COMPLAINT: Agitation and drug overdose. HISTORY OF PRESENT ILLNESS: This gentleman is still somewhat lethargic. He has not had any chest pain or shortness of breath. PHYSICAL EXAMINATION: Chest is clear. Cardiac exam is normal. Abdomen is soft, nontender. IMPRESSION: 1. Methamphetamine overdose. 2. Depression. PLAN: Await final recommendations from Psychiatry. MMODL / SARAYN: [id number] /
[2021-09-21] MEDS: MORPHINE SULFATE 4 MG/ML SYRINGE IV PRN (23:35)
[2021-09-21] MEDS: NITROGLYCERIN SL TABS 0.4 MG TAB SUBLINGUAL PRN ×2 (23:52→23:57)
[2021-09-22] MEDS: NITROGLYCERIN SL TABS 0.4 MG TAB SUBLINGUAL PRN (00:04)
[2021-09-22] MEDS: ASPIRIN 81 MG PO SCH (08:44)
[2021-09-22] MEDS: METOPROLOL SUCCINATE (ER) 25 MG TAB.ER.24H PO SCH (08:44)
--- NOTE | 2021-09-22 11:02 | ECHOF ---
Referral Reason:nstemi MEASUREMENTS -------- HEIGHT: 177.8 cm WEIGHT: 70.3 kg BP: IVSd: 0.8 cm (0.6 - 1.1) LVIDd: 4.4 cm (3.9 - 5.3) LVPWd: 0.9 cm (0.6 - 1.1) EDV(Teich): 88 ml IVSs: 1.7 cm LVIDs: 3.2 cm LVPWs: 0.9 cm %IVS Thck: 122 % ESV(Teich): 41 ml EF(Teich): 53 % %FS: 27 % SV(Teich): 47 ml IVC: 16.19 mm LALs A4C: 3.8 cm LAAs A4C: 12.3 cm LAESV A-L A4C: 34 ml LAESV MOD A4C: 29 ml LALs A2C: 4.0 cm LAAs A2C: 13.2 cm LAESV A-L A2C: 37 ml LAESV MOD A2C: 34 ml LAESV(A-L): 37 ml LAESV Index (A-L): 19.62 ml/m Ao Diam: 2.9 cm (2.0 - 3.7) LA Diam: 2.9 cm (2.7 - 3.8) AV Cusp: 1.7 cm (1.5 - 2.6) EPSS: 1.5 cm MV E Amandeep: 0.99 m/s MV DecT: 145 ms MV Dec Coffey: 6.9 m/s MV A Amandeep: 0.69 m/s MV E/A Ratio: 1.45 MV PHT: 42 ms MR Vmax: 1.37 m/s MR maxP.51 mmHg AV Vmax: 0.98 m/s AV maxP.86 mmHg TR Vmax: 1.49 m/s TR maxP.89 mmHg RAP: 5.00 mmHg RVSP: 13.89 mmHg MV EF SLOPE: 125.48 mm/s (70 - 150) MV EXCURSION: 15.79 mm (> 18.000) RV S Prime: 0.13 m/s TAPSE: 22.78 mm FINDINGS -------- This was a technically good study. The left ventricular size is normal. Left ventricular wall thickness is normal. Overall left vent ricular systolic function is mildly impaired with, an EF between 45 - 50 %. The diastolic filling p attern is normal for the age of the patient 10.73. The right ventricle is normal in size. The left atrial size is normal. Normal LA size by volume 22+/-6 ml/m2. The right atrial size is normal. Patent foramen ovale present with right to left shunt. Aneurysmal Interatrial septum. The aortic valve is trileaflet and appears structurally normal. The mitral valve is normal. Mild mitral regurgitation is present. The tricuspid valve appears structurally normal. Mild tricuspid regurgitation present. Right vent ricular systolic pressure is normal at < 35 mmHg. There is no pulmonic regurgitation present. The aortic root size is normal. Normal inferior vena cava with normal inspiratory collapse consistent with estimated right atrial pre ssure of 5 mmHg. There is no pericardial effusion. CONCLUSIONS -------- 1. The left ventricular size is normal. 2. Left ventricular wall thickness is normal. 3. Overall left ventricular systolic function is mildly impaired with, an EF between 45 - 50 %. 4. The diastolic filling pattern is normal for the age of the patient 10.73 5. Patent foramen ovale present with right to left shunt. 6. Aneurysmal Interatrial septum. 7. Mild mitral regurgitation is present. 8. Mild tricuspid regurgitation present. 9. There is no pericardial effusion. SCHOOL LIBRARIAN: Kalpana Yusuf [facility]
[2021-09-22 13:01] VITALS: BP 90/58; PULSE 63; RESP 12; TEMP 98.2
--- NOTE | 2021-09-22 13:31 | P.PN ---
Progress Note - Text Progress Note Date: 09/22/21 Interval History: Patient was seen resting in bed comfortably and was directable and agreeable to speak with proposal lead writer in his room. The patient is reporting that he is feeling better. He is currently not reporting any auditory or visual hallucinations. He reports no homicidal ideation, intention, or plan. The patient does admit to suicidal ideation however expresses no intention or plan at this time. He does acknowledge that this is a chronic condition for him due to his borderline personality disorder. He understands that appropriate and intensive outpatient therapy is what is necessary in order to overcome his chronic suicidality. He reports no issues regarding his sleep or his appetite. He is eager to restart his medications. He remains future oriented. Mental Status Exam: General Appearance: Patient appears to be stated age is alert, directable, and cooperative. Behavior: Patient is calmly seated without any agitated behavior. Patient last and smiles appropriately. Speech: Patient's speech is fluent and nonpressured. Mood/Affect: Mood is "feeling better." Affect appears to be euthymic to bright. Suicidality/Homicidality: Patient denies having any suicidal or homicidal ideation intent or plan. Perceptions: Patient denies any visual hallucinations and denies any auditory hallucinations Though content/process: There is no evidence of any delusional thought content and thought process is linear and goal-directed. Memory and concentration: AOX3, grossly intact for the purposes of this session Judgment and insight: Improving mildly Vital Signs Temp 98.2 F 09/22/21 12:00 Pulse 63 09/22/21 13:02 Resp 12 09/22/21 13:02 BP 90/58 09/22/21 12:00 Pulse Ox 97 09/22/21 12:00 Intake & Output 09/21/21 09/22/21 09/22/21 18:59 06:59 18:59 Intake Total 200 720 Balance 200 720 Intake: Intake, IV Titration 200 Amount IV Fluid Continuation 200 200 ml @ 0 mls/hr IV .[facility] Rx#:[id number] Oral 720 Other: Voiding Method Toilet Toilet # Voids 1 Assessment Stimulant use disorder Borderline personality disorder Posttraumatic stress disorder Cannabis use disorder Plan: -Currently, the patient DOES NOT meet criteria for inpatient psychiatric hospitalization. He is currently not presenting with imminent risk of harm to self or others. He is not actively psychotic. He is at elevated risk for suicide compared to the general population due to nonmodifiable risk factors including previous attempts and family history of suicide. The patient also has a significant history of self-injurious behavior as result of his borderline personality disorder. He has not engaged in dialectical behavioral therapy and is coping skills and ego integrity are poor at this time. This is something to be addressed in the outpatient setting through intensive therapy and the patient and his outpatient providers are made aware. -Medications: Patient may continue his home medications of Zoloft 150 mg by mouth daily, Seroquel 200 mg by mouth at bedtime, lithium 600 mg by mouth at bedtime, and prazosin 2 mg by mouth at bedtime for management of his PTSD and bipolar disorder. These medications can be restarted in the outpatient setting or when deemed appropriate by the patient's cardiology team. The patient should not continue Adderall due to his history of stimulant abuse including the use of methamphetamines in the outpatient setting increasing his risk for cardiovascular events. -May discontinue one-to-one sitter -The patient is cleared psychiatrically for discharge. It is recommended that the patient's ACT team is notified of his discharge. -Psychiatry will sign off at this time.
--- NOTE | 2021-09-23 15:59 | DS ---
DISCHARGE SUMMARY CHIEF COMPLAINT: Agitation, methamphetamine overdose. HISTORY OF PRESENT ILLNESS AND PHYSICAL EXAMINATION: Details of this man's history and physical can be found in the initial workup. LABORATORY STUDIES: While he was in the hospital he had laboratory studies, details of which can be found in the laboratory section of his chart. COURSE IN THE HOSPITAL: After admission he was placed on bedrest and started intravenous fluids and frequent monitoring of his vital signs, neurologic status, and he was placed on suicide watch. He gradually settled down and his pulse slowed. He stabilized and was doing well. He was seen by Psychiatry. It was felt that he could be safely released on September 22. He will go home on his usual activity, diet and medication, and he will be on metoprolol succinate 25 mg a day and be seen in the office in the next day or two. FINAL DIAGNOSIS: 1. Methamphetamine overdose. 2. Major depression. 3. Substance abuse. 4. Tachycardia. OPERATION: Cardiac catheterization. CONSULTATION: Cardiology. He is improved. DALIA / SARAYN: [id number] /
== END 2021-09-22 16:10 | disposition home or self-care (01) | DRG 917 ==
LOC: EC 18:20 → 3SCARD 22:36 → UNDODISIN 09-19 15:15
PROVIDERS: ADMIT Family Medicine; ATTEND Family Medicine
PROC: B2111ZZ Fluoroscopy of Multiple Coronary Arteries using Low Osmolar Contrast (ICD-10-PCS; 2021-09-20)
PROC: 4A023N7 Measurement of Cardiac Sampling and Pressure, Left Heart, Percutaneous Approach (ICD-10-PCS; principal; 2021-09-20 16:30)
DX: T43.622A Poisoning by amphetamines, intentional self-harm, initial encounter (principal); I21.4 Non-ST elevation (NSTEMI) myocardial infarction; Q21.1 Atrial septal defect; F12.10 Cannabis abuse, uncomplicated; F15.14 Other stimulant abuse with stimulant-induced mood disorder; F17.210 Nicotine dependence, cigarettes, uncomplicated; Z91.51 Personal history of suicidal behavior; F43.10 Post-traumatic stress disorder, unspecified; F60.3 Borderline personality disorder; J45.909 Unspecified asthma, uncomplicated; F31.9 Bipolar disorder, unspecified; Z56.0 Unemployment, unspecified; F41.9 Anxiety disorder, unspecified; F22 Delusional disorders; K21.9 Gastro-esophageal reflux disease without esophagitis; Z79.899 Other long term (current) drug therapy; Z83.3 Family history of diabetes mellitus; Z81.8 Family history of other mental and behavioral disorders; Z81.3 Family history of other psychoactive substance abuse and dependence; Z59.00 Homelessness unspecified; R29.90 Unspecified symptoms and signs involving the nervous system; Z88.8 Allergy status to other drugs, medicaments and biological substances; Z91.030 Bee allergy status
CPT/HCPCS: 36415; 71046; 80048; 80053; 80306; 82075; 82550; 83735; 84484; 85025; 85610; 85730; 93005; 93306; 93458; 96365; 96366; 96375; 96376; 99291

== ENCOUNTER 2021-09-23 11:53 | Emergency (ER) | payer OTHER ==
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
[2021-09-23 15:49] LABS: Basophils % (A) 1 %; Eosinophils # (A) 0.1 k/uL (0-0.7); Eosinophils % (A) 3 %; HCT 39.9 % (39.0-53.0); HGB 13.8 gm/dL (13.0-17.5); Lymphocytes # (A) 1.5 k/uL (1.0-4.8); Lymphocytes % (A) 28 %; MCH 33.1 pg (25.0-35.0); MCHC 34.6 g/dL (31.0-37.0); MCV 95.7 fL (80.0-100.0); Mean Platelet Volume 8.5; Monocytes # (A) 0.3 k/uL (0-1.0); Monocytes % (A) 6 %; Neutrophils % (A) 58 %; Platelet Count 246 k/uL (150-450); RBC 4.17 m/uL (4.30-5.90); RDW 13.5 % (11.5-15.5); WBC 5.2 k/uL (3.8-10.6)
[2021-09-23 15:56] LABS: Appearance,Urine Cloudy (Clear); Bacteria,Urine Rare /hpf; Bilirubin,Urine Negative (Negative); Blood,Urine Negative (Negative); Color,Urine Yellow; Glucose,Urine (UA) Negative (Negative); Hyaline Casts,Urine 1 /lpf (0-2); Ketones,Urine Negative (Negative); Leukocyte Esterase,Urine Negative (Negative); Mucus,Urine Occasional /hpf; Nitrite,Urine Negative (Negative); PH, Urine 5.5 (5.0-8.0); Protein,Urine Trace (Negative); RBC,Urine 1 /hpf (0-5); Specific Gravity,Urine 1.034 (1.001-1.035); Urobilinogen,Urine <2.0 mg/dL (<2.0); WBC,Urine 2 /hpf (0-5)
[2021-09-23 16:07] LABS: Amphetamine Screen,Urine Not Detected (NotDetected); Barbiturate Screen,Urine Not Detected (NotDetected); Benzodiazepines Screen,Urine Not Detected (NotDetected); Cocaine Screen,Urine Not Detected (NotDetected); Methadone Screen, Urine Not Detected (NotDetected); Opiate Screen,Urine Detected (NotDetected); Oxycodone Screen, Urine Not Detected (NotDetected); Phencyclidine Screen,Urine Not Detected (NotDetected); Tricyclic Antidepressant,Urine Not Detected (NotDetected); Urn Cannabinoid Scrn Detected (NotDetected)
[2021-09-23 16:08] LABS: ALT 27 U/L (4-49); AST 31 U/L (17-59); African American GFR (CKD) >90 (>60 ml/min/1.73 sqM); Alkaline Phosphatase 59 U/L (38-126); Anion Gap 7 mmol/L; Blood Urea Nitrogen 23 mg/dL (9-20); Calcium 8.4 mg/dL (8.4-10.2); Carbon Dioxide 25 mmol/L (22-30); Chloride 104 mmol/L (98-107); Glucose 131 mg/dL (74-99); Non-African American GFR(CKD) >90 (>60 ml/min/1.73 sqM); Potassium 3.7 mmol/L (3.5-5.1); Sodium 136 mmol/L (137-145); Total Bilirubin 0.6 mg/dL (0.2-1.3); Total Protein 6.6 g/dL (6.3-8.2)
[2021-09-24 08:50] VITALS: RESP 16
[2021-09-25 08:40] VITALS: BP 107/67; PULSE 79; TEMP 98
== END 2021-09-25 22:02 ==
LOC: EC 11:53
DX: R45.851 Suicidal ideations (principal); J45.909 Unspecified asthma, uncomplicated; F17.200 Nicotine dependence, unspecified, uncomplicated; Z20.822 Contact with and (suspected) exposure to COVID-19; Z88.9 Allergy status to unspecified drugs, medicaments and biological substances; Z91.030 Bee allergy status
CPT/HCPCS: 36415; 80053; 80178; 80306; 81001; 82075; 85025; 87635; 93005; 99285

== ENCOUNTER 2022-03-23 15:21 | Emergency (ER) | payer OTHER ==
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
[2022-03-23 17:00] LABS: Amphetamine Screen,Urine Not Detected (NotDetected); Barbiturate Screen,Urine Not Detected (NotDetected); Benzodiazepines Screen,Urine Not Detected (NotDetected); Cocaine Screen,Urine Not Detected (NotDetected); Methadone Screen, Urine Not Detected (NotDetected); Opiate Screen,Urine Not Detected (NotDetected); Oxycodone Screen, Urine Not Detected (NotDetected); Phencyclidine Screen,Urine Not Detected (NotDetected); Tricyclic Antidepressant,Urine Not Detected (NotDetected); Urn Cannabinoid Scrn Detected (NotDetected)
[2022-03-23 18:25] LABS: Basophils % (A) 1 %; Eosinophils # (A) 0.4 k/uL (0-0.7); Eosinophils % (A) 6 %; HGB 14.1 gm/dL (13.0-17.5); Lymphocytes # (A) 2.4 k/uL (1.0-4.8); Lymphocytes % (A) 36 %; MCH 31.9 pg (25.0-35.0); MCHC 34.3 g/dL (31.0-37.0); MCV 93.2 fL (80.0-100.0); Monocytes # (A) 0.4 k/uL (0-1.0); Monocytes % (A) 6 %; Neutrophils # (A) 3.2 k/uL (1.3-7.7); Neutrophils % (A) 49 %; Platelet Count 250 k/uL (150-450); RBC 4.41 m/uL (4.30-5.90); RDW 12.4 % (11.5-15.5); WBC 6.5 k/uL (3.8-10.6)
[2022-03-23 19:11] LABS: ALT 10 U/L (4-49); AST 17 U/L (17-59); African American GFR (CKD) >90 (>60 ml/min/1.73 sqM); Albumin 3.8 g/dL (3.5-5.0); Alkaline Phosphatase 76 U/L (38-126); Anion Gap 11 mmol/L; Blood Urea Nitrogen 12 mg/dL (9-20); Calcium 8.5 mg/dL (8.4-10.2); Carbon Dioxide 26 mmol/L (22-30); Chloride 103 mmol/L (98-107); Glucose 81 mg/dL (74-99); Non-African American GFR(CKD) >90 (>60 ml/min/1.73 sqM); Sodium 140 mmol/L (137-145); Total Bilirubin 0.3 mg/dL (0.2-1.3); Total Protein 6.1 g/dL (6.3-8.2)
[2022-03-24 12:10] VITALS: BP 120/73; PULSE 65; RESP 18; TEMP 97.8
== END 2022-03-24 12:09 ==
LOC: EC 15:21
DX: F32.A Depression, unspecified (principal); R45.851 Suicidal ideations; F12.10 Cannabis abuse, uncomplicated; J45.909 Unspecified asthma, uncomplicated; F17.200 Nicotine dependence, unspecified, uncomplicated; Z20.822 Contact with and (suspected) exposure to COVID-19; Z91.030 Bee allergy status; Z88.9 Allergy status to unspecified drugs, medicaments and biological substances
CPT/HCPCS: 36415; 80053; 80306; 82075; 85025; 87635; 99285

== ENCOUNTER 2022-05-28 17:38 | Inpatient (IN) | payer MEDICAID, OTHER ==
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
[2022-05-28 18:51] LABS: Amphetamine Screen,Urine Not Detected (NotDetected); Barbiturate Screen,Urine Not Detected (NotDetected); Benzodiazepines Screen,Urine Not Detected (NotDetected); Cocaine Screen,Urine Not Detected (NotDetected); Methadone Screen, Urine Not Detected (NotDetected); Opiate Screen,Urine Not Detected (NotDetected); Oxycodone Screen, Urine Not Detected (NotDetected); Phencyclidine Screen,Urine Not Detected (NotDetected); Tricyclic Antidepressant,Urine Not Detected (NotDetected); Urn Cannabinoid Scrn Detected (NotDetected)
[2022-05-28] MEDS ORDERED: LORazepam 1 MG TAB PO PRN (22:50)
[2022-05-28] MEDS ORDERED: MAG HYDROX/AL HYDROX/SIMETH 355 ML BOTTLE PO PRN (22:50)
[2022-05-28] MEDS ORDERED: MAGNESIUM HYDROXIDE 2,400 MG/10 ML CUP PO PRN (22:50)
[2022-05-28] MEDS ORDERED: HALOPERIDOL LACTATE 5 MG/ML 1 ML VIAL IM PRN (22:50)
[2022-05-28] MEDS ORDERED: LORazepam 1 MG/0.5 ML VIAL IM PRN (22:55)
[2022-05-28] MEDS ORDERED: haloperidoL 5 MG TAB PO PRN (22:56)
[2022-05-28 23:45] LABS: Appearance,Urine Clear (Clear); Bilirubin,Urine Negative (Negative); Blood,Urine Negative (Negative); Color,Urine Light Yellow; Glucose,Urine (UA) Negative (Negative); Ketones,Urine Negative (Negative); Leukocyte Esterase,Urine Negative (Negative); Nitrite,Urine Negative (Negative); PH, Urine 5.5 (5.0-8.0); Protein,Urine Negative (Negative); Specific Gravity,Urine 1.019 (1.001-1.035); Urobilinogen,Urine <2.0 mg/dL (<2.0)
[2022-05-29 07:15] LABS: Basophils % (A) 1 %; Eosinophils # (A) 0.2 k/uL (0-0.7); Eosinophils % (A) 4 %; HCT 39.3 % (39.0-53.0); HGB 13.6 gm/dL (13.0-17.5); Lymphocytes # (A) 1.4 k/uL (1.0-4.8); Lymphocytes % (A) 34 %; MCH 31.8 pg (25.0-35.0); MCHC 34.7 g/dL (31.0-37.0); MCV 91.5 fL (80.0-100.0); Mean Platelet Volume 8.1; Monocytes # (A) 0.4 k/uL (0-1.0); Monocytes % (A) 9 %; Neutrophils # (A) 2.1 k/uL (1.3-7.7); Neutrophils % (A) 49 %; Platelet Count 221 k/uL (150-450); RDW 11.9 % (11.5-15.5); WBC 4.2 k/uL (3.8-10.6)
[2022-05-29 07:25] LABS: ALT 14 U/L (4-49); AST 19 U/L (17-59); African American GFR (CKD) >90 (>60 ml/min/1.73 sqM); Albumin 4.2 g/dL (3.5-5.0); Alkaline Phosphatase 66 U/L (38-126); Anion Gap 3 mmol/L; Blood Urea Nitrogen 18 mg/dL (9-20); Calcium 8.5 mg/dL (8.4-10.2); Carbon Dioxide 27 mmol/L (22-30); Chloride 106 mmol/L (98-107); Glucose 94 mg/dL (74-99); Non-African American GFR(CKD) >90 (>60 ml/min/1.73 sqM); Potassium 4.5 mmol/L (3.5-5.1); Sodium 136 mmol/L (137-145); Total Bilirubin 0.8 mg/dL (0.2-1.3); Total Protein 6.5 g/dL (6.3-8.2)
[2022-05-29] MEDS: hydrOXYzine pamoate 25 MG CAP PO SCH ×3 (08:42→21:08)
[2022-05-29] MEDS: NICOTINE 14MG/24HR PATCH TRANSDERM SCH (08:42)
[2022-05-29 12:27] LABS: Chol/HDL Ratio 5.03 Ratio; LDL Cholesterol,Calculated 136.1 mg/dL (0.0-131.0)
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
[2022-05-29] MEDS ORDERED: QUEtiapine 400 MG TAB PO SCH (21:00)
[2022-05-29] MEDS ORDERED: MELATONIN 5 MG TABLET PO SCH (21:00)
[2022-05-29] MEDS ORDERED: ESCITALOPRAM 10 MG TAB PO SCH (21:00)
[2022-05-29] MEDS: QUEtiapine 100 MG TAB PO SCH (21:07)
--- NOTE | 2022-05-29 22:43 | P.PN ---
Progress Note - Text Progress Note Date: 05/29/22 Attempted to see the patient at . The patient refused to be seen or be evaluated
[2022-05-30] MEDS: hydrOXYzine pamoate 25 MG CAP PO SCH ×3 (08:27→20:37)
[2022-05-30] MEDS: NICOTINE 14MG/24HR PATCH TRANSDERM SCH (08:28)
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
[2022-05-30] MEDS: MELATONIN 5 MG TABLET PO SCH (20:35)
[2022-05-30] MEDS: QUEtiapine 100 MG TAB PO SCH (20:36)
[2022-05-30] MEDS ORDERED: DOXEPIN 10 MG CAP PO SCH (21:00)
[2022-05-31] MEDS: hydrOXYzine pamoate 25 MG CAP PO SCH ×3 (09:27→20:52)
[2022-05-31] MEDS: NICOTINE 14MG/24HR PATCH TRANSDERM SCH (09:27)
[2022-05-31] MEDS: ESCITALOPRAM 20 MG TAB PO SCH (09:27)
[2022-05-31] MEDS: ARIPiprazole 15 MG TAB PO SCH (11:55)
--- NOTE | 2022-05-31 12:11 | P.PN ---
Progress Note - Text Progress Note Date: 05/31/22 Interval History: Patient was seen wandering the hallways and was directable and agreeable to leila shepard with global technical writer in the office. Patient states that he is going to groups and tending to cooperate. He appears to have a mild improvement in his impulse control however continues to be fairly concrete during interview. He states that he is still having a "homeless problem". He states that he has to wait until June 09 to get his Social Security check so that he will be able to stay somewhere. He claims that he is tolerating the medications fairly well and is depression and mood and anxiety have been improving. He claims that he did not sleep well last night only about 3 hours and then woke up. He is agreeable to have his doxepin increased. Claims that his appetite is fair. At this time patient denies any homical or suicidal ideations, intent or plan. Patient denies any auditory, visual hallucinations and denies any paranoia or delusions. Patient denies any side effects from the medications and has been compliant with meds. Mental Status Exam: General Appearance: Patient appears to be stated age is alert, directable, and attempts to cooperate. Patient appears to have fair hygiene and grooming. Behavior: Patient is seated without any agitated behavior. Speech: Patient's speech is fluent and nonpressured. Mood/Affect: Patient reports their mood is improving mildly, affect is congruent and constricted. Suicidality/Homicidality: Patient denies having any homicidal ideation intent or plan. Denies suicidal ideations, no intent or plan. Perceptions: Patient denies any visual hallucinations and denies any auditory hallucinations Though content/process: There is no evidence of any delusional thought content and thought process is linear and goal-directed. Memory and concentration: AOX3, grossly intact for the purposes of this session. Judgment and insight: Improving mildly. IMPRESSIONS: Schizoaffective disorder, depressive type Borderline personality disorder Posttraumatic stress disorder Cannabis use disorder Plan: -Patient continues to meet criteria for inpatient psychiatric admission for symptom stabilization and safety. Patient has signed adult voluntary form and medication consent and was placed in patient's chart. -Medications: Next dose of Aristada next due 06/08/22 given at [facility]. Continue with Seroquel 300 mg daily at bedtime for mood stabilization/insomnia. decrease Abilify 15 mg daily for mood stabilization and will attempt to cut down. c ontinue Lexapro to 20 mg daily at bedtime for depression/anxiety. increase doxepin 20 mg daily at bedtime for sleep/mood. -When necessary Ativan and Haldol for agitation/aggression. -NRT - nicotine patch -SW on board for discharge planning. Encouraged the patient to participate in milieu. Patient is currently homeless at this time. Patient will need LIMA given as well through [facility]. Will see if it is possible to give LIMA at the hospital prior to d.c
[2022-05-31] MEDS: QUEtiapine 100 MG TAB PO SCH (20:52)
[2022-05-31] MEDS: MELATONIN 5 MG TABLET PO SCH (20:52)
[2022-05-31] MEDS ORDERED: DOXEPIN 10 MG CAP PO SCH (21:00)
[2022-06-01] MEDS: ARIPiprazole 15 MG TAB PO SCH (09:10)
[2022-06-01] MEDS: ESCITALOPRAM 20 MG TAB PO SCH (09:10)
[2022-06-01] MEDS: hydrOXYzine pamoate 25 MG CAP PO SCH ×3 (09:10→20:29)
[2022-06-01] MEDS: NICOTINE 14MG/24HR PATCH TRANSDERM SCH (09:10)
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
[2022-06-01] MEDS ORDERED: LORazepam 2 MG/ML INJ IM PRN (18:04)
[2022-06-01] MEDS: MELATONIN 5 MG TABLET PO SCH (20:29)
[2022-06-01] MEDS: DOXEPIN 25 MG CAP PO SCH (20:30)
[2022-06-01] MEDS: QUEtiapine 100 MG TAB PO SCH (20:30)
[2022-06-02] MEDS: NICOTINE 14MG/24HR PATCH TRANSDERM SCH (08:43)
[2022-06-02] MEDS: ESCITALOPRAM 20 MG TAB PO SCH (08:44)
[2022-06-02] MEDS: ARIPiprazole 15 MG TAB PO SCH (08:44)
[2022-06-02] MEDS: hydrOXYzine pamoate 25 MG CAP PO SCH ×3 (08:44→20:36)
--- NOTE | 2022-06-02 11:09 | P.PN ---
Progress Note - Text Progress Note Date: 06/02/22 Interval History: Patient was seen wandering the hallways and was directable and agreeable to leila shepard with radio script writer in the office. Patient was seen speaking to a female patient and the hallways. She appears to be more directable today during conversation was appropriate. He states that he is doing a bit better today. He claims that he got a roommate last night and had disrupted sleep. He states that he is still having difficulties falling asleep and maintaining it and only got about 3 hours last night. He states that his mood and appetite and also he is showering as well. We spoke about the long-acting injection which she is okay with today. He states that he is going to groups and attempting to participate. At this time patient denies any homical ideations, intent or plan. Patient denies any auditory, visual hallucinations and denies any paranoia or delusions. Patient denies any side effects from the medications and has been compliant with meds. Mental Status Exam: General Appearance: Patient appears to be stated age is alert, directable, and attempts to cooperate. Patient appears to have fair hygiene and grooming. Behavior: Patient is seated without any agitated behavior. Directable. Speech: Patient's speech is fluent and nonpressured. Mood/Affect: Patient reports their mood is improving mildly, affect is congruent and constricted. Suicidality/Homicidality: Patient denies having any homicidal ideation intent or plan. Admits to mild suicidal ideations this morning, no intent or plan. Perceptions: Patient denies any visual hallucinations and denies any auditory hallucinations Though content/process: There is no evidence of any delusional thought content and thought process is linear and goal-directed. Memory and concentration: AOX3, grossly intact for the purposes of this session. Judgment and insight: Improving mildly. IMPRESSIONS: Schizoaffective disorder, depressive type Borderline personality disorder Posttraumatic stress disorder Cannabis use disorder Plan: -Patient continues to meet criteria for inpatient psychiatric admission for symptom stabilization and safety. Patient has signed adult voluntary form and medication consent and was placed in patient's chart. -Medications: Next dose of Aristada next due 06/08/22 given at [facility] however will communicate with [facility] to possibly give LIMA this weekend prior to discharge, currently awaiting [facility] pharmacy to fill this and bring to the hospital. increase Seroquel 400 mg daily at bedtime for mood stabilization/insomnia. decrease Abilify 10 mg daily for mood stabilization and will attempt to cut down. continue Lexapro 20 mg daily at bedtime for depression/anxiety. doxepin 25 mg daily at bedtime for sleep/mood. -When necessary Ativan and Haldol for agitation/aggression. -NRT - nicotine patch -SW on board for discharge planning. Encouraged the patient to participate in milieu. Patient is currently homeless at this time. Patient will need LIMA, currently awaiting this to be filled by [facility] and brought to the hospital. Will also inquire if patient would qualify for crisis housing.
[2022-06-02] MEDS: NICOTINE GUM (POLACRILEX) 2 MG GUM BUCCAL PRN ×2 (18:10→20:39)
[2022-06-02] MEDS: MELATONIN 5 MG TABLET PO SCH (20:36)
[2022-06-02] MEDS: QUEtiapine 400 MG TAB PO SCH (20:36)
[2022-06-02] MEDS: DOXEPIN 25 MG CAP PO SCH (20:36)
[2022-06-03] MEDS: hydrOXYzine pamoate 25 MG CAP PO SCH ×3 (09:00→20:41)
[2022-06-03] MEDS: ESCITALOPRAM 20 MG TAB PO SCH (09:01)
[2022-06-03] MEDS: ARIPiprazole 10 MG TAB PO SCH (09:01)
[2022-06-03] MEDS: NICOTINE 14MG/24HR PATCH TRANSDERM SCH (09:01)
[2022-06-03] MEDS: NICOTINE GUM (POLACRILEX) 2 MG GUM BUCCAL PRN ×2 (09:03→20:43)
--- NOTE | 2022-06-03 11:09 | P.PN ---
Progress Note - Text Progress Note Date: 06/03/22 Interval History: Patient was seen lying in bed today sleeping this morning and was directable and agreeable to speak with freelance writer. Patient claims that he is doing "all right" and states that he slept better last night. He claims that the Seroquel has been helping him. We continued to speak about his long-acting injection which she is okay with receiving. He states that he is going to some groups and trying to participate. States that his mood is "okay" denying any anxiety at this time. States that he is eating well. At this time patient denies any homical or suicidal ideations, intent or plan. Patient denies any auditory, visual hallucinations and denies any paranoia or delusions. Patient denies any side effects from the medications and has been compliant with meds. Mental Status Exam: General Appearance: Patient appears to be stated age is alert, directable, and attempts to cooperate. Patient appears to have fair hygiene and grooming. Behavior: Patient is seated without any agitated behavior. Directable. Speech: Patient's speech is fluent and nonpressured. Mood/Affect: Patient reports their mood is improving mildly, affect is congruent and constricted. Suicidality/Homicidality: Patient denies having any homicidal ideation intent or plan. Denies any suicidal ideations, no intent or plan. Perceptions: Patient denies any visual hallucinations and denies any auditory hallucinations Though content/process: There is no evidence of any delusional thought content and thought process is linear and goal-directed. Memory and concentration: AOX3, grossly intact for the purposes of this session. Judgment and insight: Improving mildly. IMPRESSIONS: Schizoaffective disorder, depressive type Borderline personality disorder Posttraumatic stress disorder Cannabis use disorder Plan: -Patient continues to meet criteria for inpatient psychiatric admission for symptom stabilization and safety. Patient has signed adult voluntary form and medication consent and was placed in patient's chart. -Medications: Next dose of Aristada next due 06/08/[address] [facility] however will attempt to possibly give LIMA this weekend or ealry next week prior to discharge, currently awaiting [facility] pharmacy to fill this and bring to the hospital. continue Seroquel 400 mg daily at bedtime for mood stabilization/insomnia. continue Abilify 10 mg daily for mood stabilization and will attempt to cut down after patient receives aristada. continue Lexapro 20 mg daily at bedtime for depressi on/anxiety. doxepin 25 mg daily at bedtime for sleep/mood. -When necessary Ativan and Haldol for agitation/aggression. -NRT - nicotine patch - on board for discharge planning. Encouraged the patient to participate in milieu. Patient is currently homeless at this time. Patient will need LIMA, currently awaiting this to be filled by [facility] and brought to the hospital. Will also inquire if patient would qualify for crisis housing. likely discharge early next week.
[2022-06-03] MEDS: ACETAMINOPHEN TAB 325 MG TAB PO PRN (11:58)
[2022-06-03] MEDS: DOXEPIN 25 MG CAP PO SCH (20:41)
[2022-06-03] MEDS: MELATONIN 5 MG TABLET PO SCH (20:42)
[2022-06-03] MEDS: QUEtiapine 400 MG TAB PO SCH (20:42)
[2022-06-04] MEDS: ARIPiprazole 10 MG TAB PO SCH (08:14)
[2022-06-04] MEDS: hydrOXYzine pamoate 25 MG CAP PO SCH ×3 (08:14→20:58)
[2022-06-04] MEDS: ESCITALOPRAM 20 MG TAB PO SCH (08:15)
[2022-06-04] MEDS: NICOTINE 14MG/24HR PATCH TRANSDERM SCH ×2 (08:15→11:51)
[2022-06-04] MEDS: NICOTINE GUM (POLACRILEX) 2 MG GUM BUCCAL PRN ×3 (08:16→15:56)
--- NOTE | 2022-06-04 15:10 | P.PN ---
Progress Note - Text Progress Note Date: 06/04/22 Interval History: Patient was seen going on a walk in the morning and was agreeable with speaking with this provider. Patient claims that he is doing "all right" and that his mood has been improving. He is agreeable with getting Aristada as soon as it is available. He states that he is going to some groups and trying to participate. He reports sleeping well with the current medications including the doxepin. States that he is eating well. At this time patient denies any homicidal or amos cidal ideations, intent or plan. Patient denies any auditory, visual hallucinations and denies any paranoia or delusions. Patient denies any side effects from the medications and has been compliant with meds. Mental Status Exam: General Appearance: Patient appears to be stated age is alert, directable, and attempts to cooperate. Patient appears to have fair hygiene and grooming. Behavior: Patient is seated without any agitated behavior. Redirectable. Speech: Patient's speech is fluent and nonpressured. Mood/Affect: Patient reports their mood is improving mildly, affect is congruent and constricted. Suicidality/Homicidality: Patient denies having any homicidal ideation intent or plan. Denies any suicidal ideations, no intent or plan. Perceptions: Patient denies any visual hallucinations and denies any auditory hallucinations Though content/process: There is no evidence of any delusional thought content and thought process is linear and goal-directed. Memory and concentration: AOX3, grossly intact for the purposes of this session. Judgment and insight: Improving mildly. IMPRESSIONS: Schizoaffective disorder, depressive type Borderline personality disorder Posttraumatic stress disorder Cannabis use disorder Plan: -Patient continues to meet criteria for inpatient psychiatric admission for symptom stabilization and safety. Patient has signed adult voluntary form and medication consent and was placed in patient's chart. -Medications: Next dose of Aristada next due 06/08/[address] [facility] however will attempt to possibly give LIMA this weekend or ealry next week prior to discharge, currently awaiting [facility] pharmacy to fill this and bring to the hospital. continue Seroquel 400 mg daily at bedtime for mood stabilization/insomnia. continue Abilify 10 mg daily for mood stabilization and will attempt to cut down after patient receives aristada. continue Lexapro 20 mg daily at bedtime for depression/anxiety. doxepin 25 mg daily at bedtime for sleep/mood. -When necessary Ativan and Haldol for agitation/aggression. -NRT - nicotine patch -SW on board for discharge planning. Encouraged the patient to participate in milieu. Patient is currently homeless at this time. Patient will need LIMA, currently awaiting this to be filled by [facility] and brought to the hospital. Will also inquire if patient would qualify for crisis housing. likely discharge early next week.
[2022-06-04] MEDS: ACETAMINOPHEN TAB 325 MG TAB PO PRN (15:56)
[2022-06-04] MEDS: DOXEPIN 25 MG CAP PO SCH (20:57)
[2022-06-04] MEDS: MELATONIN 5 MG TABLET PO SCH (20:57)
[2022-06-04] MEDS: QUEtiapine 400 MG TAB PO SCH (20:58)
[2022-06-05] MEDS: ARIPiprazole 10 MG TAB PO SCH (08:33)
[2022-06-05] MEDS: hydrOXYzine pamoate 25 MG CAP PO SCH ×3 (08:33→19:41)
[2022-06-05] MEDS: ESCITALOPRAM 20 MG TAB PO SCH (08:33)
[2022-06-05] MEDS: NICOTINE 14MG/24HR PATCH TRANSDERM SCH (08:39)
--- NOTE | 2022-06-05 19:04 | P.PN ---
Progress Note - Text Progress Note Date: 06/05/22 Interval History: Patient was seen going on a walk in the morning and was agreeable with speaking with this provider. Patient claims that he is doing "great" and that his mood has been improving. He is agreeable with getting Aristada as soon as it is available. He states that he is going to some groups and trying to participate. He reports sleeping well with the current medications including the doxepin. States that he is eating well. At this time patient denies any homicidal or suicidal ideations, intent or plan. Patient denies any auditory, visual hallucinations and denies any paranoia or delusions. Patient denies any side effects from the medications and has been compliant with meds. Mental Status Exam: General Appearance: Patient appears to be stated age is alert, directable, and attempts to cooperate. Patient appears to have fair hygiene and grooming. Behavior: Patient is seated without any agitated behavior. Redirectable. Speech: Patient's speech is fluent and nonpressured. Mood/Affect: Patient reports their mood is improving mildly, affect is congruent and constricted. Suicidality/Homicidality: Patient denies having any homicidal ideation intent or plan. Denies any suicidal ideations, no intent or plan. Perceptions: Patient denies any visual hallucinations and denies any auditory hallucinations Though content/process: There is no evidence of any delusional thought content and thought process is linear and goal-directed. Memory and concentration: AOX3, grossly intact for the purposes of this session. Judgment and insight: Improving mildly. IMPRESSIONS: Schizoaffective disorder, depressive type Borderline personality disorder Posttraumatic stress disorder Cannabis use disorder Plan: -Patient continues to meet criteria for inpatient psychiatric admission for symptom stabilization and safety. Patient has signed adult voluntary form and medication consent and was placed in patient's chart. -Medications: Next dose of Aristada next due 06/08/22 given at [facility] however will attempt to possibly give LIMA early next week prior to discharge, currently awaiting [facility] pharmacy to fill this and bring to the hospital. Continue Seroquel 400 mg daily at bedtime for mood stabilization/insomnia. continue Abilify 10 mg daily for mood stabilization and will attempt to cut down after patient receives aristada. continue Lexapro 20 mg daily at bedtime for depression/anxiety. doxepin 25 mg daily at bedtime for sleep/mood. -When necessary Ativan and Haldol for agitation/aggression. -NRT - nicotine patch -SW on board for discharge planning. Encouraged the patient to participate in milieu. Patient is currently homeless at this time. Patient will need LIMA, currently awaiting this to be filled by [facility] and brought to the hospital. Will also inquire if patient would qualify for crisis housing. likely discharge early next week.
[2022-06-05] MEDS: MELATONIN 5 MG TABLET PO SCH (19:41)
[2022-06-05] MEDS: QUEtiapine 400 MG TAB PO SCH (19:41)
[2022-06-05] MEDS: DOXEPIN 25 MG CAP PO SCH (19:41)
[2022-06-06] MEDS: NICOTINE GUM (POLACRILEX) 2 MG GUM BUCCAL PRN ×2 (07:47→18:11)
[2022-06-06] MEDS: hydrOXYzine pamoate 25 MG CAP PO SCH ×3 (07:47→20:36)
[2022-06-06] MEDS: NICOTINE 14MG/24HR PATCH TRANSDERM SCH (07:47)
[2022-06-06] MEDS: ESCITALOPRAM 20 MG TAB PO SCH (07:48)
[2022-06-06] MEDS: ARIPiprazole 10 MG TAB PO SCH (07:48)
--- NOTE | 2022-06-06 10:12 | P.PN ---
Progress Note - Text Progress Note Date: 06/06/22 Interval History: Patient was seen wandering the hallways this morning and was directable and ag reeable to speak with specifications writer. Patient appears to have fair hygiene and grooming today. He states that he is going to some groups. He states that his sleep has been "on and off" throughout the weekend whenever claims that his energy level is fair at this time. He states that he is interacting with other patients on the unit. He was agreeable to have the long-acting injection given to him today . He continues to state that he does not know where he is going to go once he gets his Social Security check. He claims that his mood and anxiety (improving. He wants to remain on same medications. He claims his appetite is fair. At this time patient denies any homical or suicidal ideations, intent or plan. Patient denies any auditory, visual hallucinations and denies any paranoia or delusions. Patient denies any side effects from the medications and has been compliant with meds. Mental Status Exam: General Appearance: Patient appears to be stated age is alert, directable, and attempts to cooperate. Patient appears to have fair hygiene and grooming. Behavior: Patient is seated without any agitated behavior. Directable. Speech: Patient's speech is fluent and nonpressured. Mood/Affect: Patient reports their mood is improving mildly, affect is congruent and constricted. Suicidality/Homicidality: Patient denies having any homicidal ideation intent or plan. Denies any suicidal ideations, no intent or plan. Perceptions: Patient denies any visual hallucinations and denies any auditory hallucinations Though content/process: There is no evidence of any delusional thought content and thought process is linear and goal-directed. Memory and concentration: AOX3, grossly intact for the purposes of this session. Judgment and insight: Improving mildly. IMPRESSIONS: Schizoaffective disorder, depressive type Borderline personality disorder Posttraumatic stress disorder Cannabis use disorder Plan: -Patient continues to meet criteria for inpatient psychiatric admission for symptom stabilization and safety. Patient has signed adult voluntary form and medication consent and was placed in patient's chart. -Medications: Next dose of Aristada next due 06/08/22 given at [facility] however will attempt to possibly give LIMA today if it is filled from [facility]. continue Seroquel 400 mg daily at bedtime for mood stabilization/insomnia. continue Abilify 10 mg daily for mood stabilization and will attempt to cut down after patient receives aristada. continue Lexapro 20 mg daily at bedtime for depression/anxiety. doxepin 25 mg daily at bedtime for sleep/mood. -When necessary Ativan and Haldol for agitation/aggression. -NRT - nicotine patch - on board for discharge planning. Encouraged the patient to participate in milieu. Patient is currently homeless at this time. Patient will need LIMA, currently awaiting this to be filled by [facility] and brought to the hospital. Will also inquire if patient would qualify for crisis housing
[2022-06-06] MEDS ORDERED: ARIPIPRAZOLE LAUROXIL IM SCH (12:00)
[2022-06-06] MEDS: ACETAMINOPHEN TAB 325 MG TAB PO PRN (14:59)
[2022-06-06] MEDS: QUEtiapine 400 MG TAB PO SCH (20:36)
[2022-06-06] MEDS: MELATONIN 5 MG TABLET PO SCH (20:36)
[2022-06-06] MEDS: DOXEPIN 25 MG CAP PO SCH (20:36)
[2022-06-07 06:45] VITALS: BP 108/60; PULSE 61; RESP 18; TEMP 98.2
[2022-06-07] MEDS: NICOTINE 14MG/24HR PATCH TRANSDERM SCH (07:55)
[2022-06-07] MEDS: ACETAMINOPHEN TAB 325 MG TAB PO PRN (07:56)
[2022-06-07] MEDS: ESCITALOPRAM 20 MG TAB PO SCH (07:57)
[2022-06-07] MEDS: hydrOXYzine pamoate 25 MG CAP PO SCH (07:57)
[2022-06-07] MEDS: ARIPiprazole 10 MG TAB PO SCH (07:57)
[2022-06-07] MEDS ORDERED: IBUPROFEN 600 MG TAB PO PRN (08:39)
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
[2022-06-08] MEDS ORDERED: ARIPIPRAZOLE LAUROXIL IM SCH (12:00)
== END 2022-06-07 11:46 | disposition home or self-care (01) | DRG 885 ==
LOC: EC 17:38 → 3MHU 22:43
PROVIDERS: ADMIT Psychiatry & Neurology Psychiatry; ATTEND Psychiatry & Neurology Psychiatry
DX: F25.1 Schizoaffective disorder, depressive type (principal); R45.851 Suicidal ideations; F43.10 Post-traumatic stress disorder, unspecified; F60.3 Borderline personality disorder; G47.00 Insomnia, unspecified; F17.210 Nicotine dependence, cigarettes, uncomplicated; F12.10 Cannabis abuse, uncomplicated; J45.909 Unspecified asthma, uncomplicated; K21.9 Gastro-esophageal reflux disease without esophagitis; G43.909 Migraine, unspecified, not intractable, without status migrainosus; Z59.00 Homelessness unspecified; Z79.899 Other long term (current) drug therapy; Z91.51 Personal history of suicidal behavior; Z20.822 Contact with and (suspected) exposure to COVID-19; Z28.310 Unvaccinated for COVID-19; Z28.21 Immunization not carried out because of patient refusal; Z81.1 Family history of alcohol abuse and dependence; Z81.8 Family history of other mental and behavioral disorders; Z71.51 Drug abuse counseling and surveillance of drug abuser; Z56.0 Unemployment, unspecified; Z63.0 Problems in relationship with spouse or partner
CPT/HCPCS: 80053; 80061; 80306; 81003; 82075; 83036; 84443; 85025; 87635; 99285

== ENCOUNTER 2022-07-02 16:34 | Inpatient (IN) | payer MEDICAID, OTHER ==
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
[2022-07-02 17:23] LABS: Amphetamine Screen,Urine Not Detected (NotDetected); Barbiturate Screen,Urine Not Detected (NotDetected); Benzodiazepines Screen,Urine Not Detected (NotDetected); Cocaine Screen,Urine Not Detected (NotDetected); Methadone Screen, Urine Not Detected (NotDetected); Opiate Screen,Urine Not Detected (NotDetected); Oxycodone Screen, Urine Not Detected (NotDetected); Phencyclidine Screen,Urine Not Detected (NotDetected); Tricyclic Antidepressant,Urine Not Detected (NotDetected); Urn Cannabinoid Scrn Detected (NotDetected)
[2022-07-02] MEDS ORDERED: ACETAMINOPHEN TAB 325 MG TAB PO PRN (20:14)
[2022-07-02] MEDS ORDERED: MAGNESIUM HYDROXIDE 2,400 MG/10 ML CUP PO PRN (20:14)
[2022-07-02] MEDS ORDERED: HALOPERIDOL LACTATE 5 MG/ML 1 ML VIAL IM PRN (20:14)
[2022-07-02] MEDS ORDERED: MAG HYDROX/AL HYDROX/SIMETH 30 ML CUP PO PRN (20:14)
[2022-07-02] MEDS ORDERED: haloperidoL 5 MG TAB PO PRN (20:20)
[2022-07-02] MEDS ORDERED: LORazepam 2 MG/ML INJ IM PRN (20:20)
[2022-07-02] MEDS: MELATONIN 5 MG TABLET PO SCH (20:51)
[2022-07-02] MEDS: hydrOXYzine pamoate 25 MG CAP PO SCH (20:51)
[2022-07-02] MEDS: LORazepam 1 MG TAB PO PRN (20:52)
[2022-07-02] MEDS ORDERED: DOXEPIN 25 MG CAP PO SCH (21:00)
[2022-07-02] MEDS ORDERED: QUEtiapine 400 MG TAB PO SCH (21:00)
--- NOTE | 2022-07-02 23:39 | P.PN ---
Progress Note - Text Progress Note Date: 07/02/22 patient heavily medicated and could not be evaluated at this time due to sleeping
[2022-07-03 07:11] LABS: Basophils % (A) 1 %; Eosinophils # (A) 0.3 k/uL (0-0.7); Eosinophils % (A) 6 %; HCT 40.6 % (39.0-53.0); HGB 13.9 gm/dL (13.0-17.5); Lymphocytes # (A) 2.2 k/uL (1.0-4.8); Lymphocytes % (A) 45 %; MCHC 34.2 g/dL (31.0-37.0); MCV 93.5 fL (80.0-100.0); Mean Platelet Volume 8.6; Monocytes # (A) 0.4 k/uL (0-1.0); Monocytes % (A) 9 %; Neutrophils # (A) 1.8 k/uL (1.3-7.7); Neutrophils % (A) 37 %; Platelet Count 226 k/uL (150-450); RBC 4.34 m/uL (4.30-5.90); RDW 12.3 % (11.5-15.5); WBC 4.8 k/uL (3.8-10.6)
[2022-07-03 07:21] LABS: ALT 15 U/L (4-49); AST 19 U/L (17-59); African American GFR (CKD) >90 (>60 ml/min/1.73 sqM); Albumin 3.7 g/dL (3.5-5.0); Alkaline Phosphatase 56 U/L (38-126); Anion Gap 4 mmol/L; Blood Urea Nitrogen 14 mg/dL (9-20); Calcium 8.3 mg/dL (8.4-10.2); Carbon Dioxide 27 mmol/L (22-30); Chloride 109 mmol/L (98-107); Glucose 92 mg/dL (74-99); Non-African American GFR(CKD) >90 (>60 ml/min/1.73 sqM); Potassium 4.5 mmol/L (3.5-5.1); Sodium 140 mmol/L (137-145); Total Bilirubin 0.5 mg/dL (0.2-1.3); Total Protein 6.2 g/dL (6.3-8.2)
[2022-07-03] MEDS: hydrOXYzine pamoate 25 MG CAP PO SCH ×3 (08:15→19:59)
[2022-07-03] MEDS: NICOTINE 14MG/24HR PATCH TRANSDERM SCH (08:17)
[2022-07-03] MEDS: NICOTINE GUM (POLACRILEX) 2 MG GUM BUCCAL PRN ×2 (08:40→19:22)
[2022-07-03] MEDS ORDERED: ESCITALOPRAM 20 MG TAB PO SCH (09:00)
[2022-07-03 11:57] LABS: LDL Cholesterol,Calculated 77.7 mg/dL (0.0-131.0)
[2022-07-03] MEDS: ESCITALOPRAM 20 MG TAB PO SCH (19:59)
[2022-07-03] MEDS: MELATONIN 5 MG TABLET PO SCH (20:00)
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
[2022-07-04] MEDS: NICOTINE GUM (POLACRILEX) 2 MG GUM BUCCAL PRN ×4 (08:18→20:05)
[2022-07-04] MEDS: NICOTINE 14MG/24HR PATCH TRANSDERM SCH (08:18)
[2022-07-04] MEDS: hydrOXYzine pamoate 25 MG CAP PO SCH ×3 (08:19→20:03)
--- NOTE | 2022-07-04 10:01 | PN ---
PROGRESS NOTE DATE OF SERVICE: 07/04/2022 CHIEF COMPLAINT: The patient was depressed and had suicidal thinking. INTERVAL HISTORY: Patient has been doing fair. He had a quiet day yesterday. He was out on the unit. He wanders about. He socializes with others. He has been cooperative with care. It is noted that he was in the 1030 group and the following was documented: "The patient was in good spirits during group. He was seen smiling and talking with other patient's." He said that he barely slept last night, today he has been up. He says that he has barely slept for the last 5 days, which is one of his immediate issues. He does acknowledge that his mood seems to be somewhat better and he has a better outlook. He continues with some anxiety. He does say his energy is low, most likely relating to poor sleep. He tolerates his psychotropic medications. MENTAL STATUS: Patient sat without restlessness. Eye contact was fair. Psychomotor activity was slow. Speech was monotone. He answered questions with brief responses. He did not say a lot. His affect was blunted. His mood is reserved. He did not appear to be significantly distressed. There was no indication of thought disorder. He reported that he is not having thoughts of harm today. Cognition was clear. ASSESSMENT: I will continue the current diagnosis and treatment plan. I will continue psychotropic medications the same. It is noteworthy that basically from the point that the patient left the hospitals at the end of May, he has been off medications and essentially has regressed to where he was when he was admitted for the May admission. At this point, the game plan is just to restart medications that he had been on. I discussed with the patient that therapy with antidepressants does take time. He is showing some improvement overall. It is not clear that there should be any other medications added to his regimen and that I would just give him more time to progress. We will focus on stabilization and discharge planning. MMGONZALESL / SARAYN: [id number] /
[2022-07-04] MEDS: MELATONIN 5 MG TABLET PO SCH (20:03)
[2022-07-04] MEDS: ESCITALOPRAM 20 MG TAB PO SCH (20:03)
[2022-07-04] MEDS ORDERED: traZODone HCL 100 MG TAB PO SCH (21:00)
[2022-07-05] MEDS: NICOTINE GUM (POLACRILEX) 2 MG GUM BUCCAL PRN ×3 (08:36→19:48)
[2022-07-05] MEDS: hydrOXYzine pamoate 25 MG CAP PO SCH ×3 (08:36→19:47)
[2022-07-05] MEDS: NICOTINE 14MG/24HR PATCH TRANSDERM SCH (08:36)
[2022-07-05] MEDS: LORazepam 1 MG TAB PO PRN (10:40)
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
[2022-07-05] MEDS: MELATONIN 5 MG TABLET PO SCH (19:46)
[2022-07-05] MEDS: QUEtiapine 200 MG TAB PO SCH (19:47)
[2022-07-05] MEDS: ESCITALOPRAM 20 MG TAB PO SCH (19:47)
--- NOTE | 2022-07-06 00:02 | CONS ---
CONSULTATION CHIEF COMPLAINT: Depression. HISTORY OF PRESENT ILLNESS: This is another admission for this 31-year-old male. He has been in depression over many years and has been in and out of the psych unit as well. He was last seen in August of last year and he has not been in the office since. REVIEW OF SYSTEMS: Otherwise unremarkable and noncontributory. Past medical history, family history, personal and social histories are to be found in his admitting summary and unremarkable. PHYSICAL EXAMINATION: VITAL SIGNS: Normal. HEAD, EARS, EYES, NOSE, MOUTH AND THROAT: Normal. CHEST: Clear. CARDIAC: Normal. ABDOMEN: Soft, nontender. EXTREMITIES: Normal. IMPRESSION: Depression. RECOMMENDATIONS: None. MMODL / IJN: [id number] /
[2022-07-06] MEDS: hydrOXYzine pamoate 25 MG CAP PO SCH ×3 (09:05→20:44)
[2022-07-06] MEDS: NICOTINE GUM (POLACRILEX) 2 MG GUM BUCCAL PRN ×3 (09:05→20:45)
[2022-07-06] MEDS: NICOTINE 14MG/24HR PATCH TRANSDERM SCH (09:05)
[2022-07-06] MEDS: LORazepam 1 MG TAB PO PRN ×2 (11:50→20:44)
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
[2022-07-06] MEDS: MELATONIN 5 MG TABLET PO SCH (20:45)
[2022-07-06] MEDS: ESCITALOPRAM 20 MG TAB PO SCH (20:45)
[2022-07-06] MEDS: QUEtiapine 200 MG TAB PO SCH (20:45)
--- NOTE | 2022-07-06 23:47 | P.PN ---
Progress Note - Text Progress Note Date: 07/06/[address] Dr Galvan who is the patient PCP
[2022-07-07 07:23] VITALS: BP 104/55; PULSE 59; RESP 14; TEMP 97.7
[2022-07-07] MEDS: hydrOXYzine pamoate 25 MG CAP PO SCH (09:32)
[2022-07-07] MEDS: NICOTINE 14MG/24HR PATCH TRANSDERM SCH (09:32)
[2022-07-07] MEDS: NICOTINE GUM (POLACRILEX) 2 MG GUM BUCCAL PRN (10:55)
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
== END 2022-07-07 13:10 | disposition home or self-care (01) | DRG 885 ==
LOC: EC 16:34 → 3MHU 20:10
PROVIDERS: ADMIT Psychiatry & Neurology Psychiatry; ATTEND Psychiatry & Neurology Psychiatry
DX: F31.9 Bipolar disorder, unspecified (principal); R45.851 Suicidal ideations; E11.9 Type 2 diabetes mellitus without complications; Z20.822 Contact with and (suspected) exposure to COVID-19; F12.23 Cannabis dependence with withdrawal; F90.9 Attention-deficit hyperactivity disorder, unspecified type; F17.210 Nicotine dependence, cigarettes, uncomplicated; I25.10 Atherosclerotic heart disease of native coronary artery without angina pectoris; J44.9 Chronic obstructive pulmonary disease, unspecified; J45.909 Unspecified asthma, uncomplicated; F10.20 Alcohol dependence, uncomplicated; F60.3 Borderline personality disorder; F43.10 Post-traumatic stress disorder, unspecified; G43.909 Migraine, unspecified, not intractable, without status migrainosus; G47.00 Insomnia, unspecified; I10 Essential (primary) hypertension; K21.9 Gastro-esophageal reflux disease without esophagitis; R45.850 Homicidal ideations; Z79.899 Other long term (current) drug therapy; G62.9 Polyneuropathy, unspecified; Z87.828 Personal history of other (healed) physical injury and trauma; Z86.79 Personal history of other diseases of the circulatory system; Z91.030 Bee allergy status; Z88.8 Allergy status to other drugs, medicaments and biological substances
CPT/HCPCS: 80053; 80061; 80306; 82075; 83036; 84443; 85025; 87635; 99285